=== PATIENT | male | born 1960 | race African-American/Black ===

== ENCOUNTER 2017-07-08 17:16 | Emergency (ER) | payer SELFPAY ==
[~2017-07-08] VITALS: Ht 175.3 cm; Wt 68.0 kg
[2017-07-08 17:17] VITALS: BP 167/96; PULSE 89; RESP 16; TEMP 98.7; O2SAT 98
[2017-07-08] MEDS ORDERED: AZIT500T2 PO (17:46)
[2017-07-08] MEDS ORDERED: MOME17I EACH NARE (17:46)
--- NOTE | 2017-07-08 17:47 | PD ---
HPI Chief Complaint: Cold / Flu Symptoms Time Seen by Provider: 17:31 Travel History International Travel<30 days: No Contact w/Intl Traveler<30days: No Traveled to known affect area: No History of Present Illness HPI 57-year-old male presents to the emergency Department with complaint of cough, nasal congestion, sore throat 9 days. Report subjective fever. Denies abdominal pain, vomiting. Denies chest pain, shortness breath, wheezing. Denies ear pain. Has been taking TheraFlu and DayQuil/NyQuil for symptom management. No known sick contacts. Reports tobacco use. No known aggravating or relieving factors. Symptoms are mild in severity. No known allergies. No primary care provider. Denies significant past medical history. Has no medical complaints. No other modifying factors or associated signs and symptoms. PFSH Past Medical History Asthma: No Blood Disorders: No Heart Rhythm Problems: No Cancer: No Cardiovascular Problems: No High Cholesterol: No Chemotherapy: No Chest Pain: Yes Congestive Heart Failure: No COPD: No Diminished Hearing: No Endocrine: No Gout: Yes Genitourinary: No Hypertension: Yes Immune Disorder: No Musculoskeletal: No Neurologic: No Psychiatric: No Reproductive: No Respiratory: Yes (BRONCHITITS,previous pneumothorax) Immunizations Current: No Radiation Therapy: No Past Surgical History Abdominal Surgery: Yes (HERNIA REPAIR ) AICD: No Arteriovenous Shunt: No Cardiac Surgery: Yes Ear Surgery: No Endocrine Surgery: No Eye Surgery: No Genitourinary Surgery: No Insulin Pump: No Joint Replacement: No Oral Surgery: No Pacemaker: No Thoracic Surgery: Yes (2.5 MONTHS AGO, COLAPSED RIGHT LUNG) Other Surgery: Yes (CHEST TUBE 01/27/07 colapsed lung) Social History Alcohol Use: Yes Tobacco Use: Yes Substance Use: Yes (CRACK, CANNABIS ) Allergies-Medications (Allergen,Severity, Reaction): Coded Allergies: No Known Allergies (Verified Adverse Reaction, Unknown, 07/08/17) Reported Meds & Prescriptions Reported Meds & Active Scripts Active Nasonex Nasal [place] (Mometasone Furoate) 50 Mcg/Act Naspr 2 [place] EACH NARE DAILY PRN Azithromycin 500 Mg Tab 500 Mg PO DAILY Review of Systems Except as stated in HPI: all other systems reviewed are Neg Physical Exam Narrative GENERAL: Well-nourished, well-developed black male patient, in no acute distress ; afebrile, nontoxic-appearing SKIN: Warm and dry. No rash. HEAD: Atraumatic. Normocephalic. EYES: Pupils equal and round. No scleral icterus. No injection or drainage. ENT: Mucosa pink and moist. No erythema or exudates. No uvular edema. No uvular , palatal, or tonsillar deviation. Airway patent. EARS: Bilateral pinnae and external canals appear within normal limits. Bilateral tympanic membranes without erythema, dullness or perforation. NECK: Trachea midline. No lymphadenopathy. CARDIOVASCULAR: Regular rate and rhythm. No murmur appreciated. RESPIRATORY: No accessory muscle use. Clear to auscultation. Breath sounds equal bilaterally. No retractions or tachypnea. GASTROINTESTINAL: Abdomen soft, non-tender, nondistended. Hepatic and splenic margins not palpable. Bowel sounds are active 4 quadrants. MUSCULOSKELETAL: No obvious deformities. No clubbing. No cyanosis. No edema. NEUROLOGICAL: Awake and alert. Oriented 3. No obvious cranial nerve deficits. Motor grossly within normal limits. Normal speech. Moves all extremities. 5/5 strength to all extremities. PSYCHIATRIC: Appropriate mood and affect; insight and judgment normal. Data Data Last Documented VS Vital Signs Date Time Temp Pulse Resp B/P (MAP) Pulse Ox O2 Delivery O2 Flow Rate FiO2 07/08/17 17:17 98.7 89 16 167/96 (119) 98 Orders Orders Ed Discharge Order (07/08/17 17:47) [facility] Medical Decision Making Medical Screen Exam Complete: Yes Emergency Medical Condition: Yes Medical Record Reviewed: Yes Differential Diagnosis Upper respiratory infection, sinusitis, allergies Narrative Course 57-year-old male with cold symptoms 9 days. She is afebrile and nontoxic- appearing. Denies fever, vomiting. Physical exam is unremarkable. I will prescribe antibiotics secondary to length of illness. Azithromycin and Nasonex nasal spray prescribed for home. Instructed patient to follow up with primary care provider. Patient verbalizes understanding and agreement with treatment plan. Patient is medically cleared and stable for discharge. Discussed reasons to return to the emergency department. Patient agrees with treatment plan. The patients vital signs are stable and the patient is stable for outpatient follow-up and treatment. Patient discharged home, stable and in no acute distress. Diagnosis Primary Impression: Upper respiratory infection Qualified Codes: J06.9 - Acute upper respiratory infection, unspecified Referrals: [facility] Primary Care Physician Patient Instructions: General Instructions, Safe Use of Cough and Cold Medicines (ED), Upper Respiratory Infection (ED) Departure Forms: Tests/Procedures, Work Release Enter return to work date: Jul 10, 2017 Additional Instructions: Antibiotics as prescribed and complete full course Ibuprofen or Tylenol as instructed and as needed for fever/pain [id number] cough and cold medications as directed and as needed for symptom management Get plenty of sleep/rest Drink plenty of fluids to prevent dehydration; popsicles and Gatorade Use an air humidifier/turn off ceiling fans Follow-up with primary care provider Return immediately to the emergency department with worsening of symptoms Med/Other Pt SpecificInfo: Prescription(s) given Scripts Mometasone Nasal [place] (Nasonex Nasal [place]) 50 Mcg/Act Naspr 2 SPRAY EACH NARE DAILY Y for NASAL CONGESTION, #1 BOTTLE 0 Refills Prov: Ana Lilia Valentine 07/08/17 Azithromycin (Azithromycin) 500 Mg Tab 500 MG PO DAILY for Infection, #5 TAB 0 Refills Prov: Ana Lilia Valentine 07/08/17 Disposition: 01 DISCHARGE HOME Condition: Stable Ana Lilia Valentine Jul 08, 2017 17:47
== END 2017-07-08 18:31 | disposition home or self-care (01) ==
LOC: NEPD 17:16
DX: J06.9 Acute upper respiratory infection, unspecified (principal); M10.9 Gout, unspecified; I10 Essential (primary) hypertension; Z79.899 Other long term (current) drug therapy; Z72.0 Tobacco use
CPT/HCPCS: 99283

== ENCOUNTER 2018-04-13 11:28 | Inpatient (IN) ==
--- NOTE | 2018-04-13 12:16 | ED ---
HPI General Chief Complaint: Respiratory Symptoms Stated Complaint: respiratory Time Seen by Provider: 04/13/18 11:42 Source: patient Mode of arrival: ambulatory Limitations: no limitations History of Present Illness HPI Narrative: 58-year-old male notes 2-week history of cough, congestion and difficulty breathing. He states in 2006 he had to have oxygen when he had a collapsed lung but denies any recent use otherwise. He states he feels worse when he moves around. He states he tried to take [id number]-seriukc TheraFlu without relief. MD Complaint: Reports cough, rhinorrhea and nasal congestion Onset (ago): week(s) Duration: progressively worsening Relieving factors: nothing Exacerbating factors: other (Movement) Able to tolerate fluids by mouth: Yes Associated symptoms: Reports denies other symptoms Treatments prior to arrival: Reports "cold medicine" Related Data Home Medications Medication Instructions Recorded Confirmed No Known Home Medications 04/13/18 04/13/18 Allergies Allergy/AdvReac Type Severity Reaction Status Date / Time No Known Allergies Allergy Verified 04/13/18 11:39 Review of Systems ROS: all other systems reviewed are negative REPLACED BY [facility] Medical History Medical History Collapsed lung (Acute) Social History Social History Substance History: No History of Abuse Second Hand Smoke Exposure: Yes Smoking Status: Current some day smoker Tobacco Type: Cigarettes How Often Do You Have a Drink Containing Alcohol: Never Recent Travel in [facility] within the Last 8 Weeks: No Recent Out of Country Travel within the Last 8 Weeks: No Immunization History Tetanus Immunization: >5 Years Exam Narrative Exam Narrative: GENERAL: 58-year-old male in no apparent distress SKIN: Focused skin assessment warm/dry. HEAD: Atraumatic. Normocephalic. EYES: Pupils equal and round. No scleral icterus. No injection or drainage. ENT: No nasal bleeding or discharge. Mucous membranes pink and moist. NECK: Trachea midline. No JVD. CARDIOVASCULAR: Regular rate and rhythm. No murmur appreciated. RESPIRATORY: No accessory muscle use. Clear inspiration with decreased sounds bilaterally on expiration GASTROINTESTINAL: Abdomen soft, non-tender, nondistended. MUSCULOSKELETAL: No obvious deformities. No clubbing. No cyanosis. No edema. NEUROLOGICAL: Awake. Motor grossly within normal limits. Normal speech. Course Reevaluation(s) Reevaluation #1: X-ray shows possible pneumonia. Will check CTA given hypoxemia to rule out PE, patient agrees Reevaluation #2: Patient's oxygen has been weaned down to 2 L and he is feeling better after breathing treatments. Will admit for further care, given antibiotics. Patient agrees Consultations Consultation #1: dr morocho agrees to admit Initial Documented Vital Signs Temperature 99.6 F 04/13/18 11:33 Pulse Rate 102 H 04/13/18 11:33 Blood Pressure 141/82 H 04/13/18 11:33 Pulse Oximetry 84 L 04/13/18 11:33 Last Documented Vital Signs Temperature 98.9 F 04/13/18 16:00 Pulse Rate 89 04/13/18 16:00 Respiratory Rate 22 04/13/18 16:00 Blood Pressure 121/76 04/13/18 16:00 Pulse Oximetry 97 04/13/18 16:00 Medical Decision Making MDM Narrative Medical decision making narrative: Will check blood work, chest x-ray, EKG and dose with DuoNeb and reevaluate. Patient is requiring approximately 5 L of nasal cannula oxygen to maintain saturation and he will need to be admitted for further care after initial workup. If initial workup does not show reason for hypoxemia he may need a CT of the chest for possible PE Medical Screen Exam Complete: Yes Emergency Medical Condition: Yes Differential Diagnosis Differential Diagnosis: Pneumonia, pneumothorax, URI, anemia, renal failure Lab Data Lab results reviewed: Yes I reviewed the patient's lab results. Result diagrams: 04/13/18 11:45 04/13/18 12:41 Lab Results 04/13/18 04/13/18 04/13/18 Range/Units 11:45 11:45 11:45 WBC 7.9 (4.0-11.0) th/mm3 RBC 5.30 (4.50-5.90) mil/mm3 Hgb 12.3 L (13.0-17.0) gm/dL Hct 38.3 L (39.0-51.0) % MCV 72.3 L (80.0-100.0) fL MCH 23.3 L (27.0-34.0) pg MCHC 32.2 (32.0-36.0) % RDW 15.5 (11.6-17.2) % Plt Count 296 (150-450) th/mm3 MPV 8.5 (7.0-11.0) fL Neut % (Auto) 82.5 H (16.0-70.0) % Lymph % (Auto) 13.1 (9.0-44.0) % [place] % (Auto) 3.7 (0.0-8.0) % Eos % (Auto) 0.3 (0.0-4.0) % Baso % (Auto) 0.4 (0.0-2.0) % Neut # (Auto) 6.6 (1.8-7.7) th/mm3 Lymph # (Auto) 1.0 (1.0-4.8) th/mm3 [place] # (Auto) 0.3 (0.0-0.9) th/mm3 Eos # (Auto) 0.0 (0.0-0.4) th/mm3 Baso # (Auto) 0.0 (0.0-0.2) th/mm3 WBC Differential . Differential Comment Auto diff final PT 11.3 (9.8-11.6) sec INR 1.1 Ratio APTT 30.2 H (24.3-30.1) sec Sodium (136-145) meq/L Potassium (3.5-5.1) meq/L Chloride (98-107) meq/L Carbon Dioxide (21.0-32.0) meq/L Anion Gap (5-15) meq/L BUN (7-18) mg/dL Creatinine (0.60-1.30) mg/dL Estimated GFR (>89) mL/min Random Glucose (74-106) mg/dL Lactic Acid 1.2 (0.4-2.0) mmol/L Calcium (8.5-10.1) mg/dL Magnesium (1.5-2.5) mg/dL Total Bilirubin (0.2-1.0) mg/dL AST (15-37) U/L ALT (12-78) U/L Alkaline Phosphatase (45-117) U/L Total Creatine Kinase (39-308) U/L Troponin I (0.02-0.05) ng/mL B-Natriuretic Peptide (0-100) pg/mL Total Protein (6.4-8.2) g/dL Albumin (3.4-5.0) g/dL 04/13/18 04/13/18 Range/Units 11:45 12:41 WBC (4.0-11.0) th/mm3 RBC (4.50-5.90) mil/mm3 Hgb (13.0-17.0) gm/dL Hct (39.0-51.0) % MCV (80.0-100.0) fL MCH (27.0-34.0) pg MCHC (32.0-36.0) % RDW (11.6-17.2) % Plt Count (150-450) th/mm3 MPV (7.0-11.0) fL Neut % (Auto) (16.0-70.0) % Lymph % (Auto) (9.0-44.0) % [place] % (Auto) (0.0-8.0) % Eos % (Auto) (0.0-4.0) % Baso % (Auto) (0.0-2.0) % Neut # (Auto) (1.8-7.7) th/mm3 Lymph # (Auto) (1.0-4.8) th/mm3 [place] # (Auto) (0.0-0.9) th/mm3 Eos # (Auto) (0.0-0.4) th/mm3 Baso # (Auto) (0.0-0.2) th/mm3 WBC Differential Differential Comment PT (9.8-11.6) sec INR Ratio APTT (24.3-30.1) sec Sodium 132 L (136-145) meq/L Potassium 4.1 (3.5-5.1) meq/L Chloride 97 L (98-107) meq/L Carbon Dioxide 27.3 (21.0-32.0) meq/L Anion Gap 8 (5-15) meq/L BUN 13 (7-18) mg/dL Creatinine 1.06 (0.60-1.30) mg/dL Estimated GFR 87 L (>89) mL/min Random Glucose 104 (74-106) mg/dL Lactic Acid (0.4-2.0) mmol/L Calcium 8.0 L (8.5-10.1) mg/dL Magnesium 1.9 (1.5-2.5) mg/dL Total Bilirubin 0.4 (0.2-1.0) mg/dL AST 47 H (15-37) U/L ALT 11 L (12-78) U/L Alkaline Phosphatase 49 (45-117) U/L Total Creatine Kinase 70 (39-308) U/L Troponin I Less than 0.02 L (0.02-0.05) ng/mL B-Natriuretic Peptide 38 (0-100) pg/mL Total Protein 7.8 (6.4-8.2) g/dL Albumin 2.1 L (3.4-5.0) g/dL Imaging Data Attestation: I personally reviewed and interpreted this imaging study as follows : Radiologist's impression: Chest X-Ray 04/13/18 11:42 CONCLUSION: 1. Mild diffuse interstitial edema and patchy airspace disease in the left mid to lower lung zones. Differential considerations include pneumonia versus atypical pulmonary edema versus atypical pneumonia in the appropriate clinical setting. Chest CTA 04/13/18 14:02 CONCLUSION: 1. No CT evidence for pulmonary artery embolism. 2. Marked interval progression/development of interstitial lung disease combined with progressive paraseptal and centrilobular emphysema and bronchiectasis. Although nonspecific, differential considerations include significant interval occupational or inhalational exposure versus drug reaction. 3. Diffuse groundglass opacities in the lower lobes, left greater than right, with focal airspace consolidation in the left lower lobe may reflect more acute superimposed airspace disease. Discharge Plan Discharge Disposition Patient Disposition: 30 Still Patient Discharge Details Diagnosis: Pneumonia, Hypoxia Physicians Team ED Provider: Casi Cline Primary Care Provider: Primary Care Kanchan Bojorquez Attending Provider: Paris Morocho Status ED Status: Admitted Patient
[2018-04-13 12:22] LABS: Baso % (Auto) 0.4 % (0.0-2.0); Eos % (Auto) 0.3 % (0.0-4.0); Hematocrit 38.3 % (39.0-51.0); Hemoglobin 12.3 gm/dL (13.0-17.0); Lymph % (Auto) 13.1 % (9.0-44.0); Mean Corpuscular HGB Conc 32.2 % (32.0-36.0); Mean Corpuscular Hemoglobin 23.3 pg (27.0-34.0); Mean Corpuscular Volume 72.3 fL (80.0-100.0); Mean Platelet Volume 8.5 fL (7.0-11.0); Mono # (Auto) 0.3 th/mm3 (0.0-0.9); Mono % (Auto) 3.7 % (0.0-8.0); Neut # (Auto) 6.6 th/mm3 (1.8-7.7); Neut % (Auto) 82.5 % (16.0-70.0); Platelet Count 296 th/mm3 (150-450); Red Cell Distribution Width 15.5 % (11.6-17.2); White Blood Count 7.9 th/mm3 (4.0-11.0)
--- NOTE | 2018-04-13 12:24 | XR ---
EXAM DATE: 04/13/2018 11:42 AM EDT AGE/SEX: 58 years / Male INDICATIONS: Shortness of breath. CLINICAL DATA: This is the patient's initial encounter. Patient reports that signs and symptoms have been present for 1 day and indicates a pain score of 0/10. MEDICAL/SURGICAL HISTORY: None. None. [place] [facility] [place]. . Mild diffusely increased interstitial prominence with patchy airspace opacities in the left mid to lo wer lung zones. The cardiomediastinal contours are unremarkable. Osseous structures are intact. CONCLUSION: 1. Mild diffuse interstitial edema and patchy airspace disease in the left mid to lower lung zones. Differential considerations include pneumonia versus atypical pulmonary edema versus atypical pneumon ia in the appropriate clinical setting. Electronically signed by: Vic Woody MD 04/13/2018 12:23 PM EDT
[2018-04-13 12:30] LABS: Activated Partial Thrombo Time 30.2 sec (24.3-30.1); INR 1.1 Ratio; Prothrombin Time 11.3 sec (9.8-11.6)
[2018-04-13] MEDS ORDERED: Azithromycin Inj 500 MG in Sodium Chlor 0.9% Inj 250 ML IV.SIG STA (13:01)
[2018-04-13 13:53] LABS: Alanine Aminotransferase 11 U/L (12-78); Albumin 2.1 g/dL (3.4-5.0); Alkaline Phosphatase 49 U/L (45-117); Anion Gap 8 meq/L (5-15); Aspartate Aminotransferase 47 U/L (15-37); Blood Urea Nitrogen 13 mg/dL (7-18); Carbon Dioxide 27.3 meq/L (21.0-32.0); Chloride 97 meq/L (98-107); Glomerular Filtration Rate 87 mL/min (>89); Glucose,Random 104 mg/dL (74-106); Magnesium 1.9 mg/dL (1.5-2.5); Potassium 4.1 meq/L (3.5-5.1); Sodium 132 meq/L (136-145); Total Protein 7.8 g/dL (6.4-8.2)
[2018-04-13 13:56] LABS: Creatine Kinase 70 U/L (39-308)
[2018-04-13] MEDS ORDERED: MethylPREDNISolone Sod Succinate Inj 125 MG/2 ML Vial IV.PUSH ONE (15:29)
--- NOTE | 2018-04-13 16:51 | CT ---
EXAM DATE: 04/13/2018 2:11 PM EDT AGE/SEX: 58 years / Male INDICATIONS: Short of breath. CLINICAL DATA: This is the patient's initial encounter. Patient reports that signs and symptoms have been present for 1 day and indicates a pain score of 0/10. MEDICAL/SURGICAL HISTORY: . Collapsed lung. None. RADIATION DOSE: 6.83 CTDI (mGy) COMPARISON: [facility] – [place]ULMONARY [place]GIO[place], 02/23/2016. . TECHNIQUE: Volumetric scanning was performed using a multi-row detector CT scanner during bolus infu ashly of 65 ml Omnipaque 350 (iohexol) nonionic water-soluble contrast as a single exam dose. The edward a was post processed with a variety of visualization algorithms including full volume maximum intensi ty projection and sliding thin slab reformation. Using automated exposure control and adjustment of the mA and/or kV according to patient size, radiation dose was kept as low as reasonably achievable t o obtain optimal diagnostic quality images. DICOM format image data is available electronically for review and comparison. FINDINGS: Pulmonary Arteries: No filling defects are seen in the pulmonary arteries through the segmental vess els. The main pulmonary artery is normal in diameter. Lung: Severe diffuse interstitial thickening with relative subpleural sparing. Diffuse mild bronchie ctasis with biapical scarring and paraseptal emphysema. Previous examination demonstrated limited anika pical scarring, bronchiectasis and paraseptal emphysema. Moderate diffuse centrilobular emphysema. Di ffuse groundglass opacities in the lower lobes bilaterally, most prominently in the left lower lobe. There is also focal airspace consolidation in the left lower lobe. Pleura: No effusion, significant pleural thickening or pneumothorax. Mediastinum: Heart is unremarkable without pericardial effusion. Subcentimeter mediastinal nodes do not CT size criteria.. Osseous Structures: No abnormal focal lytic or blastic bony lesions. Other: Visulaized upper abdomen is unremarkable. CONCLUSION: 1. No CT evidence for pulmonary artery embolism. 2. Marked interval progression/development of interstitial lung disease combined with progressive pa raseptal and centrilobular emphysema and bronchiectasis. Although nonspecific, differential considera tions include significant interval occupational or inhalational exposure versus drug reaction. 3. Diffuse groundglass opacities in the lower lobes, left greater than right, with focal airspace co nsolidation in the left lower lobe may reflect more acute superimposed airspace disease. Electronically signed by: Vic Woody MD 04/13/2018 4:50 PM EDT
--- NOTE | 2018-04-13 17:59 | P.HPIM ---
History of Present Illness Primary Care Physician: No Primary Care Physician History of Present Illness: 58 year old male with history of spontaneous pneumothorax x2 and chronic tobacco abuse presenting with productive cough and shortness of breath x 2 weeks. Cough is productive of a clear mucous. He also complains of chest tightness, wheezing, and subjective fevers. He took OTC Theraflu with no relief. He reports improvement in his symptoms after nebulizers in the ED. He hasn't had a flu shot this season and he has never had a pneumonia vaccine. He endorses decreased appetite and unintentional weight loss. He thinks he may have lost close to 20 lb in about a month and a half. He states his normal weight is 155 lb. He checked his weight three days ago at [facility] and he was 131 lb. He denies night sweats, abdominal pain, melena, hematochezia, dysuria, rash , confusion, nausea, or vomiting. 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, negative stress test 2015, prior hospitalizations for PNA Surgical hx: hernia repair Family hx: both parents , mother had DM, father was murdered Social hx: lives with girlfriend, drinks about four beers daily, smokes 1/2PPD x 40 years, smokes crack cocaine - Diagnosis (1) Pneumonia (2) Hypoxia Inpatient Certification: I certify that the inpatient services were ordered in accordance with Medicare regulations governing the order. This includes certification that hospital inpatient services are reasonable and necessary and in the case of services not specified as inpatient-only under 42 CFR 419.22(n), that they are appropriately provided as inpatient services in accordance to with the 2-midnight benchmark under 43 CFR 412.3(e) Estimated Total Length of Stay (Days): 2 Plans for Post Hospital Care: Home Review of Systems All other systems reviewed negative except as stated in HPI PMFSH - History History Provided By: Patient - Medical History Medical History: Medical History (Last Updated 04/13/18 @ 18:23 by Paris Morocho MD) Spontaneous pneumothorax Tobacco abuse - Surgical History Surgical History: Surgical History (Last Updated 04/13/18 @ 18:22 by Paris Morocho MD) Hx of hernia repair - Family History Family History: Family History (Last Updated 04/13/18 @ 18:23 by Paris Morocho MD) Mother Diabetes - Social History I have reviewed the patient's Social History: Yes - Tobacco History Second Hand Smoke Exposure: Yes Tobacco Use In Past 30 Days: Yes Smoking Status: Current some day smoker Tobacco Type: Cigarettes - Alcohol History How Often Do You Have a Drink Containing Alcohol: Never - Substance Use History Substance History: No History of Abuse - Travel History Recent Travel in the [place] Within the Last 8 Weeks: No Recent Travel Out of the Country Within the Last 8 Weeks: No - Immunization History Tetanus Immunization: >5 Years Medications and Allergies Allergies Allergy/AdvReac Type Severity Reaction Status Date / Time No Known Allergies Allergy Verified 04/13/18 11:39 Home Medications Medication Instructions Recorded Confirmed Type No Known Home Medications 04/13/18 04/13/18 History Exam Vital signs: Vital Signs 04/13/18 11:33 04/13/18 11:39 04/13/18 11:45 Temperature 99.6 F Pulse Rate 102 H 93 H Respiratory Rate 29 H Blood Pressure 141/82 H 147/93 H Pulse Oximetry 84 L 97 95 04/13/18 12:03 04/13/18 13:36 04/13/18 14:00 Temperature Pulse Rate 92 H 85 85 Respiratory Rate 20 17 Blood Pressure 133/84 Pulse Oximetry 97 04/13/18 15:36 04/13/18 16:00 Temperature 98.9 F Pulse Rate 90 89 Respiratory Rate 22 22 Blood Pressure 121/76 Pulse Oximetry 97 Intake & Output 04/12/18 04/13/18 04/13/18 18:59 06:59 18:59 Intake Total 350 / 350 Balance 350 / 350 Weight 59.421 kg Intake: IV 350 / 350 Azithromycin Inj 500 MG In NS 250 / 250 Inj 250 ML @ 250 mls/hr IV.SIG STAT STA Rx#:[id number] Rocephin Inj 2,000 MG In NS Inj 100 / 100 100 ML @ 200 mls/hr IV.SIG STAT STA Rx#:[id number] Narrative: GENERAL: Thin male resting in bed in NAD. SKIN: Warm and dry. HEENT: AT/NC. PERRLA. No nasal drainage. Nasal cannula in place. MMM. Poor dentition. NECK: Supple no tender LAD or JVD. No palpable lymphadenopathy. HEART: RRR no m/r/g. LUNGS: No increased work of breathing. Left base with crackles otherwise clear and no wheezing. ABDOMEN: +BS, soft, NT, ND. EXTREMITIES: No LE edema. 2+ pedal pulses. NEURO: Awake and alert. Results - Labs CBC & Chem 7: 04/13/18 11:45 04/13/18 12:41 Labs: Short CBC 04/13/18 Range/Units 11:45 WBC 7.9 (4.0-11.0) th/mm3 Hgb 12.3 L (13.0-17.0) gm/dL Hct 38.3 L (39.0-51.0) % Plt Count 296 (150-450) th/mm3 BMP 04/13/18 12:41 Sodium 132 L Potassium 4.1 Chloride 97 L Carbon Dioxide 27.3 BUN 13 Creatinine 1.06 Calcium 8.0 L Cardiac Enzymes 04/13/18 Range/Units 12:41 Total Creatine Kinase 70 (39-308) U/L Troponin I Less than 0.02 L (0.02-0.05) ng/mL Liver Function 04/13/18 Range/Units 12:41 Total Bilirubin 0.4 (0.2-1.0) mg/dL AST 47 H (15-37) U/L ALT 11 L (12-78) U/L Alkaline Phosphatase 49 (45-117) U/L Albumin 2.1 L (3.4-5.0) g/dL - Imaging Impressions Chest X-Ray 04/13/18 11:42 CONCLUSION: 1. Mild diffuse interstitial edema and patchy airspace disease in the left mid to lower lung zones. Differential considerations include pneumonia versus atypical pulmonary edema versus atypical pneumonia in the appropriate clinical setting. Chest CTA 04/13/18 14:02 CONCLUSION: 1. No CT evidence for pulmonary artery embolism. 2. Marked interval progression/development of interstitial lung disease combined with progressive paraseptal and centrilobular emphysema and bronchiectasis. Although nonspecific, differential considerations include significant interval occupational or inhalational exposure versus drug reaction. 3. Diffuse groundglass opacities in the lower lobes, left greater than right, with focal airspace consolidation in the left lower lobe may reflect more acute superimposed airspace disease. Caprini VTE Risk Assessment Caprini VTE Risk Assessment: Moderate/High Risk (score >= 2) Caprini Risk Assessment Model: Point Value = 1 Point Value = 2 Point Value = 3 Point Value = 5 Age 41-60 Minor surgery BMI > 25 kg/m2 Swollen legs Varicose veins or History of unexplained or recurrent spontaneous Oral contraceptives or hormone replacement Sepsis (< 1 month) Serious lung disease, including pneumonia (< 1 month) Abnormal pulmonary function Acute myocardial infarction Congestive heart failure (< 1 month) History of inflammatory bowel disease Medical patient at bed rest Age 61-74 Arthroscopic surgery Major open surgery (> 45 min) Laparoscopic surgery (> 45 min) Malignancy Confined to bed (> 72 hours) Immobilizing plaster cast Central venous access Age >= 75 History of VTE Family history of VTE Factor V Leiden Prothrombin [id number] Lupus anticoagulant Anticardiolipin antibodies Elevated serum homocysteine Heparin-induced thrombocytopenia Other congenital or acquired thrombophilia Stroke (< 1 month) Elective arthroplasty Hip, pelvis, or leg fracture Acute spinal cord injury (< 1 month) Prophylaxis Regimen: Total Risk Factor Score Risk Level Prophylaxis Regimen 0-1 Low Early ambulation 2 Moderate Order ONE of the following: *Sequential Compression Device (SCD) *Heparin 5000 units SQ BID 3-4 Higher Order ONE of the following medications: *Heparin 5000 units SQ TID *Enoxaparin/Lovenox 40 mg SQ daily (WT < 150 kg, CrCl > 30 mL/min) *Enoxaparin/Lovenox 30 mg SQ daily (WT < 150 kg, CrCl > 10-29 mL/min) *Enoxaparin/Lovenox 30 mg SQ BID (WT < 150 kg, CrCl > 30 mL/min) AND/OR *Sequential Compression Device (SCD) 5 or more Highest Order ONE of the following medications: *Heparin 5000 units SQ TID (Preferred with Epidurals) *Enoxaparin/Lovenox 40 mg SQ daily (WT < 150 kg, CrCl > 30 mL/min) *Enoxaparin/Lovenox 30 mg SQ daily (WT < 150 kg, CrCl > 10-29 mL/min) *Enoxaparin/Lovenox 30 mg SQ BID (WT < 150 kg, CrCl > 30 mL/min) AND *Sequential Compression Device (SCD) Assessment and Plan - Assessment (1) Pneumonia Code(s): J18.9 - Pneumonia, unspecified organism Status: Acute (2) Hypoxia Code(s): R09.02 - Hypoxemia Status: Acute - Plan 58 year old male with history of spontaneous pneumothorax x2 and chronic tobacco abuse presenting with productive cough and shortness of breath x 2 weeks. CXR reveals patchy densities in left [id number] lung valera with associated crackles in that region. He will be admitted for pneumonia and hypoxia. 1. Pneumonia Saturating 84% on room air on arrival CXR showing patchy densities in the left middle and lower lung valera, personally reviewed by myself No leukocytosis but there is a prominence of neutrophils Lactic acid within normal limits CTA negative for PE but there is marketed interstitial lung disease with progressive emphysema bronchiectasis as well as diffuse groundglass opacities in the lower lobes with focal airspace consolidation left lower lobe consistent with PNA seen on CXR DuoNeb Q4 Albuterol nebulizer PRN Rocephin and azithromycin Supplemental O2 PRN Check sputum cultures, urine Legionella pneumococcal antigens, and influenza antigens 2. Anemia Hemoglobin 14 back in 2016 Patient denies any obvious bleeding or melena He does have an unintentional weight loss that he reports has been over the past month and a half CT chest negative for any signs of malignancy Will check a Hemoccult but he will at the very least need a colonoscopy as an outpatient. Has never had one and he is 58 3. Tobacco abuse Counseled on cessation Nicotine patch 4. Alcohol abuse Mildly elevated AST CIWA protocol 5. Cocaine abuse Counseled on cessation DVT prophylaxis: Lovenox Code Status: FULL Discussed Condition With: Patient (1) Pneumonia Qualifiers: Pneumonia type: due to unspecified organism Laterality: left Lung location: lower lobe of lung Qualified Code(s): J18.1 - Lobar pneumonia, unspecified organism
[2018-04-13] MEDS ORDERED: Acetaminophen 325 MG Tablet PO PRN (18:02)
[2018-04-13] MEDS ORDERED: Bisacodyl 10 MG Supp RECTAL PRN (18:02)
[2018-04-13] MEDS ORDERED: LORazepam 1 MG Tablet PO PRN (18:48)
[2018-04-13] MEDS ORDERED: Haloperidol Inj 5 MG/ML Ampul IV.PUSH PRN (18:48)
[2018-04-13] MEDS: guaiFENesin 600 MG ER Tablet PO SCH ×2 (19:39→21:49)
[2018-04-13] MEDS: Senna/Docusate Sodium 8.6/50 MG Tablet PO SCH ×2 (19:39→21:50)
[2018-04-13] MEDS: Enoxaparin Inj 40 MG/0.4 ML Syringe SQ SCH ×2 (19:39→21:49)
[2018-04-13] MEDS: MethylPREDNISolone Sod Succinate Inj 40 MG/ML Vial IV.PUSH SCH (23:19)
[2018-04-14] MEDS: MethylPREDNISolone Sod Succinate Inj 40 MG/ML Vial IV.PUSH SCH ×3 (05:05→16:40)
[2018-04-14 05:53] LABS: Baso % (Auto) 0.3 % (0.0-2.0); Hematocrit 36.1 % (39.0-51.0); Hemoglobin 11.5 gm/dL (13.0-17.0); Lymph # (Auto) 0.8 th/mm3 (1.0-4.8); Lymph % (Auto) 18.6 % (9.0-44.0); Mean Corpuscular HGB Conc 31.7 % (32.0-36.0); Mean Corpuscular Hemoglobin 23.3 pg (27.0-34.0); Mean Corpuscular Volume 73.5 fL (80.0-100.0); Mean Platelet Volume 8.6 fL (7.0-11.0); Mono # (Auto) 0.1 th/mm3 (0.0-0.9); Mono % (Auto) 1.6 % (0.0-8.0); Neut # (Auto) 3.4 th/mm3 (1.8-7.7); Neut % (Auto) 79.5 % (16.0-70.0); Platelet Count 275 th/mm3 (150-450); Red Blood Count 4.91 mil/mm3 (4.50-5.90); Red Cell Distribution Width 15.8 % (11.6-17.2); White Blood Count 4.2 th/mm3 (4.0-11.0)
[2018-04-14 06:16] LABS: Calcium 8.3 mg/dL (8.5-10.1); Potassium 4.4 meq/L (3.5-5.1)
[2018-04-14 08:36] VITALS: RESP 16
[2018-04-14] MEDS ORDERED: Azithromycin 250 MG Tablet PO SCH (09:00)
--- NOTE | 2018-04-14 09:42 | P.PN ---
Subjective Interval history: Follow-up for pneumonia. Patient is currently doing well. Denies any chest pain, shortness of breath, fever or chills. He admits to using crack cocaine but denies using any IV drugs. Physical Exam Vital signs: Vital Signs 04/13/18 11:33 04/13/18 11:39 04/13/18 11:45 Temperature 99.6 F Pulse Rate 102 H 93 H Respiratory Rate 29 H Blood Pressure 141/82 H 147/93 H Pulse Oximetry 84 L 97 95 04/13/18 12:03 04/13/18 13:36 04/13/18 14:00 Temperature Pulse Rate 92 H 85 85 Respiratory Rate 20 17 Blood Pressure 133/84 Pulse Oximetry 97 04/13/18 15:36 04/13/18 16:00 04/13/18 19:41 Temperature 98.9 F Pulse Rate 90 89 88 Respiratory Rate 22 22 16 Blood Pressure 121/76 Pulse Oximetry 97 96 04/13/18 20:00 04/13/18 23:56 04/14/18 00:00 Temperature 99.1 F 98.0 F Pulse Rate 90 76 87 Respiratory Rate 18 16 16 Blood Pressure 136/76 119/70 Pulse Oximetry 93 L 92 L 04/14/18 04:00 04/14/18 04:10 04/14/18 08:00 Temperature 97.5 F L 97.4 F L Pulse Rate 76 74 Respiratory Rate 18 16 Blood Pressure 184/88 H 123/79 118/75 Pulse Oximetry 92 L 93 L 04/14/18 08:53 Temperature Pulse Rate 74 Respiratory Rate 16 Blood Pressure Pulse Oximetry 93 L Intake & Output 04/13/18 04/14/18 04/14/18 18:59 06:59 18:59 Intake Total 350 / 350 620 / 620 Balance 350 / 350 620 / 620 Weight 59.421 kg 52.3 kg Intake: IV 350 / 350 Azithromycin Inj 500 MG In NS 250 / 250 Inj 250 ML @ 250 mls/hr IV.SIG STAT STA Rx#:[id number] Rocephin Inj 2,000 MG In NS Inj 100 / 100 100 ML @ 200 mls/hr IV.SIG STAT STA Rx#:[id number] Oral 620 / 620 Other: # Voids 4 Narrative: GENERAL: Alert, oriented x3, NAD. SKIN: Warm and dry. HEAD: Normocephalic. EYES: No scleral icterus. No injection or drainage. NECK: Supple, trachea midline. No JVD or lymphadenopathy. CARDIOVASCULAR: Regular rate and rhythm without murmurs, gallops, or rubs. RESPIRATORY: Breath sounds equal bilaterally. No accessory muscle use. GASTROINTESTINAL: Abdomen soft, non-tender, nondistended. MUSCULOSKELETAL: No cyanosis, or edema. BACK: Nontender without obvious deformity. No CVA tenderness. Results - Labs CBC & Chem 7: 04/14/18 04:07 04/14/18 04:07 Laboratory Results - last 24 hr 04/13/18 04/13/18 04/13/18 11:45 11:45 11:45 WBC 7.9 RBC 5.30 Hgb 12.3 L Hct 38.3 L MCV 72.3 L MCH 23.3 L MCHC 32.2 RDW 15.5 Plt Count 296 MPV 8.5 Neut % (Auto) 82.5 H Lymph % (Auto) 13.1 Hancock % (Auto) 3.7 Eos % (Auto) 0.3 Baso % (Auto) 0.4 Neut # (Auto) 6.6 Lymph # (Auto) 1.0 Hancock # (Auto) 0.3 Eos # (Auto) 0.0 Baso # (Auto) 0.0 WBC Differential . Differential Comment Auto diff final PT 11.3 INR 1.1 APTT 30.2 H Sodium Potassium Chloride Carbon Dioxide Anion Gap BUN Creatinine Estimated GFR Random Glucose Lactic Acid 1.2 Calcium Magnesium Total Bilirubin AST ALT Alkaline Phosphatase Total Creatine Kinase Troponin I B-Natriuretic Peptide Total Protein Albumin 04/13/18 04/13/18 04/14/18 11:45 12:41 04:07 WBC 4.2 RBC 4.91 Hgb 11.5 L Hct 36.1 L MCV 73.5 L MCH 23.3 L MCHC 31.7 L RDW 15.8 Plt Count 275 MPV 8.6 Neut % (Auto) 79.5 H Lymph % (Auto) 18.6 Hancock % (Auto) 1.6 Eos % (Auto) 0.0 Baso % (Auto) 0.3 Neut # (Auto) 3.4 Lymph # (Auto) 0.8 L Hancock # (Auto) 0.1 Eos # (Auto) 0.0 Baso # (Auto) 0.0 WBC Differential . Differential Comment Auto diff final PT INR APTT Sodium 132 L Potassium 4.1 Chloride 97 L Carbon Dioxide 27.3 Anion Gap 8 BUN 13 Creatinine 1.06 Estimated GFR 87 L Random Glucose 104 Lactic Acid Calcium 8.0 L Magnesium 1.9 Total Bilirubin 0.4 AST 47 H ALT 11 L Alkaline Phosphatase 49 Total Creatine Kinase 70 Troponin I Less than 0.02 L B-Natriuretic Peptide 38 Total Protein 7.8 Albumin 2.1 L 04/14/18 04:07 WBC RBC Hgb Hct MCV MCH MCHC RDW Plt Count MPV Neut % (Auto) Lymph % (Auto) Hancock % (Auto) Eos % (Auto) Baso % (Auto) Neut # (Auto) Lymph # (Auto) Hancock # (Auto) Eos # (Auto) Baso # (Auto) WBC Differential Differential Comment PT INR APTT Sodium 133 L Potassium 4.4 Chloride 97 L Carbon Dioxide 26.0 Anion Gap 10 BUN 15 Creatinine 1.09 Estimated GFR 85 L Random Glucose 227 H D Lactic Acid Calcium 8.3 L Magnesium Total Bilirubin AST ALT Alkaline Phosphatase Total Creatine Kinase Troponin I B-Natriuretic Peptide Total Protein Albumin Microbiology 04/14/18 05:23 Stool Stool Occult Blood (DANILO) - Final Hemoccult negative 04/13/18 18:46 Nasal Wash Influenza Types A,B Antigen - Final Negative for FLU A and B antigen Infection due to influenza A or B cannot be ruled out since the antigen present in the sample may be below the detection limit of the test. - Imaging Impressions Chest X-Ray 04/13/18 11:42 CONCLUSION: 1. Mild diffuse interstitial edema and patchy airspace disease in the left mid to lower lung zones. Differential considerations include pneumonia versus atypical pulmonary edema versus atypical pneumonia in the appropriate clinical setting. Chest CTA 04/13/18 14:02 CONCLUSION: 1. No CT evidence for pulmonary artery embolism. 2. Marked interval progression/development of interstitial lung disease combined with progressive paraseptal and centrilobular emphysema and bronchiectasis. Although nonspecific, differential considerations include significant interval occupational or inhalational exposure versus drug reaction. 3. Diffuse groundglass opacities in the lower lobes, left greater than right, with focal airspace consolidation in the left lower lobe may reflect more acute superimposed airspace disease. Assessment and Plan - Assessment (1) Pneumonia Code(s): J18.9 - Pneumonia, unspecified organism Status: Acute (2) Hypoxia Code(s): R09.02 - Hypoxemia Status: Acute - Plan Mr. Landry is a 58 year old male with history of spontaneous pneumothorax x2 and chronic tobacco abuse presenting with productive cough and shortness of breath x 2 weeks. CXR reveals patchy densities in left mid-to- lower lung valera with associated crackles in that region. He will be admitted for pneumonia and hypoxia. 1. Pneumonia Saturating 84% on room air on arrival. Currently 93% on 2L. Will try to wean off O2. CXR showing patchy densities in the left middle and lower lung valera CTA negative for PE but there is marketed interstitial lung disease with progressive emphysema bronchiectasis as well as diffuse groundglass opacities in the lower lobes with focal airspace consolidation left lower lobe consistent with PNA seen on CXR DuoNeb Q4 Rocephin and azithromycin. Will consider Levaquin upon discharge. Supplemental O2 PRN Check sputum cultures, urine Legionella pneumococcal antigens, and influenza antigens 2. Anemia Hemoglobin 14 back in 2016 Patient denies any obvious bleeding or melena He does have an unintentional weight loss that he reports has been over the past month and a half CT chest negative for any signs of malignancy Will check a Hemoccult but he will at the very least need a colonoscopy as an outpatient. Has never had one and he is 58. -Will refer patient to [facility] for primary care and possibly preventative procedure referral to GI. 3. Tobacco abuse Counseled on cessation Nicotine patch 4. Alcohol abuse Mildly elevated AST 47. CIWA protocol 5. Cocaine abuse Counseled on cessation DVT prophylaxis: Lovenox Discharge Plan: Possible discharge today or in the AM on 04/15/2018. (1) Pneumonia Qualifiers: Pneumonia type: due to unspecified organism Laterality: left Lung location: lower lobe of lung Qualified Code(s): J18.1 - Lobar pneumonia, unspecified organism
[2018-04-14] MEDS: guaiFENesin 600 MG ER Tablet PO SCH (10:10)
[2018-04-14] MEDS: Senna/Docusate Sodium 8.6/50 MG Tablet PO SCH (10:10)
[2018-04-14 12:38] VITALS: BP 124/75; PULSE 84; TEMP 97.9; O2SAT 99
--- NOTE | 2018-04-14 16:11 | ECG ---
Date Performed: 04/13/2018 Time Performed: 11:43:51 PTAGE: 58 years EKG: Sinus rhythm NORMAL ECG Since PREVIOUS TRACING , no significant change noted PREVIOUS TRACIN02/23/2016 18.54.00 DOCTOR: Jeff Escobar Interpretating Date/Time 04/14/2018 16:10:14
== END 2018-04-14 17:52 | disposition home or self-care (01) ==
LOC: NEPC 11:28 → NEDA 17:27 → N07 18:58
PROVIDERS: ADMIT Hospitalist; ATTEND Hospitalist

== ENCOUNTER 2018-04-18 08:26 | Inpatient (IN) ==
[2018-04-18 09:06] LABS: Baso % (Auto) 0.1 % (0.0-2.0); Hematocrit 39.4 % (39.0-51.0); Hemoglobin 12.8 gm/dL (13.0-17.0); Lymph # (Auto) 1.1 th/mm3 (1.0-4.8); Lymph % (Auto) 9.4 % (9.0-44.0); Mean Corpuscular HGB Conc 32.5 % (32.0-36.0); Mean Corpuscular Hemoglobin 23.2 pg (27.0-34.0); Mean Corpuscular Volume 71.3 fL (80.0-100.0); Mean Platelet Volume 7.7 fL (7.0-11.0); Mono # (Auto) 0.5 th/mm3 (0.0-0.9); Mono % (Auto) 4.5 % (0.0-8.0); Neut # (Auto) 9.6 th/mm3 (1.8-7.7); Platelet Count 331 th/mm3 (150-450); Red Blood Count 5.52 mil/mm3 (4.50-5.90); White Blood Count 11.2 th/mm3 (4.0-11.0)
[2018-04-18 09:27] LABS: Albumin 2.3 g/dL (3.4-5.0); Anion Gap 9 meq/L (5-15); Aspartate Aminotransferase 28 U/L (15-37); Blood Urea Nitrogen 16 mg/dL (7-18); Calcium 8.6 mg/dL (8.5-10.1); Carbon Dioxide 24.5 meq/L (21.0-32.0); Chloride 97 meq/L (98-107); Glomerular Filtration Rate 87 mL/min (>89); Glucose,Random 92 mg/dL (74-106); Sodium 130 meq/L (136-145)
[2018-04-18 09:31] LABS: Alanine Aminotransferase 18 U/L (12-78); Alkaline Phosphatase 50 U/L (45-117); Total Protein 8.3 g/dL (6.4-8.2)
--- NOTE | 2018-04-18 09:34 | ED ---
HPI General Chief complaint: Respiratory Symptoms Stated complaint: Chest Pain/SOB Complaint Time Seen by Provider: 04/18/18 08:43 History of Present Illness HPI narrative: This is a 58-year-old male recently released from this facility for hypoxic respiratory failure and pneumonia, has a history of cigarette smoking which is significant as well as crack cocaine smoking. Adamantly denies any IV drug abuse. Patient was admitted for a few day stay, was able to be titrated off of his oxygen and had 92% on room air on the patient accompanied by girlfriend and both of them agree that he was improving until earlier this morning when he became fairly short of breath. No fevers cough without sputum production, he also endorses a 20-25 pound weight loss over the past 30 days. He states is not been eating or drinking very much either and endorses a decreased appetite. Patient states his been tested for HIV and hepatitis in the past and has been negative. No history of tuberculosis exposure. Does endorse night sweats. On arrival the patient saturations are 86 %, duration is this morning, context as above, associated signs symptoms as above. Related Data Previous Rx's Medication Instructions Recorded levofloxacin [Levaquin] 750 mg PO DAILY #5 tab 04/14/18 prednisone 20 mg PO BID #10 tab 04/14/18 Allergies Allergy/AdvReac Type Severity Reaction Status Date / Time No Known Allergies Allergy Verified 04/18/18 08:47 Review of Systems ROS: all other systems reviewed are negative PMFSH Family History Family History Mother Diabetes Social History Social History Substance History: Active Abuse Second Hand Smoke Exposure: Yes Smoking Status: Current every day smoker Tobacco Type: Cigarettes How Often Do You Have a Drink Containing Alcohol: 4 or more times a week Recent Travel in [facility] within the Last 8 Weeks: No Recent Out of Country Travel within the Last 8 Weeks: No Immunization History Tetanus Immunization: >5 Years Exam Narrative Exam Narrative: GENERAL: Well-developed under nourished male, temporal wasting, tripod position with shortness of breath. SKIN: Focused skin assessment warm/dry. No rash no wound seen on his person. HEAD: Atraumatic. Normocephalic. EYES: Pupils equal and round. No scleral icterus. No injection or drainage. ENT: No nasal bleeding or discharge. Mucous membranes pink and moist. NECK: Trachea midline. No JVD. CARDIOVASCULAR: Tachycardic with regular rhythm, occasional PVCs.. No murmur appreciated. RESPIRATORY: Lungs actually clear, no wheezes rales or rhonchi, there is good air entry, the patient does have accessory muscle use intercostal retractions supraclavicular retractions. Tachypneic. GASTROINTESTINAL: Abdomen soft, non-tender, nondistended. Hepatic and splenic margins not palpable. MUSCULOSKELETAL: No obvious deformities. No clubbing. No cyanosis. No edema. NEUROLOGICAL: Awake and alert. No obvious cranial nerve deficits. Motor grossly within normal limits. Normal speech. PSYCHIATRIC: Appropriate mood and affect; insight and judgment normal. Course Initial Documented Vital Signs Temperature 99.3 F 04/18/18 08:35 Pulse Rate 105 H 04/18/18 08:35 Respiratory Rate 20 04/18/18 08:35 Blood Pressure 122/78 04/18/18 08:35 Pulse Oximetry 90 L 04/18/18 08:35 Last Documented Vital Signs Temperature 99.3 F 04/18/18 08:35 Pulse Rate 82 04/18/18 10:14 Respiratory Rate 25 H 04/18/18 10:14 Blood Pressure 134/90 04/18/18 10:14 Pulse Oximetry 98 04/18/18 10:59 Critical Care Time Critical Care Time: Yes Total Critical Care Time: 35 Attestation: Aggregate critical care time was 35 minutes. Time to perform other separately billable procedures was not included in the critical care time. My time did not include minutes spent treating any other patients simultaneously or on activities that did not directly contribute to the patient's treatment. The services I provided to this patient were to treat and/or prevent clinically significant deterioration that could result in: , disability, organ failure I provided critical care services requiring my management, as noted below: Chart data review, documentation time, medication orders and management, vital sign assessments/reviewing monitor data, ordering and reviewing lab tests, ordering and interpreting/reviewing x-rays and diagnostic studies, care of the patient and discussion of the patient with the admitting physicians. Medical Decision Making MDM Narrative Medical decision making narrative: Patient room to the emergency department, placed on nasal cannula oxygen and is saturating 95% on 3 L. His tachycardia is resolving with the oxygenation. This may just be a case of very bad and advancing pulmonary fibrosis, I think tuberculosis and HIV are also in the differential diagnosis. The patient was placed in isolation, I have ordered the appropriate testing, pro-calcitonin ordered as well. Review of his last records a CAT scan did show a generalized fibrotic pattern with some groundglass opacities as well. On his last admission influenza testing, strep pneumonia was negative, Legionella was negative. Blood cultures negative for 4 days. Patient will obviously require admission for continuing hypoxic respiratory failure. patient rapid HIV test went to [facility] blot. Patient was informed of preliminary findings in absence of family members/friends. The results of the test was also discussed with Dr. Cortez we discussed the possibility of adding Bactrim for possible PCP pneumonia. Medical Screen Exam Complete: Yes Emergency Medical Condition: Yes Lab Data Result diagrams: 04/18/18 08:55 04/18/18 08:55 Lab Results 04/18/18 04/18/18 04/18/18 Range/Units 08:55 08:55 08:55 WBC 11.2 H (4.0-11.0) th/mm3 RBC 5.52 (4.50-5.90) mil/mm3 Hgb 12.8 L (13.0-17.0) gm/dL Hct 39.4 (39.0-51.0) % MCV 71.3 L (80.0-100.0) fL MCH 23.2 L (27.0-34.0) pg MCHC 32.5 (32.0-36.0) % RDW 15.0 (11.6-17.2) % Plt Count 331 (150-450) th/mm3 MPV 7.7 (7.0-11.0) fL Neut % (Auto) 86.0 H (16.0-70.0) % Lymph % (Auto) 9.4 (9.0-44.0) % [place] % (Auto) 4.5 (0.0-8.0) % Eos % (Auto) 0.0 (0.0-4.0) % Baso % (Auto) 0.1 (0.0-2.0) % Neut # (Auto) 9.6 H (1.8-7.7) th/mm3 Lymph # (Auto) 1.1 (1.0-4.8) th/mm3 [place] # (Auto) 0.5 (0.0-0.9) th/mm3 Eos # (Auto) 0.0 (0.0-0.4) th/mm3 Baso # (Auto) 0.0 (0.0-0.2) th/mm3 WBC Differential . Differential Comment Auto diff final Sodium 130 L (136-145) meq/L Potassium 4.0 (3.5-5.1) meq/L Chloride 97 L (98-107) meq/L Carbon Dioxide 24.5 (21.0-32.0) meq/L Anion Gap 9 (5-15) meq/L BUN 16 (7-18) mg/dL Creatinine 1.06 (0.60-1.30) mg/dL Estimated GFR 87 L (>89) mL/min POC Glucose (68-110) mg/dl Random Glucose 92 (74-106) mg/dL Lactic Acid 1.3 (0.4-2.0) mmol/L Calcium 8.6 (8.5-10.1) mg/dL Total Bilirubin 0.6 (0.2-1.0) mg/dL AST 28 (15-37) U/L ALT 18 (12-78) U/L Alkaline Phosphatase 50 (45-117) U/L Total Protein 8.3 H (6.4-8.2) g/dL Albumin 2.3 L (3.4-5.0) g/dL Procalcitonin (0.00-0.08) ng/mL TSH (0.358-3.740) uIU/mL HIV 1&2 Ab/P24 Ag 4thGn (Nonreactive) 04/18/18 04/18/18 04/18/18 Range/Units 08:57 09:42 09:42 WBC (4.0-11.0) th/mm3 RBC (4.50-5.90) mil/mm3 Hgb (13.0-17.0) gm/dL Hct (39.0-51.0) % MCV (80.0-100.0) fL MCH (27.0-34.0) pg MCHC (32.0-36.0) % RDW (11.6-17.2) % Plt Count (150-450) th/mm3 MPV (7.0-11.0) fL Neut % (Auto) (16.0-70.0) % Lymph % (Auto) (9.0-44.0) % [place] % (Auto) (0.0-8.0) % Eos % (Auto) (0.0-4.0) % Baso % (Auto) (0.0-2.0) % Neut # (Auto) (1.8-7.7) th/mm3 Lymph # (Auto) (1.0-4.8) th/mm3 [place] # (Auto) (0.0-0.9) th/mm3 Eos # (Auto) (0.0-0.4) th/mm3 Baso # (Auto) (0.0-0.2) th/mm3 WBC Differential Differential Comment Sodium (136-145) meq/L Potassium (3.5-5.1) meq/L Chloride (98-107) meq/L Carbon Dioxide (21.0-32.0) meq/L Anion Gap (5-15) meq/L BUN (7-18) mg/dL Creatinine (0.60-1.30) mg/dL Estimated GFR (>89) mL/min POC Glucose 107 (68-110) mg/dl Random Glucose (74-106) mg/dL Lactic Acid (0.4-2.0) mmol/L Calcium (8.5-10.1) mg/dL Total Bilirubin (0.2-1.0) mg/dL AST (15-37) U/L ALT (12-78) U/L Alkaline Phosphatase (45-117) U/L Total Protein (6.4-8.2) g/dL Albumin (3.4-5.0) g/dL Procalcitonin (0.00-0.08) ng/mL TSH 1.190 (0.358-3.740) uIU/mL HIV 1&2 Ab/P24 Ag 4thGn Reflex H (Nonreactive) 04/18/18 Range/Units 09:42 WBC (4.0-11.0) th/mm3 RBC (4.50-5.90) mil/mm3 Hgb (13.0-17.0) gm/dL Hct (39.0-51.0) % MCV (80.0-100.0) fL MCH (27.0-34.0) pg MCHC (32.0-36.0) % RDW (11.6-17.2) % Plt Count (150-450) th/mm3 MPV (7.0-11.0) fL Neut % (Auto) (16.0-70.0) % Lymph % (Auto) (9.0-44.0) % [place] % (Auto) (0.0-8.0) % Eos % (Auto) (0.0-4.0) % Baso % (Auto) (0.0-2.0) % Neut # (Auto) (1.8-7.7) th/mm3 Lymph # (Auto) (1.0-4.8) th/mm3 [place] # (Auto) (0.0-0.9) th/mm3 Eos # (Auto) (0.0-0.4) th/mm3 Baso # (Auto) (0.0-0.2) th/mm3 WBC Differential Differential Comment Sodium (136-145) meq/L Potassium (3.5-5.1) meq/L Chloride (98-107) meq/L Carbon Dioxide (21.0-32.0) meq/L Anion Gap (5-15) meq/L BUN (7-18) mg/dL Creatinine (0.60-1.30) mg/dL Estimated GFR (>89) mL/min POC Glucose (68-110) mg/dl Random Glucose (74-106) mg/dL Lactic Acid (0.4-2.0) mmol/L Calcium (8.5-10.1) mg/dL Total Bilirubin (0.2-1.0) mg/dL AST (15-37) U/L ALT (12-78) U/L Alkaline Phosphatase (45-117) U/L Total Protein (6.4-8.2) g/dL Albumin (3.4-5.0) g/dL Procalcitonin 0.14 H (0.00-0.08) ng/mL TSH (0.358-3.740) uIU/mL HIV 1&2 Ab/P24 Ag 4thGn (Nonreactive) Imaging Data Radiologist's impression: Chest X-Ray 04/18/18 08:48 CONCLUSION: 1. Persistent diffuse interstitial prominence with improved patchy bilateral groundglass opacities. Although improved in comparison to most recent exam, overall abnormalities are new since more remote 2016 exam. Differential considerations again include interval drug reaction or inhalational exposure with improving superimposed airspace disease/infection. Discharge Plan Discharge Disposition Patient Disposition: 30 Still Patient Discharge Condition Condition: Fair Discharge Details Diagnosis: Acute respiratory failure with hypoxia, Pneumonia, Abnormal weight loss, Sepsis , Failure of outpatient treatment Physicians Team ED Provider: Fernando Pastrana Primary Care Provider: Primary Care Kanchan Bojorquez Attending Provider: Malik Cortez Discharge Interventions Interventions: ED Discharge Assessment Last Done: 04/18/18 13:42 Status ED Status: Left Department Discharge Information Discharge Date/Time: 04/18/18 13:42
[2018-04-18] MEDS ORDERED: Vancomycin Inj 1 GM/200 ML PIGGYBACK IV.SIG ONE (09:37)
[2018-04-18] MEDS ORDERED: Piperacil/Tazo 4.5 GM Premix 4.5 GM/100 ML BAG IV.SIG ONE (09:37)
--- NOTE | 2018-04-18 09:43 | XR ---
EXAM DATE: 04/18/2018 8:48 AM EDT AGE/SEX: 58 years / Male INDICATIONS: Fever. CLINICAL DATA: This is the patient's initial encounter. Patient reports that signs and symptoms have been present for 1 day and indicates a pain score of 0/10. MEDICAL/SURGICAL HISTORY: None. None. COMPARISON: [facility] [place]ST 1V SINGLE AP, 04/13/2018. . FINDINGS: Persistent diffuse interstitial prominence with improved diffuse patchy groundglass airspace opacitie s. Cardiomediastinal contours are within normal limits. Remainder of exam is unchanged. CONCLUSION: 1. Persistent diffuse interstitial prominence with improved patchy bilateral groundglass opacities. Although improved in comparison to most recent exam, overall abnormalities are new since more remote 2016 exam. Differential considerations again include interval drug reaction or inhalational exposure with improving superimposed airspace disease/infection. Electronically signed by: Vic Woody MD 04/18/2018 9:41 AM EDT
[2018-04-18] MEDS ORDERED: Vancomycin Inj 1,000 MG in Sodium Chlor 0.9% Inj 250 ML IV.SIG ONE (10:00)
[2018-04-18] MEDS ORDERED: Bisacodyl 10 MG Supp RECTAL PRN (10:13)
--- NOTE | 2018-04-18 14:42 | P.HP ---
History of Present Illness Service: Mr. Landry is a 58-year-old -[place] male with a history of substance abuse, tobacco abuse who presented to the emergency department due to dyspnea, chest pain associated with breathing. Patient denies any cough, fever, sputum production. He reports 20-25 pound weight loss over the last 1 month. Patient denies any radiation of his chest pain, no sweating or nausea vomiting. No abdominal pain. No changes in bowel or bladder habits. On arrival, his saturation was low documented saturation 90% on arrival. However with supplemental oxygen his saturation went up to 96-98%. 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, negative stress test 2016, prior hospitalizations for PNA Surgical hx: hernia repair Family hx: both parents , mother had DM, father was murdered Social hx: lives with girlfriend, drinks about four beers daily, smokes 1/2PPD x 40 years, smokes crack cocaine Primary Care Physician: No Primary Care Physician Review of Systems All other systems reviewed negative except as stated in HPI PMFSH - History History Provided By: Patient - Medical History Medical History: Medical History (Last Reviewed 04/18/18 @ 08:53 by Billie Rollins) Spontaneous pneumothorax Tobacco abuse - Surgical History Surgical History: Surgical History (Last Reviewed 04/18/18 @ 08:53 by Billie Rollins) Hx of hernia repair - Family History Family History: Family History (Last Updated 04/13/18 @ 18:23 by Paris Morocho MD) Mother Diabetes - Tobacco History Second Hand Smoke Exposure: Yes Tobacco Use In Past 30 Days: Yes (7 cigarettes a day) Smoking Status: Current every day smoker Tobacco Type: Cigarettes - Alcohol History How Often Do You Have a Drink Containing Alcohol: 4 or more times a week - Substance Use History Substance History: Active Abuse - Substance Use Type Crack/Cocaine Status: Active Route Used: Inhalation Frequency: half a gram, twice a week Reason for Use: Feels Good - Travel History Recent Travel in the [place] Within the Last 8 Weeks: No Recent Travel Out of the Country Within the Last 8 Weeks: No - Immunization History Tetanus Immunization: >5 Years Medications and Allergies Active Medications: Active Medications Al Hydroxide/Mg Hydroxide (Milk Of Magnesia Liq) 30 ml PO Q12H PRN PRN Reason: Mild Constipation Bisacodyl (Dulcolax Supp) 10 mg RECTAL DAILY PRN PRN Reason: SEVERE CONSITIPATION Lactulose (Lactulose Liq) 30 ml PO DAILY PRN PRN Reason: SEVERE CONSITIPATION Senna/Docusate Sodium (Dona-Colace) 1 tab PO BID STEVIE Sennosides (Senokot) 17.2 mg PO Q12H PRN PRN Reason: Moderate Constipation Allergies Allergy/AdvReac Type Severity Reaction Status Date / Time No Known Allergies Allergy Verified 04/18/18 08:47 Exam Vital signs: Vital Signs 04/18/18 08:35 04/18/18 08:48 04/18/18 10:14 Temperature 99.3 F Pulse Rate 105 H 87 82 Respiratory Rate 20 25 H Blood Pressure 122/78 134/90 Pulse Oximetry 90 L 96 96 04/18/18 10:59 Temperature Pulse Rate Respiratory Rate Blood Pressure Pulse Oximetry 98 Intake & Output 04/17/18 04/18/18 04/18/18 18:59 06:59 18:59 Intake Total 350 / 350 Balance 350 / 350 Weight 59.421 kg Intake: IV 350 / 350 Zosyn 4.5 GM Premix 4.5 gm In 100 / 100 100 ml @ 200 mls/hr IV.SIG ONCE ONE Rx#:[id number] Vancomycin Inj 1,000 MG In NS 250 / 250 Inj 250 ML @ 250 mls/hr IV.SIG ONCE ONE Rx#:[id number] Other: Weight On Admission 56.5 kg Narrative: GENERAL: Alert, NAD. Cachectic appearance. SKIN: No rashes, ecchymoses or lesions. Warm and dry. HEAD: Atraumatic. Normocephalic. No temporal or scalp tenderness. EYES: Pupils equal round and reactive. No injection or drainage. ENT: Nose without bleeding, purulent drainage or septal hematoma. Airway patent. NECK: Trachea midline. No lymphadenopathy. Supple, nontender, no meningeal signs. CARDIOVASCULAR: Regular rate and rhythm without murmurs, gallops, or rubs. No JVD. RESPIRATORY: Clear to auscultation. Breath sounds equal bilaterally. No wheezes , rales, or rhonchi. GASTROINTESTINAL: Abdomen soft, non-tender, nondistended. No guarding. MUSCULOSKELETAL: Extremities without clubbing, cyanosis, or edema. NEUROLOGICAL: Awake and alert. Cranial nerves II through XII intact. No focal neurological deficits. Normal speech. Results - Labs CBC & Chem 7: 04/18/18 08:55 04/18/18 08:55 Labs: Laboratory Results - last 24 hr 04/18/18 04/18/18 04/18/18 08:55 08:55 08:55 WBC 11.2 H RBC 5.52 Hgb 12.8 L Hct 39.4 MCV 71.3 L MCH 23.2 L MCHC 32.5 RDW 15.0 Plt Count 331 MPV 7.7 Neut % (Auto) 86.0 H Lymph % (Auto) 9.4 [place] % (Auto) 4.5 Eos % (Auto) 0.0 Baso % (Auto) 0.1 Neut # (Auto) 9.6 H Lymph # (Auto) 1.1 [place] # (Auto) 0.5 Eos # (Auto) 0.0 Baso # (Auto) 0.0 WBC Differential . Differential Comment Auto diff final Sodium 130 L Potassium 4.0 Chloride 97 L Carbon Dioxide 24.5 Anion Gap 9 BUN 16 Creatinine 1.06 Estimated GFR 87 L POC Glucose Random Glucose 92 Lactic Acid 1.3 Calcium 8.6 Total Bilirubin 0.6 AST 28 ALT 18 Alkaline Phosphatase 50 Total Protein 8.3 H Albumin 2.3 L Procalcitonin TSH HIV 1&2 Ab/P24 Ag 4thGn 04/18/18 04/18/18 04/18/18 08:57 09:42 09:42 WBC RBC Hgb Hct MCV MCH MCHC RDW Plt Count MPV Neut % (Auto) Lymph % (Auto) [place] % (Auto) Eos % (Auto) Baso % (Auto) Neut # (Auto) Lymph # (Auto) [place] # (Auto) Eos # (Auto) Baso # (Auto) WBC Differential Differential Comment Sodium Potassium Chloride Carbon Dioxide Anion Gap BUN Creatinine Estimated GFR POC Glucose 107 Random Glucose Lactic Acid Calcium Total Bilirubin AST ALT Alkaline Phosphatase Total Protein Albumin Procalcitonin TSH 1.190 HIV 1&2 Ab/P24 Ag 4thGn Reflex H 04/18/18 09:42 WBC RBC Hgb Hct MCV MCH MCHC RDW Plt Count MPV Neut % (Auto) Lymph % (Auto) [place] % (Auto) Eos % (Auto) Baso % (Auto) Neut # (Auto) Lymph # (Auto) [place] # (Auto) Eos # (Auto) Baso # (Auto) WBC Differential Differential Comment Sodium Potassium Chloride Carbon Dioxide Anion Gap BUN Creatinine Estimated GFR POC Glucose Random Glucose Lactic Acid Calcium Total Bilirubin AST ALT Alkaline Phosphatase Total Protein Albumin Procalcitonin 0.14 H TSH HIV 1&2 Ab/P24 Ag 4thGn - Imaging Impressions Chest X-Ray 04/18/18 08:48 CONCLUSION: 1. Persistent diffuse interstitial prominence with improved patchy bilateral groundglass opacities. Although improved in comparison to most recent exam, overall abnormalities are new since more remote 2016 exam. Differential considerations again include interval drug reaction or inhalational exposure with improving superimposed airspace disease/infection. Caprini VTE Risk Assessment Caprini VTE Risk Assessment: Moderate/High Risk (score >= 2) Caprini Risk Assessment Model: Point Value = 1 Point Value = 2 Point Value = 3 Point Value = 5 Age 41-60 Minor surgery BMI > 25 kg/m2 Swollen legs Varicose veins or History of unexplained or recurrent spontaneous Oral contraceptives or hormone replacement Sepsis (< 1 month) Serious lung disease, including pneumonia (< 1 month) Abnormal pulmonary function Acute myocardial infarction Congestive heart failure (< 1 month) History of inflammatory bowel disease Medical patient at bed rest Age 61-74 Arthroscopic surgery Major open surgery (> 45 min) Laparoscopic surgery (> 45 min) Malignancy Confined to bed (> 72 hours) Immobilizing plaster cast Central venous access Age >= 75 History of VTE Family history of VTE Factor V Leiden Prothrombin [id number] Lupus anticoagulant Anticardiolipin antibodies Elevated serum homocysteine Heparin-induced thrombocytopenia Other congenital or acquired thrombophilia Stroke (< 1 month) Elective arthroplasty Hip, pelvis, or leg fracture Acute spinal cord injury (< 1 month) Prophylaxis Regimen: Total Risk Factor Score Risk Level Prophylaxis Regimen 0-1 Low Early ambulation 2 Moderate Order ONE of the following: *Sequential Compression Device (SCD) *Heparin 5000 units SQ BID 3-4 Higher Order ONE of the following medications: *Heparin 5000 units SQ TID *Enoxaparin/Lovenox 40 mg SQ daily (WT < 150 kg, CrCl > 30 mL/min) *Enoxaparin/Lovenox 30 mg SQ daily (WT < 150 kg, CrCl > 10-29 mL/min) *Enoxaparin/Lovenox 30 mg SQ BID (WT < 150 kg, CrCl > 30 mL/min) AND/OR *Sequential Compression Device (SCD) 5 or more Highest Order ONE of the following medications: *Heparin 5000 units SQ TID (Preferred with Epidurals) *Enoxaparin/Lovenox 40 mg SQ daily (WT < 150 kg, CrCl > 30 mL/min) *Enoxaparin/Lovenox 30 mg SQ daily (WT < 150 kg, CrCl > 10-29 mL/min) *Enoxaparin/Lovenox 30 mg SQ BID (WT < 150 kg, CrCl > 30 mL/min) AND *Sequential Compression Device (SCD) Assessment and Plan - Plan Mr. Landry is a 58-year-old -[place] male with a history of substance abuse including alcohol and tobacco who presents to the emergency department due to hypoxia, pleuritic chest pain. Patient denies any cough, fever, chills. He also reports 20-25 pound weight loss over last 1 month. Possible PCP pneumonia Probable HIV -HIV 1 and 2 antibody/P24 4th generation is positive. Confirmation may be required. -Patient's weight loss and cachectic appearance are concerning for HIV -For now, will start empiric treatment with Bactrim DS 2 tablets 3 times a day. (15-20 mg/kg/day of TMP) -TB QuantiFERON gold tests are pending. -Continue supplemental oxygen to keep oxygen saturation above 90%. -Procalcitonin is slightly elevated to 0.14. WBC 11.2 Tobacco and Alcohol abuse Illicit drug abuse (Crack/Cocaine) -Patient counselled. Hyponatremia - Na 130. It is possible this is also related to HIV related SIADH. Full code. Lovenox.
--- NOTE | 2018-04-18 20:00 | ECG ---
Date Performed: 04/18/2018 Time Performed: 08:49:26 PTAGE: 58 years EKG: Sinus rhythm WITH OCCASIONAL SUPRAVENTRICULAR PREMATURE COMPLEXES BORDERLINE ECG PREVIOUS TRACING : 04/13/2018 11.43 DOCTOR: Juan Pablo Agudelo Interpretating Date/Time 04/18/2018 19:58:15
[2018-04-18] MEDS: Senna/Docusate Sodium 8.6/50 MG Tablet PO SCH (21:40)
[2018-04-18] MEDS: Enoxaparin Inj 40 MG/0.4 ML Syringe SQ SCH (21:40)
[2018-04-18] MEDS: Acetaminophen 325 MG Tablet PO PRN (22:37)
[2018-04-19] MEDS: Senna/Docusate Sodium 8.6/50 MG Tablet PO SCH ×2 (08:30→21:13)
[2018-04-19] MEDS: Acetaminophen 325 MG Tablet PO PRN ×3 (11:15→21:29)
[2018-04-19 17:21] LABS: HIV 1 Antibody Positive (Negative); HIV 2 Antibody Indeterminate (Negative)
--- NOTE | 2018-04-19 17:40 | P.PNIM ---
Subjective Interval history: Patient is laying down in bed. He appears weak. Today he is complaining of a cough, he does not have any other complaints. Physical Exam Vital signs: Vital Signs 04/18/18 20:00 04/19/18 00:00 04/19/18 03:25 Temperature 99.3 F 98.5 F Pulse Rate 85 82 78 Respiratory Rate 18 18 16 Blood Pressure 140/92 H 112/68 137/90 Pulse Oximetry 94 L 95 95 04/19/18 07:45 04/19/18 08:00 04/19/18 08:03 Temperature Pulse Rate 89 88 Respiratory Rate 16 16 22 Blood Pressure 118/79 Pulse Oximetry 98 98 04/19/18 12:00 04/19/18 12:59 04/19/18 16:00 Temperature 98.8 F 98.4 F Pulse Rate 84 82 80 Respiratory Rate 18 18 18 Blood Pressure 102/66 126/77 Pulse Oximetry 92 L 92 L Intake & Output 04/18/18 04/19/18 04/19/18 18:59 06:59 18:59 Intake Total 400 / 400 Balance 400 / 400 Weight 59.421 kg Intake: IV 350 / 350 Zosyn 4.5 GM Premix 4.5 gm In 100 / 100 100 ml @ 200 mls/hr IV.SIG ONCE ONE Rx#:[id number] Vancomycin Inj 1,000 MG In NS 250 / 250 Inj 250 ML @ 250 mls/hr IV.SIG ONCE ONE Rx#:[id number] Oral 50 / 50 Other: Weight On Admission 56.5 kg Narrative: General patient states that he feels weak. HEENT extraocular movements are intact, clear oropharyngeal mucosa, no JVD Cardiovascular S1-S2 audible, RRR, no murmurs rubs or gallops Respiratory coarseness bilaterally Abdomen soft, nontender, nondistended, normal bowel sounds Extremities no edema 2+ distal pulses in bilateral upper and lower extremities Neuro there are no neurological deficits. Results - Labs CBC & Chem 7: 04/18/18 08:55 04/18/18 08:55 Laboratory Results - last 24 hr 04/18/18 04/19/18 09:42 10:06 Lactate Dehydrogenase 386 H HIV-1 Antibody Positive HIV-2 Antibody Indeterminate HIV (1&2) Ag & Ab Refer Reactive Microbiology 04/18/18 08:50 Blood - Peripheral Aerobic Blood Culture - Preliminary No growth in 1 day 04/18/18 08:50 Blood - Peripheral Anaerobic Blood Culture - Preliminary No growth in 1 day 04/18/18 08:55 Blood - Peripheral Aerobic Blood Culture - Preliminary No growth in 1 day 04/18/18 08:55 Blood - Peripheral Anaerobic Blood Culture - Preliminary No growth in 1 day Assessment and Plan - Plan This patient is a 58-year-old -[place] Citizen male with a history of polysubstance abuse. Patient admits to using crack cocaine frequently and presented to our emergency department with complaints of dyspnea and chest pain. He complained of a mild cough however not having any fevers or any significant sputum production patient initially. He also reports a 25 pound weight loss over the past 1-2 months. In the emergency department he was found to be hypoxic and was then placed on supplemental oxygen. Chest x-ray showed bilateral interstitial infiltrates. 1. Acute hypoxic respiratory failure possibly secondary to PCP pneumonia 2. HIV positive screen 3. Polysubstance abuse Initially the patient was found to have a low oxygen saturation of around 90%. He was placed on supplemental oxygen. Chest imaging shows bilateral interstitial infiltrates Patient's HIV screen is positive and the chest imaging is concerning for PCP pneumonia. LDH is also elevated. An ABG was ordered today. Patient is currently on Bactrim. Infectious disease was consulted to evaluate the patient. I would appreciate their recommendations. Patient was counseled on his polysubstance abuse and he says he is seeking help. Sputum AFBs were also ordered. Sputum culture also ordered. Continue breathing treatments and supplemental oxygen. We will continue the current management and I will follow up with infectious disease recommendations. Heparin for DVT prophylaxis
[2018-04-19] MEDS ORDERED: Heparin - SQ 10,000 UNITS/ML Vial SQ SCH (21:00)
[2018-04-19] MEDS: Enoxaparin Inj 40 MG/0.4 ML Syringe SQ SCH (21:12)
[2018-04-20] MEDS: Acetaminophen 325 MG Tablet PO PRN ×3 (06:38→22:14)
[2018-04-20] MEDS: Senna/Docusate Sodium 8.6/50 MG Tablet PO SCH ×2 (11:21→22:15)
--- NOTE | 2018-04-20 13:00 | P.PNIM ---
Subjective Interval history: Patient says he feels okay on supplemental oxygen. He is laying down in bed watching football game. Physical Exam Vital signs: Vital Signs 04/19/18 12:59 04/19/18 16:00 04/19/18 19:37 Temperature 98.4 F Pulse Rate 82 80 78 Respiratory Rate 18 18 18 Blood Pressure 126/77 Pulse Oximetry 92 L 04/19/18 20:00 04/20/18 00:00 04/20/18 04:00 Temperature 98.8 F 98.4 F 98.5 F Pulse Rate 90 78 74 Respiratory Rate 20 20 20 Blood Pressure 154/90 H 131/81 132/80 Pulse Oximetry 95 95 97 04/20/18 08:30 04/20/18 12:37 Temperature Pulse Rate 81 79 Respiratory Rate 15 15 Blood Pressure Pulse Oximetry 95 Intake & Output 04/19/18 04/20/18 04/20/18 18:59 06:59 18:59 Other: Date of Last Bowel Movement 04/18/18 Narrative: General patient states that he feels anxious because he is curious about his diagnosis. HEENT extraocular movements are intact, clear oropharyngeal mucosa, no JVD Cardiovascular S1-S2 audible Respiratory coarseness bilaterally Abdomen soft, nontender, nondistended, normal bowel sounds Extremities no edema 2+ distal pulses in bilateral upper and lower extremities Neuro there are no neurological deficits. Results - Labs CBC & Chem 7: 04/18/18 08:55 04/18/18 08:55 Laboratory Results - last 24 hr 04/18/18 09:42 HIV-1 Antibody Positive HIV-2 Antibody Indeterminate HIV (1&2) Ag & Ab Refer Reactive Microbiology 04/18/18 08:50 Blood - Peripheral Aerobic Blood Culture - Preliminary No growth in 2 days 04/18/18 08:50 Blood - Peripheral Anaerobic Blood Culture - Preliminary No growth in 2 days 04/18/18 08:55 Blood - Peripheral Aerobic Blood Culture - Preliminary No growth in 2 days 04/18/18 08:55 Blood - Peripheral Anaerobic Blood Culture - Preliminary No growth in 2 days 04/19/18 17:48 Sputum - Expectorated Sputum Gram Stain - Final Assessment and Plan - Plan This patient is a 58-year-old -[place] male with a history of polysubstance abuse. Patient admits to using crack cocaine frequently and presented to our emergency department with complaints of dyspnea and chest pain. He complained of a mild cough however not having any fevers or any significant sputum production patient initially. He also reports a 25 pound weight loss over the past 1-2 months. In the emergency department he was found to be hypoxic and was then placed on supplemental oxygen. Chest x-ray showed bilateral interstitial infiltrates. 1. Acute hypoxic respiratory failure possibly secondary to PCP pneumonia 2. HIV positive screen 3. Polysubstance abuse Initially the patient was found to have a low oxygen saturation of around 90%. He was placed on supplemental oxygen. Currently he is on 3 L. Chest imaging shows bilateral interstitial infiltrates Labs show the patient is HIV positive. CD4 count pending LDH is also elevated. Infectious disease consulted. I will follow-up with the recommendations Patient is currently on Bactrim. Patient was counseled on his polysubstance abuse and he says he is seeking help. Sputum AFBs were also ordered. Sputum culture ordered and is pending Continue breathing treatments and supplemental oxygen. We will continue the current management and I will follow up with infectious disease recommendations. Lovenox for DVT prophylaxis
[2018-04-20 14:12] LABS: ABG Base Excess -0.7 mmol/L (-2-2); ABG PCO2 28 mmHg (38-42); ABG PO2 41 mmHg (61-120)
--- NOTE | 2018-04-20 15:36 | CT ---
EXAM DATE: 04/20/2018 3:03 PM EDT AGE/SEX: 58 years / Male INDICATIONS: Shortness of breath and chest pain. CLINICAL DATA: This is the patient's initial encounter. Patient reports that signs and symptoms have been present for 1 day and indicates a pain score of 5/10. MEDICAL/SURGICAL HISTORY: . respiratory failure . hernia repair RADIATION DOSE: 5.27 CTDI (mGy) COMPARISON: . TECHNIQUE: Multiple contiguous axial images were obtained through the chest without contrast. Image s were obtained in suspended respiration using multiple row detector helical technique. Using automa annamaria exposure control and adjustment of the mA and/or kV according to patient size, radiation dose was kept as low as reasonably achievable to obtain optimal diagnostic quality images. DICOM format imag e data is available electronically for review and comparison. FINDINGS: Lungs: The lungs are symmetrically aerated. Diffuse interstitial lung disease is again identified. S cattered emphysematous changes are also noted. There has been interval development of minimal nodular infiltrate within the right lower lobe posteriorly. Mediastinum: There has been interval development of a moderate-sized pericardial effusion. Coronary artery calcification are noted. Pleurae: No evidence of focal thickening or pleural effusion. Axillae: Unremarkable. Bony Structures: Unremarkable. Miscellaneous: The examination was extended to include the upper abdomen, and both adrenal glands ar e normal in size and configuration. CONCLUSION: 1. Interval development of moderate-sized pericardial effusion. 2. Persistent diffuse interstitial lung disease with scattered emphysematous changes. 3. Interval development of minimal nodular infiltrate within the right lower lobe posteriorly. 4. Coronary artery calcifications. Electronically signed by: Fernando Young MD 04/20/2018 3:35 PM EDT
--- NOTE | 2018-04-20 16:04 | P.CONID ---
History of Present Illness Service: Infectious disease Consult date: 04/20/18 Requesting Physician: Teagan Valdez Reason for Consult: Evaluate patient with HIV, possible PCP Primary Care Provider: No Primary Care Physician History of Present Illness: Patient seen and examined. Records reviewed. Patient is a 58-year-old male, presented to the hospital complaining of shortness of breath associated with some chest pain. Patient was recently hospitalized April 13 and at that time he presented with 2-week history of shortness of breath cough. His chest x-ray showed bilateral interstitial infiltrate and some patchy infiltrate on the left lung. He was afebrile at that time, and his white count was normal. Patient was treated as pneumonia, and he had improvement and he was discharged to complete a total of 7 days of antibiotic for pneumonia. He was given Levaquin. Patient came back this time complaining of shortness of breath again and this time he is also complaining of some chest discomfort when he breathes. He has some cough but not really able to bring up any phlegm. Has not had any fever. Patient also complaining of some difficulty swallowing and pain with swallowing. He has had some nausea but no magdaleno vomiting. He denies any urinary complaints. His chest x-ray this time has shown some improvement in the infiltrates on the left lung. HIV testing was done and HIV 1 came back positive. His LDH is elevated. His white count was a little bit up and it is 11,000. CT of the chest did not show any significant change compared to his prior CT but except for the presence of pericardial effusion. 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 He has had problem with spontaneous pneumothorax, and actually in 2011 he underwent VATS procedure with right upper lobe bullectomy, and partial pleurectomy. 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 Patient denies any sexual contact with known HIV patients. He denies any history of STD. He has never been in snf. He denies IV drug use but does smoke crack cocaine. Patient has been tested HIV negative back in 2006. He has no prior history of exposure to tuberculosis or having a diagnosis of tuberculosis. Patient also has had significant weight loss recently. Infectious disease consultation has been requested to evaluate the patient with no HIV positive disease and possible PCP. Past Medical History Copd with bullous emphysema Spontaneous PTX Past Surgical History Hernia repair VATS with RUL bullectomy, partial pleurectomy 2011 CT placement for PTX bronchoscopy Social History Long time smoke Drinks beer Smokes crack cocaine Denies IVDU never been incarcerated Multiple sexual partner No Hx exposure to HIV No Hx esporusre to PTB No STD Review of Systems Constitutional: Reports fatigue, Reports lack of energy, Reports weight loss, Denies chills, Denies fever(s), Denies headache(s), Denies night sweats Eyes: Denies discharge, Denies dry eyes Ears, Nose, Mouth, and Throat: Reports difficulty swallowing, Reports pain with swallowing, Denies ear pain, Denies nasal discharge, Denies sore throat Cardiovascular: Reports chest pain, Reports shortness of breath Respiratory: Reports chest congestion, Reports cough, Reports shortness of breath Gastrointestinal: Reports difficulty swallowing, Reports nausea, Reports pain with swallowing, Denies abdominal pain, Denies loose stools, Denies vomiting Genitourinary: Denies difficulty urinating, Denies painful urination Musculoskeletal: Denies joint pain, Denies joint swelling Skin/Breast: Denies rash, Denies wounds PMFSH - History History Provided By: Patient - Medical History Medical History: Medical History (Last Reviewed 04/18/18 @ 08:53 by Billie Rollins) Spontaneous pneumothorax Tobacco abuse - Surgical History Surgical History: Surgical History (Last Reviewed 04/18/18 @ 08:53 by Billie Rollins) Hx of hernia repair - Family History Family History: Family History (Last Updated 04/13/18 @ 18:23 by Paris Morocho MD) Mother Diabetes - Tobacco History Second Hand Smoke Exposure: Yes Tobacco Use In Past 30 Days: Yes (7 cigarettes a day) Smoking Status: Current every day smoker Tobacco Type: Cigarettes - Alcohol History How Often Do You Have a Drink Containing Alcohol: 4 or more times a week - Substance Use History Substance History: Active Abuse - Substance Use Type Crack/Cocaine Status: Active Route Used: Inhalation Frequency: half a gram, twice a week Reason for Use: Feels Good - Travel History Recent Travel in the [facility] Within the Last 8 Weeks: No Recent Travel Out of the Country Within the Last 8 Weeks: No - Immunization History Tetanus Immunization: >5 Years Medications and Allergies Active Medications: Active Medications Acetaminophen (Tylenol) 650 mg PO Q4H PRN PRN Reason: Headache, fever, pain 1-4 Last Admin: 04/20/18 11:21 Dose: 650 mg Al Hydroxide/Mg Hydroxide (Milk Of Magnesia Liq) 30 ml PO Q12H PRN PRN Reason: Mild Constipation Albuterol (Duoneb Neb (Prn)) 1 ampul NEB Q4HR NEB PRN PRN Reason: DYSPNEA Albuterol (Duoneb Neb (Estephania)) 1 ampul NEB Q6HR WHILE AWAKE NEB [facility] Last Admin: 04/20/18 12:36 Dose: 1 ampul Bisacodyl (Dulcolax Supp) 10 mg RECTAL DAILY PRN PRN Reason: SEVERE CONSITIPATION Enoxaparin Sodium (Lovenox Inj) 40 mg SQ Q24H [facility] Last Admin: 04/19/18 21:12 Dose: 40 mg Lactulose (Lactulose Liq) 30 ml PO DAILY PRN PRN Reason: SEVERE CONSITIPATION Methylprednisolone Sodium Succinate (Solumedrol Inj) 30 mg IV.PUSH Q12HR [facility] Nystatin (Mycostatin) 500,000 unit PO Q8HR [facility] Last Admin: 04/20/18 14:28 Dose: 500,000 unit Ondansetron HCl (Zofran Inj) 4 mg IV.PUSH Q6H PRN PRN Reason: NAUSEA OR VOMITING Senna/Docusate Sodium (Dona-Colace) 1 tab PO BID [facility] Last Admin: 04/20/18 11:21 Dose: 1 tab Sennosides (Senokot) 17.2 mg PO Q12H PRN PRN Reason: Moderate Constipation Trimethoprim/Sulfamethoxazole (Bactrim Ds) 2 tab PO Q8HR [facility] Last Admin: 04/20/18 14:29 Dose: 2 tab Allergies Allergy/AdvReac Type Severity Reaction Status Date / Time No Known Allergies Allergy Verified 04/18/18 08:47 Exam Vital signs: Vital Signs 04/19/18 16:00 04/19/18 19:37 04/19/18 20:00 Temperature 98.4 F 98.8 F Pulse Rate 80 78 90 Respiratory Rate 18 18 20 Blood Pressure 126/77 154/90 H Pulse Oximetry 92 L 95 04/20/18 00:00 04/20/18 04:00 04/20/18 08:30 Temperature 98.4 F 98.5 F Pulse Rate 78 74 81 Respiratory Rate 20 20 15 Blood Pressure 131/81 132/80 Pulse Oximetry 95 97 95 04/20/18 12:37 Temperature Pulse Rate 79 Respiratory Rate 15 Blood Pressure Pulse Oximetry Intake & Output 04/19/18 04/20/18 04/20/18 18:59 06:59 18:59 Other: Date of Last Bowel Movement 04/18/18 Narrative: Physical Examination GENERAL: Patient is a thin, well-developed male, awake and alert, not in respiratory distress. SKIN: Cool and dry. No generalized rash, no ecchymoses and no evidence of embolic lesions. HEAD: Atraumatic. Normocephalic. No temporal wasting, or tenderness. EYES: [place] conjunctiva. No petechia or hemorrhage. Pupils equal, round and reactive to light. Extraocular movements full and intact. No scleral icterus. No injection or drainage. EARS, NOSE AND THROAT: Nose without bleeding or purulent nasal discharge. No sinus tenderness. Mucous membranes moist. Has oral thrush - white coating on tongue and in his buccal mucosa. NECK: Trachea midline. Supple and not tender, no meningeal signs CARDIOVASCULAR: Regular rate and rhythm. No murmurs, rubs or gallops heard RESPIRATORY: Breath sounds equal bilaterally. Has scattered rales ABDOMEN: Soft, flat, non-tender, nondistended. Bowel sounds present and normoactive. No guarding. No rebound. No organomegaly. EXTREMITIES: No clubbing, cyanosis, or edema.No joint effusion, has good ROM. No calf tenderness. Well perfused and warm. NEUROLOGICAL: Awake and alert. Cranial nerves grossly intact. Motor grossly within normal limits. PSYCHIATRIC: Normal affect, calm and cooperative. LINE: No evidence of infection Results - Labs CBC & Chem 7: 04/22/18 06:45 04/22/18 12:27 Labs: Laboratory Results - last 24 hr 04/18/18 04/20/18 09:42 13:50 Puncture Site Left radial Patient Temperature 98.6 O2 Saturation 74 L* ABG pH 7.51 H* ABG pCO2 28 L ABG pO2 41 L* ABG HCO3 22 ABG O2 Content 11.9 L ABG Base Excess -0.7 ABG Methemoglobin 0.7 Juwan Test Y Hemoglobin 11.4 L Carboxyhemoglobin 1.3 O2 Delivery Device Ra Critical Value Yes HIV-1 Antibody Positive HIV-2 Antibody Indeterminate HIV (1&2) Ag & Ab Refer Reactive - Imaging Impressions Chest CT 04/20/18 00:00 CONCLUSION: 1. Interval development of moderate-sized pericardial effusion. 2. Persistent diffuse interstitial lung disease with scattered emphysematous changes. 3. Interval development of minimal nodular infiltrate within the right lower lobe posteriorly. 4. Coronary artery calcifications. Chest X-Ray 04/18/18 08:48 CONCLUSION: 1. Persistent diffuse interstitial prominence with improved patchy bilateral groundglass opacities. Although improved in comparison to most recent exam, overall abnormalities are new since more remote 2016 exam. Differential considerations again include interval drug reaction or inhalational exposure with improving superimposed airspace disease/infection. Assessment and Plan - Plan Impression SOB, cough, has bilateral interstitial infiltrates, new HIV, suspicious for PCP Has known bullous emphysema, with a lot of blebs in upper lobes Weight loss Odynophagia, ?che esophagitis, has bad oral thrush Recommendation Agree with Bactrim and Steroids Check CD4 counts Oral Diflucan Add zithromax Check atypical serologies Follow C/S May need GI evaluation of his odynophagia Monitor progress I will determine course of Rx once work-up is completed I will follow along with you Thank you for this consultation
[2018-04-20] MEDS: Azithromycin 250 MG Tablet PO SCH (17:52)
[2018-04-20] MEDS: MethylPREDNISolone Sod Succinate Inj 40 MG/ML Vial IV.PUSH SCH ×2 (17:55→22:11)
[2018-04-20] MEDS: Enoxaparin Inj 40 MG/0.4 ML Syringe SQ SCH (22:11)
[2018-04-21] MEDS: MethylPREDNISolone Sod Succinate Inj 40 MG/ML Vial IV.PUSH SCH ×2 (09:28→21:44)
[2018-04-21] MEDS: Senna/Docusate Sodium 8.6/50 MG Tablet PO SCH ×2 (09:29→21:40)
[2018-04-21] MEDS: Azithromycin 250 MG Tablet PO SCH (09:31)
--- NOTE | 2018-04-21 14:31 | P.PNIM ---
Subjective Interval history: Patient says he feels somewhat better than he did yesterday. He still has an occasional cough. He is currently in his room with his girlfriend at bedside. Physical Exam Vital signs: Vital Signs 04/20/18 19:42 04/20/18 20:00 04/21/18 07:54 Temperature 99.5 F Pulse Rate 72 114 H 75 Respiratory Rate 16 20 18 Blood Pressure 141/82 H Pulse Oximetry 99 90 L 93 L 04/21/18 08:05 Temperature 97.7 F Pulse Rate Respiratory Rate 20 Blood Pressure 137/81 Pulse Oximetry Intake & Output 04/20/18 04/21/18 04/21/18 18:59 06:59 18:59 Other: Date of Last Bowel Movement 04/18/18 Narrative: General patient states that he feels anxious because he is curious about his diagnosis. HEENT extraocular movements are intact, clear oropharyngeal mucosa, no JVD Cardiovascular S1-S2 audible Respiratory coarseness bilaterally Abdomen soft, nontender, nondistended, normal bowel sounds Extremities no edema 2+ distal pulses in bilateral upper and lower extremities Neuro there are no neurological deficits. Results - Labs CBC & Chem 7: 04/18/18 08:55 04/18/18 08:55 Microbiology 04/18/18 08:50 Blood - Peripheral Aerobic Blood Culture - Preliminary No growth in 3 days 04/18/18 08:50 Blood - Peripheral Anaerobic Blood Culture - Preliminary No growth in 3 days 04/18/18 08:55 Blood - Peripheral Aerobic Blood Culture - Preliminary No growth in 3 days 04/18/18 08:55 Blood - Peripheral Anaerobic Blood Culture - Preliminary No growth in 3 days 04/19/18 17:48 Sputum - Expectorated Sputum Gram Stain - Final 04/19/18 17:48 Sputum - Expectorated Sputum Sputum Culture - Preliminary - Imaging Impressions Chest CT 04/20/18 00:00 CONCLUSION: 1. Interval development of moderate-sized pericardial effusion. 2. Persistent diffuse interstitial lung disease with scattered emphysematous changes. 3. Interval development of minimal nodular infiltrate within the right lower lobe posteriorly. 4. Coronary artery calcifications. Assessment and Plan - Plan This patient is a 58-year-old -[place] male with a history of polysubstance abuse. Patient admits to using crack cocaine frequently and presented to our emergency department with complaints of dyspnea and chest pain. He complained of a mild cough however not having any fevers or any significant sputum production patient initially. He also reports a 25 pound weight loss over the past 1-2 months. In the emergency department he was found to be hypoxic and was then placed on supplemental oxygen. Chest x-ray showed bilateral interstitial infiltrates. 1. Acute hypoxic respiratory failure possibly secondary to PCP pneumonia 2. HIV positive 3. Pericardial effusion Patient is currently on supplemental oxygen at [address] shows development of moderate sized pericardial effusion. A 2D echocardiogram was ordered to evaluate this pericardial effusion. Patient is tachycardic with the heart rate currently in the low 100s and stable blood pressure. CT chest also showed persistent diffuse interstitial lung disease with emphysematous changes, as well as a right lower lobe infiltrate. Labs show the patient is HIV positive. CD4 count pending LDH is also elevated. Infectious disease following and started the patient on antibiotics for atypical coverage. Continue Bactrim and steroids for presumptive PCP. 4. Oral thrush Patient started on Diflucan. Painful swallowing has improved somewhat however still present. All cultures will be followed up. Continue breathing treatments and supplemental oxygen. We will continue the current management and I will follow up with infectious disease recommendations. 4. Polysubstance abuse Patient was counseled on his polysubstance abuse and he says he is seeking help. Lovenox for DVT prophylaxis
[2018-04-21 15:52] LABS: Hematocrit 37.7 % (39.0-51.0); Hemoglobin 12.4 gm/dL (13.0-17.0); Mean Corpuscular HGB Conc 32.9 % (32.0-36.0); Mean Corpuscular Hemoglobin 23.4 pg (27.0-34.0); Mean Corpuscular Volume 71.1 fL (80.0-100.0); Mean Platelet Volume 7.8 fL (7.0-11.0); Platelet Count 409 th/mm3 (150-450); Red Cell Distribution Width 15.3 % (11.6-17.2); White Blood Count 8.3 th/mm3 (4.0-11.0)
[2018-04-21 16:03] LABS: Anion Gap 11 meq/L (5-15); Blood Urea Nitrogen 19 mg/dL (7-18); Calcium 9.1 mg/dL (8.5-10.1); Carbon Dioxide 22.2 meq/L (21.0-32.0); Chloride 99 meq/L (98-107); Glomerular Filtration Rate Greater Than 89 mL/min (>89); Glucose,Random 111 mg/dL (74-106); Magnesium 2.4 mg/dL (1.5-2.5); Potassium 4.2 meq/L (3.5-5.1); Sodium 132 meq/L (136-145)
[2018-04-21 16:26] LABS: Acanthocytes Occ; Lymphocytes 1 % (9-44); Monocytes 1 % (0-8); Platelet Morphology Normal (Normal); Target Cells 1+; Toxic Granulation 1+
[2018-04-21 16:28] LABS: Spherocytes Occ
--- NOTE | 2018-04-21 21:24 | ECHRPT ---
Indication: EFFUSION CONCLUSIONS The left ventricular systolic function is normal with an estimated ejection fraction in the range of 60-65%. Normal left ventricular size. Wall thickness is normal. No regional wall motion abnormalities are present. There is mild to moderate tricuspid valve regurgitation. The estimated pulmonary arterial pressure is 34 mmHg. There is a small pericardial effusion present. The pericardial effusion is primarily located anteriorly. No hemodynamically significant echocardiographic features were observed (no pre-tamponade physiology). BP: / HR: Rhythm: Sinus MEASUREMENTS (Male / Female) Normal Values Technical Quality:Good 2D ECHO LV Diastolic Diameter PLAX 4.1 cm 4.2 - 5.9 / 3.9 - 5.3 cm LV Systolic Diameter PLAX 2.9 cm IVS Diastolic Thickness 1.0 cm 0.6 - 1.0 / 0.6 - 0.9 cm LVPW Diastolic Thickness 1.0 cm 0.6 - 1.0 / 0.6 - 0.9 cm LV Relative Wall Thickness 0.5 LVOT Diameter 1.8 cm LA Systolic Diameter LX 1.9 cm 3.0 - 4.0 / 2.7 - 3.8 cm LV Ejection Fraction MOD 4C 61.4 % LV Ejection Fraction 4C AL 62.4 % M-MODE Aortic Root Diameter MM 1.9 cm AV Cusp Separation MM 2.0 cm DOPPLER AV Peak Velocity 141.0 cm/s AV Peak Gradient 8.0 mmHg LVOT Peak Velocity 85.4 cm/s LVOT Peak Gradient 2.9 mmHg AV Area Cont Eq pk 1.5 cm MV Area PHT 5.9 cm Mitral E Point Velocity 65.2 cm/s Mitral A Point Velocity 80.0 cm/s Mitral E to A Ratio 0.8 LV E' Lateral Velocity 9.9 cm/s Mitral E to LV E' Lateral Ratio 6.6 LV E' Septal Velocity 15.5 cm/s Mitral E to LV E' Septal Ratio 4.2 TR Peak Velocity 243.0 cm/s TR Peak Gradient 23.6 mmHg Right Atrial Pressure 10.0 mmHg Pulmonary Artery Systolic Pressu 33.6 mmHg Right Ventricular Systolic Press 33.6 mmHg PV Peak Velocity 77.4 cm/s PV Peak Gradient 2.4 mmHg FINDINGS LEFT VENTRICLE The left ventricular systolic function is normal with an estimated ejection fraction in the range of 60-65%. Normal left ventricular size. Wall thickness is normal. No regional wall motion abnormalities are present. RIGHT VENTRICLE Normal right ventricular size and systolic function. LEFT ATRIUM The left atrial size is normal. RIGHT ATRIUM The right atrial size is normal. ATRIAL SEPTUM Normal atrial septal thickness without atrial level shunting by limited color doppler interrogation. AORTA The aortic root and proximal ascending aorta are normal in size on limited imaging. MITRAL VALVE Structurally normal mitral valve. No mitral valve stenosis or regurgitation. AORTIC VALVE Trileaflet aortic valve. No aortic valve stenosis or regurgitation. TRICUSPID VALVE Structurally normal tricuspid valve. There is mild to moderate tricuspid valve regurgitation. The estimated pulmonary arterial pressure is 33.6 mmHg. PULMONARY VALVE No pulmonary valve regurgitation or stenosis. VESSELS The inferior vena cava is normal in size. PERICARDIUM There is a small pericardial effusion present. The pericardial effusion is primarily located anteriorly. No hemodynamically significant echocardiographic features were observed (no pre-tamponade physiology). Davina Britt MD, FACC (Electronically Signed) Final Date:21 April 2018 21:23
[2018-04-21] MEDS: Acetaminophen 325 MG Tablet PO PRN (21:41)
[2018-04-21] MEDS: Enoxaparin Inj 40 MG/0.4 ML Syringe SQ SCH (21:44)
[2018-04-22] MEDS: Acetaminophen 325 MG Tablet PO PRN (05:39)
[2018-04-22 08:03] LABS: Hematocrit 37.2 % (39.0-51.0); Hemoglobin 12.3 gm/dL (13.0-17.0); Mean Corpuscular HGB Conc 33.1 % (32.0-36.0); Mean Corpuscular Hemoglobin 23.3 pg (27.0-34.0); Mean Corpuscular Volume 70.4 fL (80.0-100.0); Platelet Count 391 th/mm3 (150-450); Red Blood Count 5.28 mil/mm3 (4.50-5.90); Red Cell Distribution Width 15.1 % (11.6-17.2); White Blood Count 8.1 th/mm3 (4.0-11.0)
[2018-04-22 08:23] LABS: Calcium 9.3 mg/dL (8.5-10.1); Carbon Dioxide 22.9 meq/L (21.0-32.0); Magnesium 2.4 mg/dL (1.5-2.5); Potassium 5.3 meq/L (3.5-5.1)
[2018-04-22] MEDS: MethylPREDNISolone Sod Succinate Inj 40 MG/ML Vial IV.PUSH SCH ×2 (09:25→20:32)
[2018-04-22] MEDS: Senna/Docusate Sodium 8.6/50 MG Tablet PO SCH ×2 (09:25→20:33)
[2018-04-22] MEDS: Azithromycin 250 MG Tablet PO SCH (09:26)
[2018-04-22 09:42] LABS: Lymphocytes 2 % (9-44); Monocytes 3 % (0-8); Platelet Estimate Normal (Normal); Platelet Morphology Normal (Normal)
[2018-04-22 09:44] LABS: Acanthocytes Occ; Ovalocytes 1+; Spherocytes Occ; Target Cells 1+
--- NOTE | 2018-04-22 11:19 | P.PNIM ---
Subjective Interval history: Patient complains of painful swallowing. He is able to tolerate his diet and is requesting Ensure with his meals. Physical Exam Vital signs: Vital Signs 04/21/18 12:00 04/21/18 14:29 04/21/18 16:00 Temperature 97 F L 97.9 F Pulse Rate 73 77 94 H Respiratory Rate 18 20 Blood Pressure 135/82 154/89 H Pulse Oximetry 91 L 04/21/18 20:00 04/21/18 20:13 04/22/18 00:00 Temperature 98.1 F 97.9 F Pulse Rate 84 94 H 75 Respiratory Rate 17 20 19 Blood Pressure 148/84 H 126/79 Pulse Oximetry 93 L 95 99 04/22/18 04:00 04/22/18 08:00 04/22/18 08:05 Temperature 97.9 F 97.6 F Pulse Rate 73 81 69 Respiratory Rate 17 18 16 Blood Pressure 148/84 H 144/88 H Pulse Oximetry 95 96 99 Intake & Output 04/21/18 04/22/18 04/22/18 18:59 06:59 18:59 Other: Date of Last Bowel Movement 04/18/18 Narrative: General patient states that he feels anxious because he is curious about his diagnosis, complains of painful swallowing. HEENT extraocular movements are intact, clear oropharyngeal mucosa, no JVD, oral thrush Cardiovascular S1-S2 audible Respiratory coarseness bilaterally Abdomen soft, nontender, nondistended, normal bowel sounds Extremities no edema 2+ distal pulses in bilateral upper and lower extremities Neuro there are no neurological deficits. Results - Labs CBC & Chem 7: 04/22/18 06:45 04/22/18 06:45 Laboratory Results - last 24 hr 04/21/18 04/21/18 04/22/18 15:22 15:22 06:45 WBC 8.3 8.1 RBC 5.30 5.28 Hgb 12.4 L 12.3 L Hct 37.7 L 37.2 L MCV 71.1 L 70.4 L MCH 23.4 L 23.3 L MCHC 32.9 33.1 RDW 15.3 15.1 Plt Count 409 391 MPV 7.8 8.0 Prelim Diff (Auto) Manual diff required Manual diff required WBC Differential Manual diff final Manual diff final Seg Neuts % (Manual) 98 H 95 H Lymphocytes % (Manual) 1 L 2 L Monocytes % (Manual) 1 3 Abs Neuts (Manual) 8.1 H 7.7 Differential Comment . . Toxic Granulation 1+ H Platelet Estimate High H Normal Platelet Morphology Normal Normal Spherocytes Occ H Occ H Target Cells 1+ H 1+ H Ovalocytes 1+ H Acanthocytes (Spur) Occ H Occ H Sodium 132 L Potassium 4.2 Chloride 99 Carbon Dioxide 22.2 Anion Gap 11 BUN 19 H Creatinine 0.96 Estimated GFR Greater than 89 Random Glucose 111 H Calcium 9.1 Magnesium 2.4 04/22/18 06:45 WBC RBC Hgb Hct MCV MCH MCHC RDW Plt Count MPV Prelim Diff (Auto) WBC Differential Seg Neuts % (Manual) Lymphocytes % (Manual) Monocytes % (Manual) Abs Neuts (Manual) Differential Comment Toxic Granulation Platelet Estimate Platelet Morphology Spherocytes Target Cells Ovalocytes Acanthocytes (Spur) Sodium 132 L Potassium 5.3 H D Chloride 99 Carbon Dioxide 22.9 Anion Gap 10 BUN 26 H Creatinine 1.15 Estimated GFR 79 L Random Glucose 92 Calcium 9.3 Magnesium 2.4 Microbiology 04/18/18 08:50 Blood - Peripheral Aerobic Blood Culture - Preliminary No growth in 4 days 04/18/18 08:50 Blood - Peripheral Anaerobic Blood Culture - Preliminary No growth in 4 days 04/18/18 08:55 Blood - Peripheral Aerobic Blood Culture - Preliminary No growth in 4 days 04/18/18 08:55 Blood - Peripheral Anaerobic Blood Culture - Preliminary No growth in 4 days 04/19/18 17:48 Sputum - Expectorated Sputum Gram Stain - Final 04/19/18 17:48 Sputum - Expectorated Sputum Sputum Culture - Final Heavy growth normal respiratory asa Assessment and Plan - Plan This patient is a 58-year-old -Stateless male with a history of polysubstance abuse. Patient admits to using crack cocaine frequently and presented to our emergency department with complaints of dyspnea and chest pain. He complained of a mild cough however not having any fevers or any significant sputum production patient initially. He also reports a 25 pound weight loss over the past 1-2 months. In the emergency department he was found to be hypoxic and was then placed on supplemental oxygen. Chest x-ray showed bilateral interstitial infiltrates. 1. Acute hypoxic respiratory failure possibly secondary to PCP pneumonia concern for TB 2. HIV positive 3. Pericardial effusion Patient is currently on supplemental oxygen at [address] shows development of moderate sized pericardial effusion. A 2D echocardiogram was done yesterday which showed a small pericardial effusion with no signs of tamponade. Patient is tachycardic with the heart rate currently in the low 100s and stable blood pressure. CT chest also showed persistent diffuse interstitial lung disease with emphysematous changes, as well as a right lower lobe infiltrate. Labs show the patient is HIV positive. CD4 count is still pending LDH is also elevated. Continue antibiotics with atypical coverage. Continue Bactrim and steroids for presumptive PCP. Patient is in TB isolation, cultures pending. 4. Oral thrush Patient is currently on Diflucan. Painful swallowing has improved somewhat however still present. 4. Polysubstance abuse Patient was counseled on his polysubstance abuse and he says he is seeking help. Lovenox for DVT prophylaxis
--- NOTE | 2018-04-22 12:29 | P.PNID ---
Subjective Remarks: Patient is a 58-year-old male, presented to the hospital complaining of shortness of breath associated with some chest pain. Patient was recently hospitalized April 13 and at that time he presented with 2-week history of shortness of breath cough. His chest x-ray showed bilateral interstitial infiltrate and some patchy infiltrate on the left lung. He was afebrile at that time, and his white count was normal. Patient was treated as pneumonia, and he had improvement and he was discharged to complete a total of 7 days of antibiotic for pneumonia. He was given Levaquin. Patient came back this time complaining of shortness of breath again and this time he is also complaining of some chest discomfort when he breathes. He has some cough but not really able to bring up any phlegm. Has not had any fever. Patient also complaining of some difficulty swallowing and pain with swallowing. He has had some nausea but no magdaleno vomiting. He denies any urinary complaints. His chest x-ray this time has shown some improvement in the infiltrates on the left lung. HIV testing was done and HIV 1 came back positive. His LDH is elevated. His white count was a little bit up and it is 11,000. CT of the chest did not show any significant change compared to his prior CT but except for the presence of pericardial effusion. 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 He has had problem with spontaneous pneumothorax, and actually in 2011 he underwent VATS procedure with right upper lobe bullectomy, and partial pleurectomy. He has not really followed up with any marketing strategist. Patient denies any sexual contact with known HIV patients. He denies any history of STD. He has never been in care home. He denies IV drug use but does smoke crack cocaine. Patient has been tested HIV negative back in 2006. He has no prior history of exposure to tuberculosis or having a diagnosis of tuberculosis. Patient also has had significant weight loss recently. Infectious disease consultation has been requested to evaluate the patient with no HIV positive disease and possible PCP. Notes reviewed Temps ok Breathing is better Sats better Still with odynophagia CD4 pending TB quantiferon pending Atypical serologies pending Antibiotics: Bactrim Diflucan 400 Lines: PIV Past Medical History: Bullous emphysema with blebs Hx VATS procedure with RUL bullectomy and partial pleurectomy Spontaneous pneumothorax Tobacco abuse Hx of hernia repair Allergies/Adverse Reactions: Allergies No Known Allergies Allergy (Verified 04/18/18 08:47) Objective Vital Signs 04/21/18 14:29 04/21/18 16:00 04/21/18 20:00 Temperature 97.9 F 98.1 F Pulse Rate 77 94 H 84 Respiratory Rate 18 20 17 Blood Pressure 154/89 H 148/84 H Pulse Oximetry 93 L 04/21/18 20:13 04/22/18 00:00 04/22/18 04:00 Temperature 97.9 F 97.9 F Pulse Rate 94 H 75 73 Respiratory Rate 20 19 17 Blood Pressure 126/79 148/84 H Pulse Oximetry 95 99 95 04/22/18 08:00 04/22/18 08:05 Temperature 97.6 F Pulse Rate 87 69 Respiratory Rate 18 16 Blood Pressure 144/88 H Pulse Oximetry 96 99 Intake & Output 04/21/18 04/22/18 04/22/18 18:59 06:59 18:59 Other: Date of Last Bowel Movement 04/18/18 04/18/18 08:50 Blood - Peripheral Aerobic Blood Culture - Preliminary No growth in 4 days 04/18/18 08:50 Blood - Peripheral Anaerobic Blood Culture - Preliminary No growth in 4 days 04/18/18 08:55 Blood - Peripheral Aerobic Blood Culture - Preliminary No growth in 4 days 04/18/18 08:55 Blood - Peripheral Anaerobic Blood Culture - Preliminary No growth in 4 days 04/19/18 17:48 Sputum - Expectorated Sputum Gram Stain - Final 04/19/18 17:48 Sputum - Expectorated Sputum Sputum Culture - Final Heavy growth normal respiratory asa 04/19/18 17:48 Sputum - Expectorated Sputum Acid Fast Bacilli Smear - Pending 04/19/18 17:48 Sputum - Expectorated Sputum Mycobacterial Culture - Pending Lab - Hematology Results 04/21/18 04/22/18 15:22 06:45 WBC 8.3 8.1 RBC 5.30 5.28 Hgb 12.4 L 12.3 L Hct 37.7 L 37.2 L MCV 71.1 L 70.4 L MCH 23.4 L 23.3 L MCHC 32.9 33.1 RDW 15.3 15.1 Plt Count 409 391 MPV 7.8 8.0 Prelim Diff (Auto) Manual diff required Manual diff required WBC Differential Manual diff final Manual diff final Seg Neuts % (Manual) 98 H 95 H Lymphocytes % (Manual) 1 L 2 L Monocytes % (Manual) 1 3 Abs Neuts (Manual) 8.1 H 7.7 Differential Comment . . Toxic Granulation 1+ H Platelet Estimate High H Normal Platelet Morphology Normal Normal Spherocytes Occ H Occ H Target Cells 1+ H 1+ H Ovalocytes 1+ H Acanthocytes (Spur) Occ H Occ H Lab - Chemistry Results 04/21/18 04/22/18 15:22 06:45 Sodium 132 L 132 L Potassium 4.2 5.3 H D Chloride 99 99 Carbon Dioxide 22.2 22.9 Anion Gap 11 10 BUN 19 H 26 H Creatinine 0.96 1.15 Estimated GFR Greater than 89 79 L Random Glucose 111 H 92 Calcium 9.1 9.3 Magnesium 2.4 2.4 Imaging: ITS Impressions Chest X-Ray 04/18/18 08:48 CONCLUSION: 1. Persistent diffuse interstitial prominence with improved patchy bilateral groundglass opacities. Although improved in comparison to most recent exam, overall abnormalities are new since more remote 2016 exam. Differential considerations again include interval drug reaction or inhalational exposure with improving superimposed airspace disease/infection. Chest CT 04/20/18 00:00 CONCLUSION: 1. Interval development of moderate-sized pericardial effusion. 2. Persistent diffuse interstitial lung disease with scattered emphysematous changes. 3. Interval development of minimal nodular infiltrate within the right lower lobe posteriorly. 4. Coronary artery calcifications. Physical Exam: GENERAL: Patient is a thin, well-developed male, awake and alert, not in respiratory distress. SKIN: Cool and dry. No generalized rash, no ecchymoses and no evidence of embolic lesions. HEAD: Atraumatic. Normocephalic. No temporal wasting, or tenderness. EYES: [place] conjunctiva. No petechia or hemorrhage. Pupils equal, round and reactive to light. Extraocular movements full and intact. No scleral icterus. No injection or drainage. EARS, NOSE AND THROAT: Nose without bleeding or purulent nasal discharge. No sinus tenderness. Mucous membranes moist. Oral thrush in buccal mucosa resolved, still with some white coating on tongue. NECK: Trachea midline. Supple and not tender, no meningeal signs CARDIOVASCULAR: Regular rate and rhythm. No murmurs, rubs or gallops heard RESPIRATORY: poor air movement ABDOMEN: Soft, flat, non-tender, nondistended. Bowel sounds present and normoactive. No guarding. No rebound. No organomegaly. EXTREMITIES: No clubbing, cyanosis, or edema.No joint effusion, has good ROM. No calf tenderness. NEUROLOGICAL: Awake and alert. Cranial nerves grossly intact. Motor grossly within normal limits. PSYCHIATRIC: Normal affect, calm and cooperative. LINE: No evidence of infection Assessment and Plan - Plan Impression SOB, cough, has bilateral interstitial infiltrates, new HIV, suspicious for PCP Has known bullous emphysema, with a lot of blebs in upper lobes Weight loss Odynophagia, ?che esophagitis, oral thrush better - ?other etiologies Recommendation Continue Bactrim and Steroids Check CD4 counts Continue Oral Diflucan Continue zithromax Follow C/S May need GI evaluation of his odynophagia if not better with high dose Diflucan Monitor progress Explained plan to the patient
[2018-04-22 14:42] LABS: TB1 Ag minus Nil Result -0.01 IU/mL
[2018-04-22] MEDS: Nystatin/Diphenhydramine/Lidocaine Mouthwash (Adult) 120 ML Botttle SWISH-SWAL SCH ×3 (15:30→20:55)
[2018-04-22] MEDS ORDERED: Nystatin/Diphenhydramine/Lidocaine Mouthwash (Adult) 120 ML Botttle SWISH-SWAL SCH (18:00)
[2018-04-22] MEDS: Enoxaparin Inj 40 MG/0.4 ML Syringe SQ SCH (20:32)
[2018-04-23] MEDS: Azithromycin 250 MG Tablet PO SCH (08:55)
[2018-04-23] MEDS: Acetaminophen 325 MG Tablet PO PRN (08:55)
[2018-04-23] MEDS: MethylPREDNISolone Sod Succinate Inj 40 MG/ML Vial IV.PUSH SCH ×2 (08:56→20:21)
[2018-04-23] MEDS: Senna/Docusate Sodium 8.6/50 MG Tablet PO SCH ×2 (08:56→20:21)
[2018-04-23] MEDS: Nystatin/Diphenhydramine/Lidocaine Mouthwash (Adult) 120 ML Botttle SWISH-SWAL SCH ×4 (09:00→20:21)
--- NOTE | 2018-04-23 10:22 | P.PNID ---
Subjective Remarks: Patient is a 58-year-old male, presented to the hospital complaining of shortness of breath associated with some chest pain. Patient was recently hospitalized April 13 and at that time he presented with 2-week history of shortness of breath cough. His chest x-ray showed bilateral interstitial infiltrate and some patchy infiltrate on the left lung. He was afebrile at that time, and his white count was normal. Patient was treated as pneumonia, and he had improvement and he was discharged to complete a total of 7 days of antibiotic for pneumonia. He was given Levaquin. Patient came back this time complaining of shortness of breath again and this time he is also complaining of some chest discomfort when he breathes. He has some cough but not really able to bring up any phlegm. Has not had any fever. Patient also complaining of some difficulty swallowing and pain with swallowing. He has had some nausea but no magdaleno vomiting. He denies any urinary complaints. His chest x-ray this time has shown some improvement in the infiltrates on the left lung. HIV testing was done and HIV 1 came back positive. His LDH is elevated. His white count was a little bit up and it is 11,000. CT of the chest did not show any significant change compared to his prior CT but except for the presence of pericardial effusion. 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 He has had problem with spontaneous pneumothorax, and actually in 2011 he underwent VATS procedure with right upper lobe bullectomy, and partial pleurectomy. He has not really followed up with any bottle packing machine cleaner. Patient denies any sexual contact with known HIV patients. He denies any history of STD. He has never been in residential. He denies IV drug use but does smoke crack cocaine. Patient has been tested HIV negative back in 2006. He has no prior history of exposure to tuberculosis or having a diagnosis of tuberculosis. Patient also has had significant weight loss recently. Infectious disease consultation has been requested to evaluate the patient with no HIV positive disease and possible PCP. Notes reviewed Temps ok Breathing is better Coughing up a lot of phlegm Sats better Still with odynophagia - but improving CD4 pending TB quantiferon negative MTB PCR negative Atypical serologies pending Antibiotics: Bactrim Diflucan 400 Lines: PIV Past Medical History: Bullous emphysema with blebs Hx VATS procedure with RUL bullectomy and partial pleurectomy Spontaneous pneumothorax Tobacco abuse Hx of hernia repair Allergies/Adverse Reactions: Allergies No Known Allergies Allergy (Verified 04/18/18 08:47) Objective Vital Signs 04/22/18 13:37 04/22/18 16:00 04/22/18 19:00 Temperature 98.3 F Pulse Rate 73 84 Respiratory Rate 18 18 Blood Pressure 148/94 H Pulse Oximetry 93 L 94 L 04/22/18 19:30 04/22/18 20:00 04/22/18 22:52 Temperature 97.6 F Pulse Rate 80 89 Respiratory Rate 18 16 Blood Pressure 163/95 H Pulse Oximetry 93 L 94 L 04/22/18 23:38 04/23/18 04:00 04/23/18 08:00 Temperature 98.0 F 97.9 F 97.9 F Pulse Rate 82 78 75 Respiratory Rate 18 18 16 Blood Pressure 154/82 H 151/91 H 132/85 Pulse Oximetry 95 96 96 Intake & Output 04/22/18 04/23/18 04/23/18 18:59 06:59 18:59 Intake Total 441 / 441 Balance 441 / 441 Weight 45.6 kg Intake: Oral 441 / 441 Other: # Voids 4 Date of Last Bowel Movement 04/20/18 04/22/18 04/22/18 04/19/18 17:48 Sputum - Expectorated Sputum Acid Fast Bacilli Smear - Final No acid fast bacilli seen 04/19/18 17:48 Sputum - Expectorated Sputum Mycobacterial Culture - Pending 04/18/18 08:50 Blood - Peripheral Aerobic Blood Culture - Preliminary No growth in 4 days 04/18/18 08:50 Blood - Peripheral Anaerobic Blood Culture - Preliminary No growth in 4 days 04/18/18 08:55 Blood - Peripheral Aerobic Blood Culture - Preliminary No growth in 4 days 04/18/18 08:55 Blood - Peripheral Anaerobic Blood Culture - Preliminary No growth in 4 days 04/19/18 17:48 Sputum - Expectorated Sputum Gram Stain - Final 04/19/18 17:48 Sputum - Expectorated Sputum Sputum Culture - Final Heavy growth normal respiratory asa Lab - Hematology Results 04/21/18 04/22/18 15:22 06:45 WBC 8.3 8.1 RBC 5.30 5.28 Hgb 12.4 L 12.3 L Hct 37.7 L 37.2 L MCV 71.1 L 70.4 L MCH 23.4 L 23.3 L MCHC 32.9 33.1 RDW 15.3 15.1 Plt Count 409 391 MPV 7.8 8.0 Prelim Diff (Auto) Manual diff required Manual diff required WBC Differential Manual diff final Manual diff final Seg Neuts % (Manual) 98 H 95 H Lymphocytes % (Manual) 1 L 2 L Monocytes % (Manual) 1 3 Abs Neuts (Manual) 8.1 H 7.7 Differential Comment . . Toxic Granulation 1+ H Platelet Estimate High H Normal Platelet Morphology Normal Normal Spherocytes Occ H Occ H Target Cells 1+ H 1+ H Ovalocytes 1+ H Acanthocytes (Spur) Occ H Occ H Lab - Chemistry Results 04/21/18 04/22/18 04/22/18 15:22 06:45 12:27 Sodium 132 L 132 L Potassium 4.2 5.3 H D 5.0 Chloride 99 99 Carbon Dioxide 22.2 22.9 Anion Gap 11 10 BUN 19 H 26 H Creatinine 0.96 1.15 Estimated GFR Greater than 89 79 L Random Glucose 111 H 92 Calcium 9.1 9.3 Magnesium 2.4 2.4 Imaging: ITS Impressions Chest X-Ray 04/18/18 08:48 CONCLUSION: 1. Persistent diffuse interstitial prominence with improved patchy bilateral groundglass opacities. Although improved in comparison to most recent exam, overall abnormalities are new since more remote 2016 exam. Differential considerations again include interval drug reaction or inhalational exposure with improving superimposed airspace disease/infection. Chest CT 04/20/18 00:00 CONCLUSION: 1. Interval development of moderate-sized pericardial effusion. 2. Persistent diffuse interstitial lung disease with scattered emphysematous changes. 3. Interval development of minimal nodular infiltrate within the right lower lobe posteriorly. 4. Coronary artery calcifications. Physical Exam: GENERAL: awake and alert, not in respiratory distress. SKIN: Cool and dry. No generalized rash, no ecchymoses and no evidence of embolic lesions. HEAD: Atraumatic. Normocephalic. No temporal wasting, or tenderness. EYES: [place] conjunctiva. No petechia or hemorrhage. Pupils equal, round and reactive to light. Extraocular movements full and intact. No scleral icterus. No injection or drainage. EARS, NOSE AND THROAT: Nose without bleeding or purulent nasal discharge. No sinus tenderness. Mucous membranes moist. Oral thrush in buccal mucosa resolved, still with some white coating on tongue, better. NECK: Trachea midline. Supple and not tender, no meningeal signs CARDIOVASCULAR: Regular rate and rhythm. No murmurs, rubs or gallops heard RESPIRATORY: poor air movement ABDOMEN: Soft, flat, non-tender, nondistended. Bowel sounds present and normoactive. No guarding. No rebound. No organomegaly. EXTREMITIES: No clubbing, cyanosis, or edema.No joint effusion, has good ROM. No calf tenderness. NEUROLOGICAL: Awake and alert. Cranial nerves grossly intact. Motor grossly within normal limits. PSYCHIATRIC: Normal affect, calm and cooperative. LINE: No evidence of infection Assessment and Plan - Plan Impression SOB, cough, has bilateral interstitial infiltrates, new HIV, suspicious for PCP Has known bullous emphysema, with a lot of blebs in upper lobes Weight loss Odynophagia, ?che esophagitis, has bad oral thrush Recommendation Continue Bactrim and Steroids Await CD4 counts Continue high dose Diflucan Continue zithromax Await atypical serologies Follow C/S Monitor progress D/C TB isolation D/W RN
--- NOTE | 2018-04-23 10:24 | P.PN ---
Subjective Interval history: Follow-up for respiratory failure, PCP pneumonia, HIV, pericardial effusion, thrush. The patient's TB PCR was resulted negative, isolation discontinued. The patient reports mild improvement today. He still complains of some shortness of breath and generalized weakness. He reports a continued cough, productive of white sputum. Denies fevers or chills overnight. He states his swallowing has improved, still with some mild odynophagia, denies dysphagia. He states he eats slowly due to the pain. Denies any abdominal pain, nausea/ vomiting, or diarrhea. Denies any chest pain. He has no other medical complaints at this time. Physical Exam Vital signs: Vital Signs 04/22/18 13:37 04/22/18 16:00 04/22/18 19:00 Temperature 98.3 F Pulse Rate 73 84 Respiratory Rate 18 18 Blood Pressure 148/94 H Pulse Oximetry 93 L 94 L 04/22/18 19:30 04/22/18 20:00 04/22/18 22:52 Temperature 97.6 F Pulse Rate 80 89 Respiratory Rate 18 16 Blood Pressure 163/95 H Pulse Oximetry 93 L 94 L 04/22/18 23:38 04/23/18 04:00 04/23/18 08:00 Temperature 98.0 F 97.9 F 97.9 F Pulse Rate 82 78 75 Respiratory Rate 18 18 16 Blood Pressure 154/82 H 151/91 H 132/85 Pulse Oximetry 95 96 96 Intake & Output 04/22/18 04/23/18 04/23/18 18:59 06:59 18:59 Intake Total 441 / 441 Balance 441 / 441 Weight 45.6 kg Intake: Oral 441 / 441 Other: # Voids 4 Date of Last Bowel Movement 04/20/18 04/22/18 04/22/18 Narrative: GENERAL: Thin cachectic appearing AA male patient in NAD. SKIN: Warm and dry. No rash. HEENT: Normocephalic. Atraumatic. Pupils equal and round. Mucous membranes pink and moist. Tongue and buccal mucosa with mild white plaques, minimal erythema, improving. CARDIOVASCULAR: Regular rate and rhythm. No murmur appreciated. RESPIRATORY: No accessory muscle use. Some faint coarse breath sounds, otherwise clear to auscultation. Breath sounds equal bilaterally. GASTROINTESTINAL: Abdomen soft, non-tender, nondistended. Normoactive bowel sounds x4. MUSCULOSKELETAL: No obvious deformities. Extremities without clubbing, cyanosis , or edema. NEUROLOGICAL: Awake and alert. No obvious cranial nerve deficits. Motor grossly within normal limits. Moving all extremities spontaneously. Normal speech. PSYCHIATRIC: Appropriate mood and affect; insight and judgment normal. Results - Labs CBC & Chem 7: 04/22/18 06:45 04/22/18 12:27 Laboratory Results - last 24 hr 04/18/18 04/22/18 04/22/18 09:42 12:27 13:35 Potassium 5.0 M.tuberculosis DNA (PCR) Not detected TB (QFT) Gold In Tube Negative TB Test (QFT) Nil 0.06 TB Test Mitogen - Nil 2.91 TB Test Antigen - Nil -0.01 Microbiology 04/19/18 17:48 Sputum - Expectorated Sputum Acid Fast Bacilli Smear - Final No acid fast bacilli seen 04/18/18 08:50 Blood - Peripheral Aerobic Blood Culture - Preliminary No growth in 4 days 04/18/18 08:50 Blood - Peripheral Anaerobic Blood Culture - Preliminary No growth in 4 days 04/18/18 08:55 Blood - Peripheral Aerobic Blood Culture - Preliminary No growth in 4 days 04/18/18 08:55 Blood - Peripheral Anaerobic Blood Culture - Preliminary No growth in 4 days 04/19/18 17:48 Sputum - Expectorated Sputum Gram Stain - Final 04/19/18 17:48 Sputum - Expectorated Sputum Sputum Culture - Final Heavy growth normal respiratory asa - Imaging Chest X-Ray 04/18/18 08:48 CONCLUSION: 1. Persistent diffuse interstitial prominence with improved patchy bilateral groundglass opacities. Although improved in comparison to most recent exam, overall abnormalities are new since more remote 2016 exam. Differential considerations again include interval drug reaction or inhalational exposure with improving superimposed airspace disease/infection. Chest CT 04/20/18 00:00 CONCLUSION: 1. Interval development of moderate-sized pericardial effusion. 2. Persistent diffuse interstitial lung disease with scattered emphysematous changes. 3. Interval development of minimal nodular infiltrate within the right lower lobe posteriorly. 4. Coronary artery calcifications. Assessment and Plan - Plan 58-year-old -[place] male with a history of polysubstance abuse, with frequent crack cocaine use, presented to the ED with complaints of dyspnea, cough, and chest pain. He also reports a 25 pound weight loss over the past 1- 2 months. In the ED he was found to be hypoxic. Chest x-ray showed bilateral interstitial infiltrates. Acute hypoxic respiratory failure possibly secondary to PCP pneumonia HIV positive Pericardial effusion -CXR 04/18 reviewed, shows persistent diffuse interstitial prominence with improved patchy bilateral groundglass opacities. -Chest CT 04/20 reviewed, shows interval development of moderate-sized pericardial effusion; Persistent diffuse interstitial lung disease with scattered emphysematous changes; Interval development of minimal nodular infiltrate within the right lower lobe posteriorly. -Echocardiogram 04/21 showed EF 60-65%, small pericardial effusion, no pre- tamponade findings -HIV positive diagnosed on this admission, lymphocyte profile pending -Blood cultures with NGTD -Sputum culture with heavy growth normal respiratory asa -Continue on oxygen as needed, on 3L NC -Continue antibiotics with bactrim and azithro; coverage for PCP/atypical PNA -TB PCR negative, isolation discontinued -Infectious disease consulted and following, appreciate assistance Oral Candidiasis -Continue on Diflucan. -Added Magic Mouthwash -improving, tolerating oral intake Polysubstance abuse -Patient was counseled on his polysubstance abuse and he says he is seeking help. Lovenox for DVT prophylaxis Discharge Planning: Discharge pending further clinical improvement, cultures, and clearance from ID. Will also need to wean off oxygen prior to discharge. Patient does not have insurance and arranging oxygen at home would be near impossible. Consider walk test prior to discharge.
[2018-04-23] MEDS: Enoxaparin Inj 40 MG/0.4 ML Syringe SQ SCH (20:21)
[2018-04-24] MEDS: Acetaminophen 325 MG Tablet PO PRN (07:59)
[2018-04-24] MEDS: MethylPREDNISolone Sod Succinate Inj 40 MG/ML Vial IV.PUSH SCH ×2 (08:01→22:12)
[2018-04-24] MEDS: Azithromycin 250 MG Tablet PO SCH ×2 (08:08→18:16)
[2018-04-24] MEDS: Nystatin/Diphenhydramine/Lidocaine Mouthwash (Adult) 120 ML Botttle SWISH-SWAL SCH ×4 (08:08→22:11)
[2018-04-24] MEDS: Senna/Docusate Sodium 8.6/50 MG Tablet PO SCH ×2 (08:08→22:12)
--- NOTE | 2018-04-24 12:16 | P.PN ---
Subjective Interval history: Follow-up for respiratory failure, PCP pneumonia, HIV, pericardial effusion, thrush, dysphagia. Patient reports continued odynophagia and dysphagia. He states he had a lot of difficulty eating last night. He denies any fevers or chills overnight. Reports continued shortness of breath with cough productive of white sputum. Denies hemoptysis. Denies any chest pain. Denies any other medical complaints at this time. Physical Exam Vital signs: Vital Signs 04/23/18 16:00 04/23/18 20:00 04/24/18 00:00 Temperature 97.9 F 97.7 F 97.4 F L Pulse Rate 79 82 72 Respiratory Rate 18 18 18 Blood Pressure 150/98 H 147/94 H 149/94 H Pulse Oximetry 97 97 98 04/24/18 02:30 04/24/18 04:00 04/24/18 05:15 Temperature 97.9 F Pulse Rate 73 Respiratory Rate 18 18 17 Blood Pressure 153/95 H Pulse Oximetry 100 04/24/18 08:00 04/24/18 09:00 Temperature 97.6 F Pulse Rate 70 84 Respiratory Rate 16 Blood Pressure 152/94 H Pulse Oximetry 99 Intake & Output 04/23/18 04/24/18 04/24/18 18:59 06:59 18:59 Output Total 700 / 700 Balance -700 / -700 Weight 45.6 kg Output: Urine 700 / 700 Other: # Voids 1 Date of Last Bowel Movement 04/21/18 04/20/18 04/22/18 Narrative: GENERAL: Thin cachectic appearing AA male patient in [facility]. SKIN: Warm and dry. No rash. HEENT: Normocephalic. Atraumatic. Bitemporal wasting. Pupils equal and round. Mucous membranes pink and moist. Tongue and buccal mucosa with mild white plaques, minimal erythema, improving. CARDIOVASCULAR: Regular rate and rhythm. No murmur appreciated. RESPIRATORY: No accessory muscle use. Some faint coarse breath sounds, otherwise clear to auscultation. Breath sounds equal bilaterally. GASTROINTESTINAL: Scaphoid abdomen, soft, non-tender, nondistended. Normoactive bowel sounds x4. MUSCULOSKELETAL: No obvious deformities. Extremities without clubbing, cyanosis , or edema. NEUROLOGICAL: Awake and alert. No obvious cranial nerve deficits. Motor grossly within normal limits. Moving all extremities spontaneously. Normal speech. PSYCHIATRIC: Appropriate mood and affect; insight and judgment normal. Results - Labs CBC & Chem 7: 04/22/18 06:45 04/22/18 12:27 Laboratory Results - last 24 hr 04/21/18 04/21/18 15:22 15:22 Absolute Lymphocytes 599 L % CD3 Cells 62 Absolute CD3 Count 373 L % CD3-/CD16+/CD56+ 30 H Abs CD3-/CD16+/CD56+ 179 % CD4 Cells 5 L Absolute CD4 Count 30 L T-Help/Suppress Ratio 0.10 L % CD8 Cells 58 H Absolute CD8 Count 345 % CD19 Cells 8 Absolute CD19 Count 47 L M. pneumoniae Interp . Mycoplasma pneumon IgG Positive Mycoplasma pneumon IgM Negative Microbiology 04/18/18 08:50 Blood - Peripheral Aerobic Blood Culture - Final No growth in 5 days 04/18/18 08:50 Blood - Peripheral Anaerobic Blood Culture - Final No growth in 5 days 04/18/18 08:55 Blood - Peripheral Aerobic Blood Culture - Final No growth in 5 days 04/18/18 08:55 Blood - Peripheral Anaerobic Blood Culture - Final No growth in 5 days - Imaging Chest X-Ray 04/18/18 08:48 CONCLUSION: 1. Persistent diffuse interstitial prominence with improved patchy bilateral groundglass opacities. Although improved in comparison to most recent exam, overall abnormalities are new since more remote 2016 exam. Differential considerations again include interval drug reaction or inhalational exposure with improving superimposed airspace disease/infection. Chest CT 04/20/18 00:00 CONCLUSION: 1. Interval development of moderate-sized pericardial effusion. 2. Persistent diffuse interstitial lung disease with scattered emphysematous changes. 3. Interval development of minimal nodular infiltrate within the right lower lobe posteriorly. 4. Coronary artery calcifications. Assessment and Plan - Plan 58-year-old -[place] male with a history of polysubstance abuse, with frequent crack cocaine use, presented to the ED with complaints of dyspnea, cough, and chest pain. He also reports a 25 pound weight loss over the past 1- 2 months. In the ED he was found to be hypoxic. Chest x-ray showed bilateral interstitial infiltrates. Acute hypoxic respiratory failure possibly secondary to PCP pneumonia HIV positive Pericardial effusion -CXR 04/18 reviewed, shows persistent diffuse interstitial prominence with improved patchy bilateral groundglass opacities. -Chest CT 04/20 reviewed, shows interval development of moderate-sized pericardial effusion; Persistent diffuse interstitial lung disease with scattered emphysematous changes; Interval development of minimal nodular infiltrate within the right lower lobe posteriorly. -Echocardiogram 04/21 showed EF 60-65%, small pericardial effusion, no pre- tamponade findings -HIV positive diagnosed on this admission, lymphocyte profile with CD4 count 30 -Blood cultures with NGTD -Sputum culture with heavy growth normal respiratory asa, AFB negative -Continue on oxygen as needed, on 3L [place] -Continue antibiotics with bactrim and azithro; coverage for PCP/atypical PNA -TB PCR negative, isolation discontinued -Infectious disease consulted and following, appreciate assistance Oral Candidiasis -Continue on Diflucan and Magic Mouthwash -still with odynophagia/dysphagia, consult GI for EGD Polysubstance abuse -Patient was counseled on his polysubstance abuse and he says he is seeking help. Severe protein calorie malnutrition: acute -BMI 14. -Patient very cachectic on exam with bitemporal wasting. -Give Ensure shakes with meals Lovenox for DVT prophylaxis Discharge Planning: Discharge pending further clinical improvement, cultures, GI eval, and clearance from ID. Will also need to wean off oxygen prior to discharge. Patient does not have insurance and arranging oxygen at home would be near impossible. Consider walk test prior to discharge.
--- NOTE | 2018-04-24 13:09 | P.CONGI ---
History of Present Illness Consult date: 04/24/18 Consult reason: Odynophagia, dysphagia with thrush, HIV positive Chief complaint: Hypoxic Respiratory Failure History of Present Illness: Mr. Landry is a 58-year-old male patient with a history of substance abuse, tobacco abuse. Surgical history includes hernia repair. Patient states he has been recently treated for pneumonia and relates recently diagnosed with HIV and thrush. States soreness in mouth with pain and difficulty swallowing onset 2 weeks ago. Patient states 2 weeks ago he began noticing pain and soreness on the roof of his mouth with difficulty swallowing, coughing, choking and spitting up saliva with meals. Patient states he felt as though food was "stuck" in chest region and epigastrium. Patient endorses increased incidences of heartburn for which he bought [id number] meds at the [facility] which were ineffective in controlling symptoms. Patient denies ever having had EGD or colonoscopy in the past. He denies any known family history of gastrointestinal diseases/ disorders. Patient presently wearing 3 L nasal cannula and does endorse shortness of breath on exertion. Patient denies any noted bleeding in stools and states that he has soft brown stools 1-2 times daily. At this time patient is being treated with nystatin, and Magic mouthwash along with Diflucan and reports symptoms seem to be improving slowly. <Tiny Elizalde - Last Filed: 04/24/18 12:50> Review of Systems All other systems reviewed negative except as stated in HPI <Tiny Elizalde - Last Filed: 04/24/18 12:50> PMFSH - History History Provided By: Patient - Medical History Medical History: Medical History (Last Reviewed 04/18/18 @ 08:53 by Billie Rollins) Spontaneous pneumothorax Tobacco abuse - Surgical History Surgical History: Surgical History (Last Reviewed 04/18/18 @ 08:53 by Billie Rollins) Hx of hernia repair - Family History Family History: Family History (Last Updated 04/13/18 @ 18:23 by Paris Morocho MD) Mother Diabetes - Tobacco History Second Hand Smoke Exposure: Yes Tobacco Use In Past 30 Days: Yes (7 cigarettes a day) Smoking Status: Current every day smoker Tobacco Type: Cigarettes - Alcohol History How Often Do You Have a Drink Containing Alcohol: 4 or more times a week - Substance Use History Substance History: Active Abuse - Substance Use Type Crack/Cocaine Type: cocaine/crack Status: Active Route Used: Inhalation Frequency: half a gram, twice a week Reason for Use: Feels Good - Travel History Recent Travel in the [place] Within the Last 8 Weeks: No Recent Travel Out of the Country Within the Last 8 Weeks: No - Immunization History Tetanus Immunization: >5 Years <Tiny Elizalde - Last Filed: 04/24/18 12:50> - Medical History Medical History: Medical History (Last Reviewed 04/18/18 @ 08:53 by Billie Rollins) Spontaneous pneumothorax Tobacco abuse - Surgical History Surgical History: Surgical History (Last Reviewed 04/18/18 @ 08:53 by Billie Rollins) Hx of hernia repair - Family History Family History: Family History (Last Updated 04/13/18 @ 18:23 by Paris Morocho MD) Mother Diabetes <Gerhard De La Rosa - Last Filed: 04/24/18 16:44> Medications and Allergies Active Medications: Active Medications Acetaminophen (Tylenol) 650 mg PO Q4H PRN PRN Reason: Headache, fever, pain 1-4 Last Admin: 04/24/18 07:59 Dose: 650 mg Al Hydroxide/Mg Hydroxide (Milk Of Magnesia Liq) 30 ml PO Q12H PRN PRN Reason: Mild Constipation Albuterol (Duoneb Neb (Prn)) 1 ampul NEB Q4HR NEB PRN PRN Reason: DYSPNEA Azithromycin (Zithromax) 500 mg PO DAILY [facility] Last Admin: 04/24/18 08:08 Dose: Not Given Bisacodyl (Dulcolax Supp) 10 mg RECTAL DAILY PRN PRN Reason: SEVERE CONSITIPATION Enoxaparin Sodium (Lovenox Inj) 40 mg SQ Q24H [facility] Last Admin: 04/23/18 20:21 Dose: 40 mg Fluconazole (Diflucan) 400 mg PO DAILY [facility] Last Admin: 04/24/18 08:08 Dose: Not Given Lactulose (Lactulose Liq) 30 ml PO DAILY PRN PRN Reason: SEVERE CONSITIPATION Methylprednisolone Sodium Succinate (Solumedrol Inj) 30 mg IV.PUSH Q12HR [facility] Last Admin: 04/24/18 08:01 Dose: 30 mg Multi-Ingredient Mouthwash/Gargle (Magic Mouthwash Adult Liq) 5 ml SWISH-SWAL QID [facility] Last Admin: 04/24/18 12:09 Dose: Not Given Nystatin (Mycostatin) 500,000 unit PO Q8HR [facility] Last Admin: 04/24/18 06:05 Dose: 500,000 unit Ondansetron HCl (Zofran Inj) 4 mg IV.PUSH Q6H PRN PRN Reason: NAUSEA OR VOMITING Senna/Docusate Sodium (Dona-Colace) 1 tab PO BID [facility] Last Admin: 04/24/18 08:08 Dose: Not Given Sennosides (Senokot) 17.2 mg PO Q12H PRN PRN Reason: Moderate Constipation Trimethoprim/Sulfamethoxazole (Bactrim Ds) 2 tab PO Q8HR [facility] Last Admin: 04/24/18 06:07 Dose: 2 tab <ElizaldeSarahy - Last Filed: 04/24/18 12:50> Active Medications: Active Medications Acetaminophen (Tylenol) 650 mg PO Q4H PRN PRN Reason: Headache, fever, pain 1-4 Last Admin: 04/24/18 07:59 Dose: 650 mg Al Hydroxide/Mg Hydroxide (Milk Of Magnesia Liq) 30 ml PO Q12H PRN PRN Reason: Mild Constipation Albuterol (Duoneb Neb (Prn)) 1 ampul NEB Q4HR NEB PRN PRN Reason: DYSPNEA Azithromycin (Zithromax) 500 mg PO DAILY [facility] Last Admin: 04/24/18 08:08 Dose: Not Given Bisacodyl (Dulcolax Supp) 10 mg RECTAL DAILY PRN PRN Reason: SEVERE CONSITIPATION Enoxaparin Sodium (Lovenox Inj) 40 mg SQ Q24H [facility] Last Admin: 04/23/18 20:21 Dose: 40 mg Fluconazole (Diflucan) 400 mg PO DAILY [facility] Last Admin: 04/24/18 08:08 Dose: Not Given Lactulose (Lactulose Liq) 30 ml PO DAILY PRN PRN Reason: SEVERE CONSITIPATION Methylprednisolone Sodium Succinate (Solumedrol Inj) 30 mg IV.PUSH Q12HR [facility] Last Admin: 04/24/18 08:01 Dose: 30 mg Multi-Ingredient Mouthwash/Gargle (Magic Mouthwash Adult Liq) 5 ml SWISH-SWAL QID [facility] Last Admin: 04/24/18 12:09 Dose: Not Given Nystatin (Mycostatin) 500,000 unit PO Q8HR [facility] Last Admin: 04/24/18 13:32 Dose: Not Given Ondansetron HCl (Zofran Inj) 4 mg IV.PUSH Q6H PRN PRN Reason: NAUSEA OR VOMITING Senna/Docusate Sodium (Dona-Colace) 1 tab PO BID [facility] Last Admin: 04/24/18 08:08 Dose: Not Given Sennosides (Senokot) 17.2 mg PO Q12H PRN PRN Reason: Moderate Constipation Trimethoprim/Sulfamethoxazole (Bactrim Ds) 2 tab PO Q8HR [facility] Last Admin: 04/24/18 13:27 Dose: Not Given <Gerhard De La Rosa E - Last Filed: 04/24/18 16:44> Allergies Allergy/AdvReac Type Severity Reaction Status Date / Time No Known Allergies Allergy Verified 04/18/18 08:47 Exam Vital signs: Vital Signs 04/23/18 16:00 04/23/18 20:00 04/24/18 00:00 Temperature 97.9 F 97.7 F 97.4 F L Pulse Rate 79 82 72 Respiratory Rate 18 18 18 Blood Pressure 150/98 H 147/94 H 149/94 H Pulse Oximetry 97 97 98 04/24/18 02:30 04/24/18 04:00 04/24/18 05:15 Temperature 97.9 F Pulse Rate 73 Respiratory Rate 18 18 17 Blood Pressure 153/95 H Pulse Oximetry 100 04/24/18 08:00 04/24/18 09:00 Temperature 97.6 F Pulse Rate 70 84 Respiratory Rate 16 Blood Pressure 152/94 H Pulse Oximetry 99 Intake & Output 04/23/18 04/24/18 04/24/18 18:59 06:59 18:59 Output Total 700 / 700 Balance -700 / -700 Weight 45.6 kg Output: Urine 700 / 700 Other: # Voids 1 Date of Last Bowel Movement 04/21/18 04/20/18 04/22/18 - Constitutional no acute distress, thin, cachectic, chronically ill appearing, cooperative - Routine HEENT Exam Head: Present: normocephalic ENT: Present: mucous membranes moist Comments: Thrush - Routine Neck Exam Present: supple - Routine Respiratory Exam Present: decreased breath sounds, CTA bilaterally. Absent: accessory muscle use Comments: O2 3 L nasal cannula - Routine Cardiovascular Exam Present: RRR - Routine Abdominal Exam Present: soft, normoactive bowel sounds. Absent: tenderness, distended, guarding, firm - Routine Extremities Exam Present: full ROM, pulses intact. Absent: edema - Routine Skin Exam Present: dry, warm - Routine Neurological Exam Present: alert, oriented X3 <Elizalde,Tiny - Last Filed: 04/24/18 12:50> Vital signs: Vital Signs 04/23/18 20:00 04/24/18 00:00 04/24/18 02:30 Temperature 97.7 F 97.4 F L Pulse Rate 82 72 Respiratory Rate 18 18 18 Blood Pressure 147/94 H 149/94 H Pulse Oximetry 97 98 04/24/18 04:00 04/24/18 05:15 04/24/18 08:00 Temperature 97.9 F 97.6 F Pulse Rate 73 70 Respiratory Rate 18 17 16 Blood Pressure 153/95 H 152/94 H Pulse Oximetry 100 99 04/24/18 09:00 04/24/18 12:00 Temperature 97.6 F Pulse Rate 84 77 Respiratory Rate 18 Blood Pressure 136/89 Pulse Oximetry 99 Intake & Output 04/23/18 04/24/18 04/24/18 18:59 06:59 18:59 Output Total 700 / 700 Balance -700 / -700 Weight 45.6 kg Output: Urine 700 / 700 Other: # Voids 1 Date of Last Bowel Movement 04/21/18 04/20/18 04/22/18 <Gerhard De La Rosa E - Last Filed: 04/24/18 16:44> Results - Labs CBC & Chem 7: 04/22/18 06:45 04/22/18 12:27 Labs: Laboratory Results - last 24 hr 04/21/18 04/21/18 15:22 15:22 Absolute Lymphocytes 599 L % CD3 Cells 62 Absolute CD3 Count 373 L % CD3-/CD16+/CD56+ 30 H Abs CD3-/CD16+/CD56+ 179 % CD4 Cells 5 L Absolute CD4 Count 30 L T-Help/Suppress Ratio 0.10 L % CD8 Cells 58 H Absolute CD8 Count 345 % CD19 Cells 8 Absolute CD19 Count 47 L M. pneumoniae Interp . Mycoplasma pneumon IgG Positive Mycoplasma pneumon IgM Negative <Tiny Elizalde - Last Filed: 04/24/18 12:50> - Labs CBC & Chem 7: 04/22/18 06:45 04/22/18 12:27 Labs: Laboratory Results - last 24 hr 04/21/18 15:22 Absolute Lymphocytes 599 L % CD3 Cells 62 Absolute CD3 Count 373 L % CD3-/CD16+/CD56+ 30 H Abs CD3-/CD16+/CD56+ 179 % CD4 Cells 5 L Absolute CD4 Count 30 L T-Help/Suppress Ratio 0.10 L % CD8 Cells 58 H Absolute CD8 Count 345 % CD19 Cells 8 Absolute CD19 Count 47 L <Gerhard De La Rosa - Last Filed: 04/24/18 16:44> Assessment and Plan (1) Dysphagia Status: Acute Code(s): R13.10 - Dysphagia, unspecified (2) Odynophagia Status: Acute Code(s): R13.10 - Dysphagia, unspecified - Plan Mr. Landry is a 58-year-old male patient with a history of substance abuse, tobacco abuse. Surgical history includes hernia repair. Patient states he has been recently treated for pneumonia and relates recently diagnosed with HIV and thrush. States soreness in mouth with pain and difficulty swallowing onset 2 weeks ago. Patient states 2 weeks ago he began noticing pain and soreness on the roof of his mouth with difficulty swallowing, coughing, choking and spitting up saliva with meals. Patient states he felt as though food was "stuck" in chest region and epigastrium. Patient endorses increased incidences of heartburn for which he bought [id number] meds at the [facility] which were ineffective in controlling symptoms. Patient denies ever having had EGD or colonoscopy in the past. He denies any known family history of gastrointestinal diseases/ disorders. Patient presently wearing 3 L nasal cannula and does endorse shortness of breath on exertion. Patient denies any noted bleeding in stools and states that he has soft brown stools 1-2 times daily. At this time patient is being treated with nystatin, and Magic mouthwash along with Diflucan and reports symptoms seem to be improving slowly. Dysphagia/odynophagia Patient reports 2-week history of difficulty swallowing and painful swallowing. Recent diagnosis of HIV with thrush. States feels as though food moves slowly. Will need EGD for further evaluation. Plan -Patient will require EGD for further evaluation -Continue Diflucan and Magic mouthwash -Supportive care -Further recommendations to follow based on patient status and findings This patient has been seen by myself and Dr. De La Rosa and this note is written on his behalf - Attending Attestation Dr. De La Rosa <Tiny Elizalde - Last Filed: 04/24/18 12:50> (1) Dysphagia Status: Acute Code(s): R13.10 - Dysphagia, unspecified (2) Odynophagia Status: Acute Code(s): R13.10 - Dysphagia, unspecified - Plan Patient seen and examined Agree with above Continue with current supportive care Monitor labs We will proceed with an upper endoscopy next <Gerhard De La Rosa - Last Filed: 04/24/18 16:44>
--- NOTE | 2018-04-24 14:39 | P.PNID ---
Subjective Remarks: Patient is a 58-year-old male, presented to the hospital complaining of shortness of breath associated with some chest pain. Patient was recently hospitalized April 13 and at that time he presented with 2-week history of shortness of breath cough. His chest x-ray showed bilateral interstitial infiltrate and some patchy infiltrate on the left lung. He was afebrile at that time, and his white count was normal. Patient was treated as pneumonia, and he had improvement and he was discharged to complete a total of 7 days of antibiotic for pneumonia. He was given Levaquin. Patient came back this time complaining of shortness of breath again and this time he is also complaining of some chest discomfort when he breathes. He has some cough but not really able to bring up any phlegm. Has not had any fever. Patient also complaining of some difficulty swallowing and pain with swallowing. He has had some nausea but no magdaleno vomiting. He denies any urinary complaints. His chest x-ray this time has shown some improvement in the infiltrates on the left lung. HIV testing was done and HIV 1 came back positive. His LDH is elevated. His white count was a little bit up and it is 11,000. CT of the chest did not show any significant change compared to his prior CT but except for the presence of pericardial effusion. 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 He has had problem with spontaneous pneumothorax, and actually in 2011 he underwent VATS procedure with right upper lobe bullectomy, and partial pleurectomy. He has not really followed up with any cook dinner. Patient denies any sexual contact with known HIV patients. He denies any history of STD. He has never been in [facility]. He denies IV drug use but does smoke crack cocaine. Patient has been tested HIV negative back in 2006. He has no prior history of exposure to tuberculosis or having a diagnosis of tuberculosis. Patient also has had significant weight loss recently. Infectious disease consultation has been requested to evaluate the patient with no HIV positive disease and possible PCP. Notes reviewed Temps ok For EGD today Still with odynophagia, got worse last night CD4 30 Mycoplasma - old infection TB quantiferon negative MTB PCR negative Antibiotics: Bactrim Diflucan 400 Lines: PIV Past Medical History: Bullous emphysema with blebs Hx VATS procedure with RUL bullectomy and partial pleurectomy Spontaneous pneumothorax Tobacco abuse Hx of hernia repair Allergies/Adverse Reactions: Allergies No Known Allergies Allergy (Verified 04/18/18 08:47) Objective Vital Signs 04/23/18 16:00 04/23/18 20:00 04/24/18 00:00 Temperature 97.9 F 97.7 F 97.4 F L Pulse Rate 79 82 72 Respiratory Rate 18 18 18 Blood Pressure 150/98 H 147/94 H 149/94 H Pulse Oximetry 97 97 98 04/24/18 02:30 04/24/18 04:00 04/24/18 05:15 Temperature 97.9 F Pulse Rate 73 Respiratory Rate 18 18 17 Blood Pressure 153/95 H Pulse Oximetry 100 04/24/18 08:00 04/24/18 09:00 04/24/18 12:00 Temperature 97.6 F 97.6 F Pulse Rate 70 84 77 Respiratory Rate 16 18 Blood Pressure 152/94 H 136/89 Pulse Oximetry 99 99 Intake & Output 04/23/18 04/24/18 04/24/18 18:59 06:59 18:59 Output Total 700 / 700 Balance -700 / -700 Weight 45.6 kg Output: Urine 700 / 700 Other: # Voids 1 Date of Last Bowel Movement 04/21/18 04/20/18 04/22/18 04/18/18 08:50 Blood - Peripheral Aerobic Blood Culture - Final No growth in 5 days 04/18/18 08:50 Blood - Peripheral Anaerobic Blood Culture - Final No growth in 5 days 04/18/18 08:55 Blood - Peripheral Aerobic Blood Culture - Final No growth in 5 days 04/18/18 08:55 Blood - Peripheral Anaerobic Blood Culture - Final No growth in 5 days 04/19/18 17:48 Sputum - Expectorated Sputum Acid Fast Bacilli Smear - Final No acid fast bacilli seen 04/19/18 17:48 Sputum - Expectorated Sputum Mycobacterial Culture - Pending 04/19/18 17:48 Sputum - Expectorated Sputum Gram Stain - Final 04/19/18 17:48 Sputum - Expectorated Sputum Sputum Culture - Final Heavy growth normal respiratory asa Imaging: ITS Impressions Chest X-Ray 04/18/18 08:48 CONCLUSION: 1. Persistent diffuse interstitial prominence with improved patchy bilateral groundglass opacities. Although improved in comparison to most recent exam, overall abnormalities are new since more remote 2016 exam. Differential considerations again include interval drug reaction or inhalational exposure with improving superimposed airspace disease/infection. Chest CT 04/20/18 00:00 CONCLUSION: 1. Interval development of moderate-sized pericardial effusion. 2. Persistent diffuse interstitial lung disease with scattered emphysematous changes. 3. Interval development of minimal nodular infiltrate within the right lower lobe posteriorly. 4. Coronary artery calcifications. Physical Exam: GENERAL: awake and alert, not in respiratory distress. SKIN: Cool and dry. No generalized rash, no ecchymoses and no evidence of embolic lesions. HEAD: Atraumatic. Normocephalic. No temporal wasting, or tenderness. EYES: [place] conjunctiva. No petechia or hemorrhage. Pupils equal, round and reactive to light. Extraocular movements full and intact. No scleral icterus. No injection or drainage. EARS, NOSE AND THROAT: Nose without bleeding or purulent nasal discharge. No sinus tenderness. Mucous membranes moist. Oral thrush in buccal mucosa resolved, still with some white coating on tongue, better. NECK: Trachea midline. Supple and not tender, no meningeal signs CARDIOVASCULAR: Regular rate and rhythm. No murmurs, rubs or gallops heard RESPIRATORY: poor air movement ABDOMEN: Soft, flat, non-tender, nondistended. Bowel sounds present and normoactive. No guarding. No rebound. No organomegaly. EXTREMITIES: No clubbing, cyanosis, or edema.No joint effusion, has good ROM. No calf tenderness. NEUROLOGICAL: Awake and alert. Cranial nerves grossly intact. Motor grossly within normal limits. PSYCHIATRIC: Normal affect, calm and cooperative. LINE: No evidence of infection Assessment and Plan - Plan Impression SOB, cough, has bilateral interstitial infiltrates, new HIV, suspicious for PCP Has known bullous emphysema, with a lot of blebs in upper lobes Weight loss Odynophagia, ?che esophagitis, has bad oral thrush - ?other etiology Recommendation Continue Bactrim and Steroids Continue high dose Diflucan Continue zithromax Await atypical serologies Follow C/S Monitor progress For EGD D/W RN
[2018-04-24] MEDS ORDERED: Lidocaine PF 1% Inj 5 ML Syringe OTHER ONE (15:15)
--- NOTE | 2018-04-24 16:50 | P.PCN ---
Date of procedure: 04/24/18 Pre-op diagnosis: Dysphagia, odynophagia Procedure: PROCEDURE PERFORMED EGD with biopsies PROCEDURE: The procedure, risks and benefits were discussed with Patient/POA and informed consent was obtained. Anesthesia sedated Patient with Diprivan. Patient was placed in the left lateral decubitus position. EGD: The Pentax videoscope was introduced through the oropharynx and advanced to the second portion of the duodenum under direct visualization. Retroflexion was performed in the stomach. FINDINGS: The esophagus there was friable erythemic mucosa from top to bottom of unclear significance biopsies were taken for further evaluation The stomach the gastric mucosa appeared to be somewhat edematous and erythemic with 2 ulcerations one near the cardia small superficial no visible vessel the other in the pyloric channel deeper clean base no visible vessel both were biopsied otherwise unremarkable The duodenum this was normal ESTIMATED BLOOD LOSS: None SPECIMENS REMOVED: Gastric and esophageal biopsies COMPLICATIONS: None IMPRESSION: Esophagitis Gastric ulcers and gastritis PLAN: Await biopsies Recommend Protonix 40 mg twice daily EGD in 2 months Avoid NSAIDs and aspirin Okay to advance diet at this point Anesthesia: MAC Surgeon: Gerhard De La Rosa Condition: stable Disposition: floor
[2018-04-25] MEDS: Acetaminophen 325 MG Tablet PO PRN (08:36)
[2018-04-25] MEDS: Azithromycin 250 MG Tablet PO SCH (08:36)
[2018-04-25] MEDS: predniSONE 20 MG Tablet PO SCH ×2 (08:37→21:11)
[2018-04-25] MEDS: Nystatin/Diphenhydramine/Lidocaine Mouthwash (Adult) 120 ML Botttle SWISH-SWAL SCH ×4 (08:37→21:12)
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
[2018-04-25 08:45] LABS: Baso % (Auto) 0.3 % (0.0-2.0); Hemoglobin 12.6 gm/dL (13.0-17.0); Lymph # (Auto) 0.3 th/mm3 (1.0-4.8); Lymph % (Auto) 4.3 % (9.0-44.0); Mean Corpuscular HGB Conc 31.5 % (32.0-36.0); Mean Corpuscular Hemoglobin 22.7 pg (27.0-34.0); Mean Corpuscular Volume 72.2 fL (80.0-100.0); Mean Platelet Volume 7.8 fL (7.0-11.0); Mono # (Auto) 0.2 th/mm3 (0.0-0.9); Mono % (Auto) 3.8 % (0.0-8.0); Neut # (Auto) 5.3 th/mm3 (1.8-7.7); Neut % (Auto) 91.6 % (16.0-70.0); Platelet Count 381 th/mm3 (150-450); Red Blood Count 5.53 mil/mm3 (4.50-5.90); Red Cell Distribution Width 15.3 % (11.6-17.2); White Blood Count 5.8 th/mm3 (4.0-11.0)
[2018-04-25 09:12] LABS: Calcium 9.5 mg/dL (8.5-10.1); Potassium 5.9 meq/L (3.5-5.1)
--- NOTE | 2018-04-25 12:17 | P.PNGI ---
Subjective Interval history: Pt is resting in bed. States still having difficulty swallowing food and pain with swallowing. discussed EGD findings, advised pt to take small bites, chew completely and drink a lot of liquid in between bites. Advised to stick with soft foods and advance as tolerated. denies nausea, vomiting, abdominal pain. <Lynne Britton - Last Filed: 04/25/18 12:05> Physical Exam Vital signs: Vital Signs 04/24/18 16:46 04/24/18 17:00 04/24/18 17:15 Temperature 96.8 F L Pulse Rate 80 80 83 Respiratory Rate 20 20 18 Blood Pressure 116/82 139/91 H 147/93 H Pulse Oximetry 95 95 95 04/24/18 17:30 04/24/18 20:00 04/25/18 00:00 Temperature 97.4 F L 97.8 F 97.5 F L Pulse Rate 84 84 75 Respiratory Rate 22 20 20 Blood Pressure 144/94 H 134/97 H 152/99 H Pulse Oximetry 95 99 04/25/18 03:55 04/25/18 04:00 04/25/18 04:18 Temperature 97.8 F Pulse Rate 66 68 Respiratory Rate 18 18 Blood Pressure 118/70 Pulse Oximetry 100 04/25/18 08:00 Temperature 97.4 F L Pulse Rate 77 Respiratory Rate 18 Blood Pressure 138/90 Pulse Oximetry 100 Intake & Output 04/24/18 04/25/18 04/25/18 18:59 06:59 18:59 Intake Total 50 / 50 Output Total 0 / 0 400 / 400 Balance 50 / 50 -400 / -400 Intake: Oral 0 / 0 Anesthesia Amount 50 / 50 Output: Urine 0 / 0 400 / 400 Other: # Voids 1 Date of Last Bowel Movement 04/22/18 04/22/18 - Constitutional no acute distress, thin - Routine HEENT Exam Head: Present: normocephalic, atraumatic - Routine Respiratory Exam Absent: accessory muscle use - Routine Abdominal Exam Present: soft, normoactive bowel sounds. Absent: tenderness, distended - Routine Skin Exam Present: dry, warm - Routine Neurological Exam Present: alert, oriented X3 <Lynne Britton - Last Filed: 04/25/18 12:05> Vital signs: Vital Signs 04/25/18 00:00 04/25/18 03:55 04/25/18 04:00 Temperature 97.5 F L 97.8 F Pulse Rate 75 66 68 Respiratory Rate 20 18 Blood Pressure 152/99 H 118/70 Pulse Oximetry 100 04/25/18 04:18 04/25/18 08:00 04/25/18 12:00 Temperature 97.4 F L 97.6 F Pulse Rate 77 80 Respiratory Rate 18 18 20 Blood Pressure 138/90 134/92 H Pulse Oximetry 100 99 04/25/18 16:00 Temperature 97.3 F L Pulse Rate 78 Respiratory Rate 16 Blood Pressure 151/90 H Pulse Oximetry 100 Intake & Output 04/25/18 04/25/18 04/26/18 06:59 18:59 06:59 Output Total 400 / 400 Balance -400 / -400 Output: Urine 400 / 400 Other: # Voids 1 Date of Last Bowel Movement 04/22/18 <Gerhard De La Rosa E - Last Filed: 04/25/18 21:28> Results - Labs CBC & Chem 7: 04/25/18 06:06 04/25/18 06:06 Laboratory Results - last 24 hr 04/21/18 04/25/18 04/25/18 15:22 06:06 06:06 WBC 5.8 RBC 5.53 Hgb 12.6 L Hct 40.0 MCV 72.2 L MCH 22.7 L MCHC 31.5 L RDW 15.3 Plt Count 381 MPV 7.8 Neut % (Auto) 91.6 H Lymph % (Auto) 4.3 L [place] % (Auto) 3.8 Eos % (Auto) 0.0 Baso % (Auto) 0.3 Neut # (Auto) 5.3 Lymph # (Auto) 0.3 L [place] # (Auto) 0.2 Eos # (Auto) 0.0 Baso # (Auto) 0.0 WBC Differential . Differential Comment Auto diff final Sodium 129 L Potassium 5.9 H Chloride 95 L Carbon Dioxide 23.0 Anion Gap 11 BUN 64 H Creatinine 2.04 H Estimated GFR 41 L Random Glucose 103 Calcium 9.5 C. pneumoniae IgG Titer <1:64 C. pneumoniae IgA Titer <1:16 C. pneumoniae IgM Titer <1:10 C. pneumoniae Ab Interp - Procedures 04/24/18 - EGD by Dr. De La Rosa showed friable esophagitis, gastric ulcers, gastritis. <Lynne Britton - Last Filed: 04/25/18 12:05> - Labs CBC & Chem 7: 04/25/18 06:06 04/25/18 16:50 Laboratory Results - last 24 hr 04/21/18 04/25/18 04/25/18 15:22 06:06 06:06 WBC 5.8 RBC 5.53 Hgb 12.6 L Hct 40.0 MCV 72.2 L MCH 22.7 L MCHC 31.5 L RDW 15.3 Plt Count 381 MPV 7.8 Neut % (Auto) 91.6 H Lymph % (Auto) 4.3 L [place] % (Auto) 3.8 Eos % (Auto) 0.0 Baso % (Auto) 0.3 Neut # (Auto) 5.3 Lymph # (Auto) 0.3 L [place] # (Auto) 0.2 Eos # (Auto) 0.0 Baso # (Auto) 0.0 WBC Differential . Differential Comment Auto diff final Sodium 129 L Potassium 5.9 H Chloride 95 L Carbon Dioxide 23.0 Anion Gap 11 BUN 64 H Creatinine 2.04 H Estimated GFR 41 L Random Glucose 103 Calcium 9.5 C. pneumoniae IgG Titer <1:64 C. pneumoniae IgA Titer <1:16 C. pneumoniae IgM Titer <1:10 C. pneumoniae Ab Interp 04/25/18 16:50 WBC RBC Hgb Hct MCV MCH MCHC RDW Plt Count MPV Neut % (Auto) Lymph % (Auto) [place] % (Auto) Eos % (Auto) Baso % (Auto) Neut # (Auto) Lymph # (Auto) [place] # (Auto) Eos # (Auto) Baso # (Auto) WBC Differential Differential Comment Sodium 130 L Potassium 5.9 H Chloride 96 L Carbon Dioxide 21.8 Anion Gap 12 BUN 68 H Creatinine 2.42 H Estimated GFR 34 L Random Glucose 104 Calcium 9.6 C. pneumoniae IgG Titer C. pneumoniae IgA Titer C. pneumoniae IgM Titer C. pneumoniae Ab Interp - Imaging Impressions Abdomen/Bladder Ultrasound 04/25/18 00:00 CONCLUSION: 1. Kidneys are echogenic which can be seen with medical renal disease. 2. Minimally complex right renal cyst. Chest X-Ray 04/25/18 00:00 CONCLUSION: Hyperinflation with no acute cardiopulmonary process. <Gerhard De La Rosa - Last Filed: 04/25/18 21:28> Assessment and Plan (1) Dysphagia Status: Acute Code(s): R13.10 - Dysphagia, unspecified (2) Odynophagia Status: Acute Code(s): R13.10 - Dysphagia, unspecified - Plan Assessment: - Dysphagia/odynophagia S/P EGD --> Esophagitis, gastric ulcer and gastritis. Biopsy pending. - Recent diagnosis of HIV, currently with thrush Plan: EGD biopsy pending Protonix BID Soft food, advance as tolerated Small bites, chew completely Advised on water between bites Magic mouthwash/Nystatin for thrush Our service will sign off, please reconsult as needed Have pt follow up with GI after DC Pt has been seen and examined by myself and Dr. De La Rosa and this note is written on his behalf <Lynne Britton - Last Filed: 04/25/18 12:05> (1) Dysphagia Status: Acute Code(s): R13.10 - Dysphagia, unspecified (2) Odynophagia Status: Acute Code(s): R13.10 - Dysphagia, unspecified - Plan Patient seen and examined Agree with above Continue with current supportive care Monitor labs <Gerhard De La Rosa - Last Filed: 04/25/18 21:28>
--- NOTE | 2018-04-25 13:12 | P.PNID ---
Subjective Remarks: Patient is a 58-year-old male, presented to the hospital complaining of shortness of breath associated with some chest pain. Patient was recently hospitalized April 13 and at that time he presented with 2-week history of shortness of breath cough. His chest x-ray showed bilateral interstitial infiltrate and some patchy infiltrate on the left lung. He was afebrile at that time, and his white count was normal. Patient was treated as pneumonia, and he had improvement and he was discharged to complete a total of 7 days of antibiotic for pneumonia. He was given Levaquin. Patient came back this time complaining of shortness of breath again and this time he is also complaining of some chest discomfort when he breathes. He has some cough but not really able to bring up any phlegm. Has not had any fever. Patient also complaining of some difficulty swallowing and pain with swallowing. He has had some nausea but no magdaleno vomiting. He denies any urinary complaints. His chest x-ray this time has shown some improvement in the infiltrates on the left lung. HIV testing was done and HIV 1 came back positive. His LDH is elevated. His white count was a little bit up and it is 11,000. CT of the chest did not show any significant change compared to his prior CT but except for the presence of pericardial effusion. 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 He has had problem with spontaneous pneumothorax, and actually in 2011 he underwent VATS procedure with right upper lobe bullectomy, and partial pleurectomy. He has not really followed up with any escrow clerk. Patient denies any sexual contact with known HIV patients. He denies any history of STD. He has never been in intermediate. He denies IV drug use but does smoke crack cocaine. Patient has been tested HIV negative back in 2006. He has no prior history of exposure to tuberculosis or having a diagnosis of tuberculosis. Patient also has had significant weight loss recently. Infectious disease consultation has been requested to evaluate the patient with no HIV positive disease and possible PCP. Notes reviewed Temps ok EGD showed esophagitis, gastritis and gastric ulcers PCP stain negative Creatinine jumped to 2.04 this morning Still with odynophagia CD4 30 Mycoplasma - old infection Chlamydia negative TB quantiferon negative MTB PCR negative Antibiotics: Bactrim Diflucan 400 Zithromax Lines: PIV Past Medical History: Bullous emphysema with blebs Hx VATS procedure with RUL bullectomy and partial pleurectomy Spontaneous pneumothorax Tobacco abuse Hx of hernia repair Allergies/Adverse Reactions: Allergies No Known Allergies Allergy (Verified 04/18/18 08:47) Objective Vital Signs 04/24/18 16:46 04/24/18 17:00 04/24/18 17:15 Temperature 96.8 F L Pulse Rate 80 80 83 Respiratory Rate 20 20 18 Blood Pressure 116/82 139/91 H 147/93 H Pulse Oximetry 95 95 95 04/24/18 17:30 04/24/18 20:00 04/25/18 00:00 Temperature 97.4 F L 97.8 F 97.5 F L Pulse Rate 84 84 75 Respiratory Rate 22 20 20 Blood Pressure 144/94 H 134/97 H 152/99 H Pulse Oximetry 95 99 04/25/18 03:55 04/25/18 04:00 04/25/18 04:18 Temperature 97.8 F Pulse Rate 66 68 Respiratory Rate 18 18 Blood Pressure 118/70 Pulse Oximetry 100 04/25/18 08:00 04/25/18 12:00 Temperature 97.4 F L 97.6 F Pulse Rate 77 80 Respiratory Rate 18 20 Blood Pressure 138/90 134/92 H Pulse Oximetry 100 99 Intake & Output 04/24/18 04/25/18 04/25/18 18:59 06:59 18:59 Intake Total 50 / 50 Output Total 0 / 0 400 / 400 Balance 50 / 50 -400 / -400 Intake: Oral 0 / 0 Anesthesia Amount 50 / 50 Output: Urine 0 / 0 400 / 400 Other: # Voids 1 Date of Last Bowel Movement 04/22/18 04/22/18 04/18/18 08:50 Blood - Peripheral Aerobic Blood Culture - Final No growth in 5 days 04/18/18 08:50 Blood - Peripheral Anaerobic Blood Culture - Final No growth in 5 days 04/18/18 08:55 Blood - Peripheral Aerobic Blood Culture - Final No growth in 5 days 04/18/18 08:55 Blood - Peripheral Anaerobic Blood Culture - Final No growth in 5 days 04/19/18 17:48 Sputum - Expectorated Sputum Acid Fast Bacilli Smear - Final No acid fast bacilli seen 04/19/18 17:48 Sputum - Expectorated Sputum Mycobacterial Culture - Pending 04/19/18 17:48 Sputum - Expectorated Sputum Gram Stain - Final 04/19/18 17:48 Sputum - Expectorated Sputum Sputum Culture - Final Heavy growth normal respiratory asa Lab - Hematology Results 04/25/18 06:06 WBC 5.8 RBC 5.53 Hgb 12.6 L Hct 40.0 MCV 72.2 L MCH 22.7 L MCHC 31.5 L RDW 15.3 Plt Count 381 MPV 7.8 Neut % (Auto) 91.6 H Lymph % (Auto) 4.3 L [place] % (Auto) 3.8 Eos % (Auto) 0.0 Baso % (Auto) 0.3 Neut # (Auto) 5.3 Lymph # (Auto) 0.3 L [place] # (Auto) 0.2 Eos # (Auto) 0.0 Baso # (Auto) 0.0 WBC Differential . Differential Comment Auto diff final Lab - Chemistry Results 04/25/18 06:06 Sodium 129 L Potassium 5.9 H Chloride 95 L Carbon Dioxide 23.0 Anion Gap 11 BUN 64 H Creatinine 2.04 H Estimated GFR 41 L Random Glucose 103 Calcium 9.5 Imaging: ITS Impressions Chest X-Ray 04/18/18 08:48 CONCLUSION: 1. Persistent diffuse interstitial prominence with improved patchy bilateral groundglass opacities. Although improved in comparison to most recent exam, overall abnormalities are new since more remote 2016 exam. Differential considerations again include interval drug reaction or inhalational exposure with improving superimposed airspace disease/infection. Chest CT 04/20/18 00:00 CONCLUSION: 1. Interval development of moderate-sized pericardial effusion. 2. Persistent diffuse interstitial lung disease with scattered emphysematous changes. 3. Interval development of minimal nodular infiltrate within the right lower lobe posteriorly. 4. Coronary artery calcifications. Physical Exam: GENERAL: awake and alert, not in respiratory distress. SKIN: Cool and dry. No generalized rash, no ecchymoses and no evidence of embolic lesions. HEAD: Atraumatic. Normocephalic. No temporal wasting, or tenderness. EYES: [place] conjunctiva. No petechia or hemorrhage. Pupils equal, round and reactive to light. Extraocular movements full and intact. No scleral icterus. No injection or drainage. EARS, NOSE AND THROAT: Nose without bleeding or purulent nasal discharge. No sinus tenderness. Mucous membranes moist. Oral thrush in buccal mucosa resolved, still with some white coating on tongue, better. NECK: Trachea midline. Supple and not tender, no meningeal signs CARDIOVASCULAR: Regular rate and rhythm. No murmurs, rubs or gallops heard RESPIRATORY: poor air movement ABDOMEN: Soft, flat, non-tender, nondistended. Bowel sounds present and normoactive. No guarding. No rebound. No organomegaly. EXTREMITIES: No clubbing, cyanosis, or edema.No joint effusion, has good ROM. No calf tenderness. NEUROLOGICAL: Awake and alert. Cranial nerves grossly intact. Motor grossly within normal limits. PSYCHIATRIC: Normal affect, calm and cooperative. LINE: No evidence of infection Assessment and Plan - Plan Impression SOB, cough, has bilateral interstitial infiltrates, new HIV, suspicious for PCP Has known bullous emphysema, with a lot of blebs in upper lobes Weight loss Odynophagia, ?che esophagitis, has bad oral thrush - ?other etiology Acute rise in creatinine, etiology? - concern with bactrim Recommendation Continue Steroids Hold Bactrim Check UA and urine eos Continue high dose Diflucan Continue zithromax Repeat BMP Repeat CXR Follow C/S Monitor progress Renal US to eval obstruction
--- NOTE | 2018-04-25 13:23 | P.DIET ---
Nutritional Evaluation Type of nutrition evaluation: initial Nutrition screening: [facility] [place] [facility] (Malnutrition) Subjective Subjective Comments: Per Drs note: The patient is s/p EGD yesterday 04/24 which showed friable esophagitis, gastric ulcers, and gastritis. He reports continued odynophagia and dysphagia today. He reports minimal oral intake and lack of appetite, although looking forward to trying his eggs and pancake this morning. No bowel movement since Sunday, 4 days ago. Objective - Diagnosis Hypoxic Respiratory Failure - Objective % IBW: 63 (IBW = 160#) Body Weight Used for Calculations: Actual (45.6 kg) Energy Needs - Lower Range (kCal/kg): 35 Energy Needs - Upper Range (kCal/kg): 40 Lower Limit kCal/kg (kCals): 1,596 Upper Limit kCal/kg (kCals): 1,824 Lower Limit Protein Factor (Grams per Kg): 1.5 Upper Limit Protein Factor (Grams per Kg): 2.0 Lower Protein Needs (Protein): 68 Upper Protein Needs (Protein): 91 Dietitian Reviewed in Medical Record: Current diet, Curent medications, Intake & Output, Labs, Medical history Diet Order: Cardiac, Soft Objective Comments: Hx includes positive HIV and thrush Assessment Assessment: Pt is at high nutrition risk 2' to dx, poor po intake, poor appetite and low wt for ht with a BMI of 14.8. Will change Ensure to Ensure Enlive for added nutrition: each 8 oz serving provides 350 kcals and 20 gms protein. Will also send Ensure pudding at lunch and dinner. Pt may also benefit from an appetite stimulant like marinol and a daily MVI/min. RD following. Recommendations: 1. Diet as ordered 2. Ensure Enlive tid and Ensure Pudding bid 3. Please order MVI/min 4. Consider Marinol Dietitian to Monitor: Lab values, Supplement acceptance, Intake & Output, Diet tolerance, Weight change, PO Intake, Swallow recommendations, Medical course
[2018-04-25] MEDS: Senna/Docusate Sodium 8.6/50 MG Tablet PO SCH ×2 (13:54→21:11)
[2018-04-25] MEDS ORDERED: Sodium Polystyrene Sulfonate/Sorbitol Liq 15 GM/60 ML UDC PO ONE (14:57)
--- NOTE | 2018-04-25 15:08 | XR ---
EXAM DATE: 04/25/2018 3:02 PM EDT AGE/SEX: 58 years / Male INDICATIONS: . Short of breath CLINICAL DATA: This is the patient's subsequent encounter. Patient reports that signs and symptoms h ave been present for 2 weeks and indicates a pain score of 0/10. MEDICAL/SURGICAL HISTORY: . Respiratory failure Inguinal hernia repair. COMPARISON: [facility] [place], CHEST 1V SINGLE AP, 04/18/2018. . FINDINGS: AP and lateral views of the chest demonstrate the lungs to be symmetrically hyper aerated without mini dence of mass, infiltrate or effusion. The cardiomediastinal contours are unremarkable. Osseous str uctures are intact. CONCLUSION: Hyperinflation with no acute cardiopulmonary process. Electronically signed by: Bhargav Zelaya MD 04/25/2018 3:06 PM EDT
[2018-04-25] MEDS: Sod Chloride 0.9% Inj 1,000 ML IV.CONT SCH (16:04)
--- NOTE | 2018-04-25 16:45 | US ---
EXAM DATE: 04/25/2018 4:41 PM EDT AGE/SEX: 58 years / Male INDICATIONS: Increased BUN. CLINICAL DATA: This is the patient's initial encounter. Patient reports that signs and symptoms have been present for 1 day and indicates a pain score of 0/10. MEDICAL/SURGICAL HISTORY: . Spontaneous pneumothorax. Tobacco abuse. . Hernia repair. COMPARISON: No prior exams available for comparison. MEASUREMENTS: Right Kidney:__9.6 x 4.8 x 4.2 cm Left Kidney:__10.7 x 3.6 x 5.8 cm FINDINGS: Right Kidney: Increased echotexture. No mass or hydronephrosis. Minimally complex cyst in the mid kid dale measures 17 x 18 x 15 mm. Left Kidney: Increased echotexture. No mass or hydronephrosis. Bladder: Within normal limits given the degree of distension. Other: None. CONCLUSION: 1. Kidneys are echogenic which can be seen with medical renal disease. 2. Minimally complex right renal cyst. Electronically signed by: Lai Clements MD 04/25/2018 4:44 PM EDT
[2018-04-25 17:36] LABS: Calcium 9.6 mg/dL (8.5-10.1); Carbon Dioxide 21.8 meq/L (21.0-32.0); Potassium 5.9 meq/L (3.5-5.1)
[2018-04-25] MEDS: Enoxaparin Inj 40 MG/0.4 ML Syringe SQ SCH (21:11)
[2018-04-25 21:58] LABS: Bilirubin,Urine Negative (Negative); Clarity,Urine Turbid (Clear); Color,Urine Yellow (Yellw/Straw); Glucose,Urine (UA) Negative (Negative); Hyaline Casts,Urine 4 /lpf (0-3); Leukocyte Esterase,Urine Negative (Negative); Nitrite,Urine Negative (Negative); Squamous Epithelial Cell,Urine 1 /hpf (0-5); Uric Acid Crystals,Urine Many /hpf
[2018-04-25 23:23] LABS: Calcium 9.2 mg/dL (8.5-10.1); Carbon Dioxide 23.7 meq/L (21.0-32.0); Potassium 5.3 meq/L (3.5-5.1)
[2018-04-26] MEDS: Sod Chloride 0.9% Inj 1,000 ML IV.CONT SCH ×3 (00:53→23:22)
[2018-04-26 07:28] LABS: Calcium 8.6 mg/dL (8.5-10.1); Carbon Dioxide 24.2 meq/L (21.0-32.0)
[2018-04-26] MEDS ORDERED: Influenza (Quadrivalent) Vaccine 0.5 ML Syringe IM ONE (09:00)
[2018-04-26] MEDS: Azithromycin 250 MG Tablet PO SCH (09:19)
[2018-04-26] MEDS: Senna/Docusate Sodium 8.6/50 MG Tablet PO SCH ×2 (09:19→22:54)
[2018-04-26] MEDS: predniSONE 20 MG Tablet PO SCH ×2 (09:19→22:53)
[2018-04-26] MEDS: Nystatin/Diphenhydramine/Lidocaine Mouthwash (Adult) 120 ML Botttle SWISH-SWAL SCH ×4 (09:19→22:53)
--- NOTE | 2018-04-26 09:19 | P.PN ---
Subjective Interval history: Follow-up acute hypoxic respiratory failure/newly diagnosed HIV April 26, 2018-patient seen and examined, still complains of shortness of breath and currently on 3 L nasal cannula. Also complains of heartburn. Afebrile. Physical Exam Vital signs: Vital Signs 04/25/18 12:00 04/25/18 16:00 04/25/18 20:00 Temperature 97.6 F 97.3 F L 97.6 F Pulse Rate 80 78 73 Respiratory Rate 20 16 18 Blood Pressure 134/92 H 151/90 H 129/85 Pulse Oximetry 99 100 98 04/25/18 20:54 04/26/18 00:00 04/26/18 03:00 Temperature 97.5 F L Pulse Rate 73 69 Respiratory Rate 18 Blood Pressure 140/87 Pulse Oximetry 94 L 98 04/26/18 05:39 04/26/18 07:35 Temperature 98.4 F 97.4 F L Pulse Rate 75 68 Respiratory Rate 18 18 Blood Pressure 126/88 129/78 Pulse Oximetry 99 100 Intake & Output 04/25/18 04/26/18 04/26/18 18:59 06:59 18:59 Intake Total 900 / 900 Output Total 950 / 950 Balance -50 / -50 Intake: IV 900 / 900 NS Inj 1,000 ML @ 100 mls/hr IV 900 / 900 .CONT .Q10H STEVIE Rx#:[id number] Output: Urine 950 / 950 Other: # Voids 4 Date of Last Bowel Movement 04/22/18 Narrative: GENERAL: Thin cachectic appearing AA male patient in [facility]. SKIN: Warm and dry. No rash. HEENT: Normocephalic. Atraumatic. Bitemporal wasting. Pupils equal and round. Mucous membranes pink and moist. Tongue and buccal mucosa with mild white plaques, minimal erythema, improving. CARDIOVASCULAR: Regular rate and rhythm. No murmur appreciated. RESPIRATORY: No accessory muscle use. Some faint coarse breath sounds, otherwise clear to auscultation. Breath sounds equal bilaterally. GASTROINTESTINAL: Scaphoid abdomen, soft, non-tender, nondistended. Normoactive bowel sounds x4. MUSCULOSKELETAL: No obvious deformities. Extremities without clubbing, cyanosis , or edema. NEUROLOGICAL: Awake and alert. No obvious cranial nerve deficits. Motor grossly within normal limits. Moving all extremities spontaneously. Normal speech. PSYCHIATRIC: Appropriate mood and affect; insight and judgment normal. Results - Labs CBC & Chem 7: 04/25/18 06:06 04/26/18 06:16 Laboratory Results - last 24 hr 04/25/18 04/25/18 04/25/18 16:50 20:45 20:45 Sodium 130 L Potassium 5.9 H Chloride 96 L Carbon Dioxide 21.8 Anion Gap 12 BUN 68 H Creatinine 2.42 H Estimated GFR 34 L Random Glucose 104 Calcium 9.6 Urine Color Yellow Urine Clarity Turbid H Urine pH 5.0 Ur Specific Scott 1.020 Urine Protein Negative Urine Glucose (UA) Negative Urine Ketones Negative Urine Occult Blood Negative Urine Nitrate Negative Urine Bilirubin Negative Urine Urobilinogen Less than 2 Ur Leukocyte Esterase Negative Urine WBC 3 Ur Squamous Epith Cells 1 Uric Acid Crystals Many H Hyaline Casts 4 Ur Microscopic Review Not Reportable Urine Eosinophils None seen 04/25/18 04/26/18 22:43 06:16 Sodium 133 L 132 L Potassium 5.3 H 5.0 Chloride 101 100 Carbon Dioxide 23.7 24.2 Anion Gap 8 8 BUN 64 H 51 H Creatinine 2.03 H 1.75 H Estimated GFR 41 L 49 L Random Glucose 115 H 98 Calcium 9.2 8.6 Urine Color Urine Clarity Urine pH Ur Specific Scott Urine Protein Urine Glucose (UA) Urine Ketones Urine Occult Blood Urine Nitrate Urine Bilirubin Urine Urobilinogen Ur Leukocyte Esterase Urine WBC Ur Squamous Epith Cells Uric Acid Crystals Hyaline Casts Ur Microscopic Review Urine Eosinophils - Imaging Impressions Abdomen/Bladder Ultrasound 04/25/18 00:00 CONCLUSION: 1. Kidneys are echogenic which can be seen with medical renal disease. 2. Minimally complex right renal cyst. Chest X-Ray 04/25/18 00:00 CONCLUSION: Hyperinflation with no acute cardiopulmonary process. - Procedures 04/24/18 - EGD by Dr. De La Rosa showed friable esophagitis, gastric ulcers, gastritis. Assessment and Plan - Plan 58-year-old man with Acute hypoxic respiratory failure possibly secondary to PCP pneumonia HIV positive Pericardial effusion -Chest CT 04/20 shows interval development of moderate-sized pericardial effusion; Persistent diffuse interstitial lung disease with scattered emphysematous changes; Interval development of minimal nodular infiltrate within the right lower lobe posteriorly. -Echocardiogram 04/21 showed EF 60-65%, small pericardial effusion, no pre- tamponade findings -HIV positive diagnosed on this admission, lymphocyte profile with CD4 count 30 -Blood cultures with NGTD -Sputum culture with heavy growth normal respiratory asa, AFB negative -Continue on oxygen as needed, currently on 3L [place] -Continue antibiotics with azithro; coverage for PCP/atypical PNA. Bactrim on hold per ID -TB PCR negative -Currently on prednisone 20mg bid 04/25 with goal to taper off in the next few days -Infectious disease following, appreciate assistance Oropharyngeal Candidiasis, Esophagitis, Gastric Ulcers, Gastritis -Continue on Diflucan and Magic Mouthwash -EGD 04/24 showed friable esophageal mucosa with esophagitis, 2 gastric ulcers, and gastritis -on Protonix 40mg bid -Avoid NSAIDs -Soft diet Polysubstance abuse -Patient was counseled on his polysubstance abuse and he says he is seeking help. Severe protein calorie malnutrition: acute -BMI 14. -Patient very cachectic on exam with bitemporal wasting. -Give Ensure shakes with meals -continue calorie count [place], Hyperkalemia, Hyponatremia: Cr increased to 2.04 with K 5.9, Na 129. Secondary to poor oral intake and dehydration. -Continue IVF hydration with NS at 100cc/hr Lovenox for DVT prophylaxis
--- NOTE | 2018-04-26 10:42 | P.PNID ---
Subjective Remarks: Patient is a 58-year-old male, presented to the hospital complaining of shortness of breath associated with some chest pain. Patient was recently hospitalized April 13 and at that time he presented with 2-week history of shortness of breath cough. His chest x-ray showed bilateral interstitial infiltrate and some patchy infiltrate on the left lung. He was afebrile at that time, and his white count was normal. Patient was treated as pneumonia, and he had improvement and he was discharged to complete a total of 7 days of antibiotic for pneumonia. He was given Levaquin. Patient came back this time complaining of shortness of breath again and this time he is also complaining of some chest discomfort when he breathes. He has some cough but not really able to bring up any phlegm. Has not had any fever. Patient also complaining of some difficulty swallowing and pain with swallowing. He has had some nausea but no magdaleno vomiting. He denies any urinary complaints. His chest x-ray this time has shown some improvement in the infiltrates on the left lung. HIV testing was done and HIV 1 came back positive. His LDH is elevated. His white count was a little bit up and it is 11,000. CT of the chest did not show any significant change compared to his prior CT but except for the presence of pericardial effusion. 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 He has had problem with spontaneous pneumothorax, and actually in 2011 he underwent VATS procedure with right upper lobe bullectomy, and partial pleurectomy. He has not really followed up with any shingle carrier. Patient denies any sexual contact with known HIV patients. He denies any history of STD. He has never been in usp. He denies IV drug use but does smoke crack cocaine. Patient has been tested HIV negative back in 2006. He has no prior history of exposure to tuberculosis or having a diagnosis of tuberculosis. Patient also has had significant weight loss recently. Infectious disease consultation has been requested to evaluate the patient with no HIV positive disease and possible PCP. Notes reviewed Temps ok Swallowing is better Minimal cough Not SOB Creatinine lower, still elevated CXR clear UA ok Urine eos negative renal US no obstruction EGD showed esophagitis, gastritis and gastric ulcers PCP stain negative CD4 30 Mycoplasma - old infection Chlamydia negative TB quantiferon negative MTB PCR negative Antibiotics: Bactrim Diflucan 400 Zithromax Lines: PIV Past Medical History: Bullous emphysema with blebs Hx VATS procedure with RUL bullectomy and partial pleurectomy Spontaneous pneumothorax Tobacco abuse Hx of hernia repair Allergies/Adverse Reactions: Allergies No Known Allergies Allergy (Verified 04/18/18 08:47) Objective Vital Signs 04/25/18 12:00 04/25/18 16:00 04/25/18 20:00 Temperature 97.6 F 97.3 F L 97.6 F Pulse Rate 80 78 73 Respiratory Rate 20 16 18 Blood Pressure 134/92 H 151/90 H 129/85 Pulse Oximetry 99 100 98 04/25/18 20:54 04/26/18 00:00 04/26/18 03:00 Temperature 97.5 F L Pulse Rate 73 69 Respiratory Rate 18 Blood Pressure 140/87 Pulse Oximetry 94 L 98 04/26/18 05:39 04/26/18 07:35 Temperature 98.4 F 97.4 F L Pulse Rate 75 68 Respiratory Rate 18 18 Blood Pressure 126/88 129/78 Pulse Oximetry 99 100 Intake & Output 04/25/18 04/26/18 04/26/18 18:59 06:59 18:59 Intake Total 900 / 900 Output Total 950 / 950 Balance -50 / -50 Intake: IV 900 / 900 NS Inj 1,000 ML @ 100 mls/hr IV 900 / 900 .CONT .Q10H STEVIE Rx#:[id number] Output: Urine 950 / 950 Other: # Voids 4 Date of Last Bowel Movement 04/22/18 04/18/18 08:50 Blood - Peripheral Aerobic Blood Culture - Final No growth in 5 days 04/18/18 08:50 Blood - Peripheral Anaerobic Blood Culture - Final No growth in 5 days 04/18/18 08:55 Blood - Peripheral Aerobic Blood Culture - Final No growth in 5 days 04/18/18 08:55 Blood - Peripheral Anaerobic Blood Culture - Final No growth in 5 days Lab - Hematology Results 04/25/18 06:06 WBC 5.8 RBC 5.53 Hgb 12.6 L Hct 40.0 MCV 72.2 L MCH 22.7 L MCHC 31.5 L RDW 15.3 Plt Count 381 MPV 7.8 Neut % (Auto) 91.6 H Lymph % (Auto) 4.3 L [place] % (Auto) 3.8 Eos % (Auto) 0.0 Baso % (Auto) 0.3 Neut # (Auto) 5.3 Lymph # (Auto) 0.3 L [place] # (Auto) 0.2 Eos # (Auto) 0.0 Baso # (Auto) 0.0 WBC Differential . Differential Comment Auto diff final Lab - Chemistry Results 04/25/18 04/25/18 04/25/18 06:06 16:50 22:43 Sodium 129 L 130 L 133 L Potassium 5.9 H 5.9 H 5.3 H Chloride 95 L 96 L 101 Carbon Dioxide 23.0 21.8 23.7 Anion Gap 11 12 8 BUN 64 H 68 H 64 H Creatinine 2.04 H 2.42 H 2.03 H Estimated GFR 41 L 34 L 41 L Random Glucose 103 104 115 H Calcium 9.5 9.6 9.2 04/26/18 06:16 Sodium 132 L Potassium 5.0 Chloride 100 Carbon Dioxide 24.2 Anion Gap 8 BUN 51 H Creatinine 1.75 H Estimated GFR 49 L Random Glucose 98 Calcium 8.6 Imaging: ITS Impressions Chest CT 04/20/18 00:00 CONCLUSION: 1. Interval development of moderate-sized pericardial effusion. 2. Persistent diffuse interstitial lung disease with scattered emphysematous changes. 3. Interval development of minimal nodular infiltrate within the right lower lobe posteriorly. 4. Coronary artery calcifications. Abdomen/Bladder Ultrasound 04/25/18 00:00 CONCLUSION: 1. Kidneys are echogenic which can be seen with medical renal disease. 2. Minimally complex right renal cyst. Chest X-Ray 04/25/18 00:00 CONCLUSION: Hyperinflation with no acute cardiopulmonary process. Physical Exam: GENERAL: awake and alert, not in respiratory distress. SKIN: Cool and dry. No generalized rash, no ecchymoses and no evidence of embolic lesions. HEAD: Atraumatic. Normocephalic. No temporal wasting, or tenderness. EYES: [place] conjunctiva. No petechia or hemorrhage. Pupils equal, round and reactive to light. Extraocular movements full and intact. No scleral icterus. No injection or drainage. EARS, NOSE AND THROAT: Nose without bleeding or purulent nasal discharge. No sinus tenderness. Mucous membranes moist. Oral thrush in buccal mucosa resolved, still with some white coating on tongue, better. NECK: Trachea midline. Supple and not tender, no meningeal signs CARDIOVASCULAR: Regular rate and rhythm. No murmurs, rubs or gallops heard RESPIRATORY: poor air movement ABDOMEN: Soft, flat, non-tender, nondistended. Bowel sounds present and normoactive. No guarding. No rebound. No organomegaly. EXTREMITIES: No clubbing, cyanosis, or edema.No joint effusion, has good ROM. No calf tenderness. NEUROLOGICAL: Awake and alert. Cranial nerves grossly intact. Motor grossly within normal limits. PSYCHIATRIC: Normal affect, calm and cooperative. LINE: No evidence of infection Assessment and Plan - Plan Impression SOB, cough, has bilateral interstitial infiltrates, new HIV, suspicious for PCP Has known bullous emphysema, with a lot of blebs in upper lobes Weight loss Odynophagia, ?che esophagitis, has bad oral thrush - ?other etiology Acute rise in creatinine, etiology? - concern with bactrim Recommendation Continue Steroids Restart Bactrim, decrease dose Follow BMP, if rises again, will need to switch to a different PCP meds ( Possibly Clinda/Primaquine) Continue high dose Diflucan - follow biopsy results Continue zithromax Repeat BMP Monitor progress
--- NOTE | 2018-04-26 12:26 | P.DIET ---
Nutritional Evaluation Type of nutrition evaluation: initial Nutrition screening: [facility] (Malnutrition) Screening comments: NEW [facility] (04/25); Calorie Counting- pt interested in PEG Subjective Subjective Comments: Nurse reports the pt was able to eat his oatmeal this am. From 04/25 note: Per Gill note: The patient is s/p EGD yesterday 04/24 which showed friable esophagitis, gastric ulcers, and gastritis. He reports continued odynophagia and dysphagia today. He reports minimal oral intake and lack of appetite, although looking forward to trying his eggs and pancake this morning. No bowel movement since Sunday, 4 days ago. Objective - Diagnosis Hypoxic Respiratory Failure - Objective % IBW: 63 (IBW = 160#) Body Weight Used for Calculations: Actual (45.6 kg) Energy Needs - Lower Range (kCal/kg): 35 Energy Needs - Upper Range (kCal/kg): 40 Lower Limit kCal/kg (kCals): 1,596 Upper Limit kCal/kg (kCals): 1,824 Lower Limit Protein Factor (Grams per Kg): 1.5 Upper Limit Protein Factor (Grams per Kg): 2.0 Lower Protein Needs (Protein): 68 Upper Protein Needs (Protein): 91 Dietitian Reviewed in Medical Record: Current diet, Curent medications, Intake & Output, Labs, Medical history Diet Order: Cardiac, Soft Objective Comments: Hx includes positive HIV and thrush Assessment Assessment: Pt is at high nutrition risk 2' to dx, poor po intake, poor appetite and low wt for ht with a BMI of 14.8. Will change Ensure to Ensure Enlive for added nutrition: each 8 oz serving provides 350 kcals and 20 gms protein. Will also send Ensure pudding at lunch and dinner. Pt may also benefit from an appetite stimulant like marinol and a daily MVI/min. Calorie counts initiated and will run from 04/26-04/29. RD following. Recommendations: 1. Diet as ordered 2. Ensure Enlive tid and Ensure Pudding bid 3. Please order MVI/min 4. Consider Marinol 5. Calorie counts 04/26-04/29 Dietitian to Monitor: Lab values, Supplement acceptance, Intake & Output, Diet tolerance, Weight change, PO Intake, Swallow recommendations, Medical course
--- NOTE | 2018-04-26 16:05 | P.PNGI ---
Subjective Interval history: Patient sitting up in bed eating lunch meal. Reports no difficulty eating soft foods like oatmeal at this time. <TonioTiny - Last Filed: 04/26/18 16:00> Physical Exam Vital signs: Vital Signs 04/25/18 20:00 04/25/18 20:54 04/26/18 00:00 Temperature 97.6 F 97.5 F L Pulse Rate 73 73 Respiratory Rate 18 18 Blood Pressure 129/85 140/87 Pulse Oximetry 98 94 L 98 04/26/18 03:00 04/26/18 05:39 04/26/18 07:35 Temperature 98.4 F 97.4 F L Pulse Rate 69 75 68 Respiratory Rate 18 18 Blood Pressure 126/88 129/78 Pulse Oximetry 99 100 04/26/18 11:54 04/26/18 15:37 Temperature 97.4 F L 97.9 F Pulse Rate 86 70 Respiratory Rate 18 18 Blood Pressure 131/81 121/77 Pulse Oximetry 100 100 Intake & Output 04/25/18 04/26/18 04/26/18 18:59 06:59 18:59 Intake Total 900 / 900 1000 / 1000 Output Total 950 / 950 300 / 300 Balance -50 / -50 700 / 700 Intake: IV 900 / 900 1000 / 1000 NS Inj 1,000 ML @ 100 mls/hr IV 900 / 900 1000 / 1000 .CONT .Q10H [facility] Rx#:[id number] Output: Urine 950 / 950 300 / 300 Other: # Voids 4 Date of Last Bowel Movement 04/22/18 04/22/18 - Constitutional no acute distress, chronically ill appearing - Routine HEENT Exam Head: Present: normocephalic ENT: Present: mucous membranes moist - Routine Respiratory Exam Present: CTA bilaterally. Absent: accessory muscle use - Routine Abdominal Exam Present: soft, normoactive bowel sounds. Absent: tenderness, distended, guarding, firm - Routine Extremities Exam Absent: edema - Routine Skin Exam Present: dry, warm - Routine Neurological Exam Present: alert, oriented X3 - Routine Psychiatric Exam Present: normal affect, cooperative <TonioTiny - Last Filed: 04/26/18 16:00> Vital signs: Vital Signs 04/25/18 20:00 04/25/18 20:54 04/26/18 00:00 Temperature 97.6 F 97.5 F L Pulse Rate 73 73 Respiratory Rate 18 18 Blood Pressure 129/85 140/87 Pulse Oximetry 98 94 L 98 04/26/18 03:00 04/26/18 05:39 04/26/18 07:35 Temperature 98.4 F 97.4 F L Pulse Rate 69 75 68 Respiratory Rate 18 18 Blood Pressure 126/88 129/78 Pulse Oximetry 99 100 04/26/18 11:54 04/26/18 15:37 04/26/18 17:36 Temperature 97.4 F L 97.9 F Pulse Rate 86 70 Respiratory Rate 18 18 Blood Pressure 131/81 121/77 Pulse Oximetry 100 100 99 Intake & Output 04/26/18 04/26/18 04/27/18 06:59 18:59 06:59 Intake Total 900 / 900 1600 / 1600 Output Total 950 / 950 300 / 300 Balance -50 / -50 1300 / 1300 Intake: IV 900 / 900 1000 / 1000 NS Inj 1,000 ML @ 100 mls/hr IV 900 / 900 1000 / 1000 .CONT .Q10H [facility] Rx#:[id number] Oral 600 / 600 Output: Urine 950 / 950 300 / 300 Other: # Voids 4 Date of Last Bowel Movement 04/22/18 04/22/18 <Gerhard De La Rosa E - Last Filed: 04/26/18 19:37> Results - Labs CBC & Chem 7: 04/25/18 06:06 04/26/18 06:16 Laboratory Results - last 24 hr 04/25/18 04/25/18 04/25/18 16:50 20:45 20:45 Sodium 130 L Potassium 5.9 H Chloride 96 L Carbon Dioxide 21.8 Anion Gap 12 BUN 68 H Creatinine 2.42 H Estimated GFR 34 L Random Glucose 104 Calcium 9.6 Urine Color Yellow Urine Clarity Turbid H Urine pH 5.0 Ur Specific [place] 1.020 Urine Protein Negative Urine Glucose (UA) Negative Urine Ketones Negative Urine Occult Blood Negative Urine Nitrate Negative Urine Bilirubin Negative Urine Urobilinogen Less than 2 Ur Leukocyte Esterase Negative Urine WBC 3 Ur Squamous Epith Cells 1 Uric Acid Crystals Many H Hyaline Casts 4 Ur Microscopic Review Not Reportable Urine Eosinophils None seen 04/25/18 04/26/18 22:43 06:16 Sodium 133 L 132 L Potassium 5.3 H 5.0 Chloride 101 100 Carbon Dioxide 23.7 24.2 Anion Gap 8 8 BUN 64 H 51 H Creatinine 2.03 H 1.75 H Estimated GFR 41 L 49 L Random Glucose 115 H 98 Calcium 9.2 8.6 Urine Color Urine Clarity Urine pH Ur Specific [place] Urine Protein Urine Glucose (UA) Urine Ketones Urine Occult Blood Urine Nitrate Urine Bilirubin Urine Urobilinogen Ur Leukocyte Esterase Urine WBC Ur Squamous Epith Cells Uric Acid Crystals Hyaline Casts Ur Microscopic Review Urine Eosinophils Microbiology 04/19/18 17:48 Sputum - Expectorated Sputum Acid Fast Bacilli Smear - Final No acid fast bacilli seen 04/19/18 17:48 Sputum - Expectorated Sputum Mycobacterial Culture - Preliminary No growth in 1 week - Imaging Impressions Abdomen/Bladder Ultrasound 04/25/18 00:00 CONCLUSION: 1. Kidneys are echogenic which can be seen with medical renal disease. 2. Minimally complex right renal cyst. - Procedures 04/24/18 - EGD by Dr. De La Rosa showed friable esophagitis, gastric ulcers, gastritis. <Tiny Elizalde - Last Filed: 04/26/18 16:00> - Labs CBC & Chem 7: 04/25/18 06:06 04/26/18 06:16 Laboratory Results - last 24 hr 04/25/18 04/25/18 04/25/18 20:45 20:45 22:43 Sodium 133 L Potassium 5.3 H Chloride 101 Carbon Dioxide 23.7 Anion Gap 8 BUN 64 H Creatinine 2.03 H Estimated GFR 41 L Random Glucose 115 H Calcium 9.2 Urine Color Yellow Urine Clarity Turbid H Urine pH 5.0 Ur Specific [place] 1.020 Urine Protein Negative Urine Glucose (UA) Negative Urine Ketones Negative Urine Occult Blood Negative Urine Nitrate Negative Urine Bilirubin Negative Urine Urobilinogen Less than 2 Ur Leukocyte Esterase Negative Urine WBC 3 Ur Squamous Epith Cells 1 Uric Acid Crystals Many H Hyaline Casts 4 Ur Microscopic Review Not Reportable Urine Eosinophils None seen 04/26/18 06:16 Sodium 132 L Potassium 5.0 Chloride 100 Carbon Dioxide 24.2 Anion Gap 8 BUN 51 H Creatinine 1.75 H Estimated GFR 49 L Random Glucose 98 Calcium 8.6 Urine Color Urine Clarity Urine pH Ur Specific [place] Urine Protein Urine Glucose (UA) Urine Ketones Urine Occult Blood Urine Nitrate Urine Bilirubin Urine Urobilinogen Ur Leukocyte Esterase Urine WBC Ur Squamous Epith Cells Uric Acid Crystals Hyaline Casts Ur Microscopic Review Urine Eosinophils Microbiology 04/19/18 17:48 Sputum - Expectorated Sputum Acid Fast Bacilli Smear - Final No acid fast bacilli seen 04/19/18 17:48 Sputum - Expectorated Sputum Mycobacterial Culture - Preliminary No growth in 1 week <Gerhard De La Rosa - Last Filed: 04/26/18 19:37> Assessment and Plan (1) Dysphagia Status: Acute Code(s): R13.10 - Dysphagia, unspecified (2) Odynophagia Status: Acute Code(s): R13.10 - Dysphagia, unspecified - Plan 04/26/2018 Dysphagia/odynophagia Post EGD--esophagitis, gastric ulcer and gastritis. Patient recently diagnosed with HIV and currently has thrush being treated with Magic mouthwash and nystatin Plan -Soft foods/low residue -Patient advised to chew food slowly -Continue Magic mouthwash and nystatin -Await biopsies from EGD -Continue PPI -Avoid NSAIDs and aspirin -Recommended repeat EGD in 2 months -Patient agrees to follow-up with GI post discharge This patient has been seen by myself and Dr. De La Rosa and this note is written on his behalf - Attending Attestation Dr. De La Rosa <Tiny Elizalde - Last Filed: 04/26/18 16:00> (1) Dysphagia Status: Acute Code(s): R13.10 - Dysphagia, unspecified (2) Odynophagia Status: Acute Code(s): R13.10 - Dysphagia, unspecified - Plan Patient seen and examined Agree with above H&P Monitor labs Continue with current supportive care Patient to follow-up with GI post discharge Not much to add at this point from a GI perspective we will sign off <Gerhard De La Rosa - Last Filed: 04/26/18 19:37>
[2018-04-26] MEDS: Enoxaparin Inj 40 MG/0.4 ML Syringe SQ SCH (22:52)
[2018-04-27 05:26] LABS: Calcium 8.6 mg/dL (8.5-10.1); Carbon Dioxide 26.8 meq/L (21.0-32.0)
[2018-04-27] MEDS: Sod Chloride 0.9% Inj 1,000 ML IV.CONT SCH ×3 (09:45→22:56)
[2018-04-27] MEDS: Senna/Docusate Sodium 8.6/50 MG Tablet PO SCH ×2 (09:46→22:55)
[2018-04-27] MEDS: Azithromycin 250 MG Tablet PO SCH (09:46)
[2018-04-27] MEDS: predniSONE 20 MG Tablet PO SCH (09:46)
[2018-04-27] MEDS: Nystatin/Diphenhydramine/Lidocaine Mouthwash (Adult) 120 ML Botttle SWISH-SWAL SCH ×4 (09:47→22:56)
--- NOTE | 2018-04-27 11:01 | P.PN ---
Subjective Interval history: Follow-up acute hypoxic respiratory failure/newly diagnosed HIV April 26, 2018-patient seen and examined, still complains of shortness of breath and currently on 3 L nasal cannula. Also complains of heartburn. Afebrile. April 27, 2018-patient seen and examined, denies any swallowing difficulty and patient able to eat 100% of his meal today. Currently on 1 L nasal cannula. Physical Exam Vital signs: Vital Signs 04/26/18 11:54 04/26/18 15:37 04/26/18 17:36 Temperature 97.4 F L 97.9 F Pulse Rate 86 70 Respiratory Rate 18 18 Blood Pressure 131/81 121/77 Pulse Oximetry 100 100 99 04/26/18 20:00 04/27/18 00:00 04/27/18 06:52 Temperature 97.2 F L 97.6 F Pulse Rate 64 67 Respiratory Rate 18 18 12 Blood Pressure 131/77 136/75 Pulse Oximetry 99 99 04/27/18 07:37 04/27/18 09:00 Temperature 97.5 F L Pulse Rate 69 65 Respiratory Rate 18 Blood Pressure 130/68 Pulse Oximetry 98 Intake & Output 04/26/18 04/27/18 04/27/18 18:59 06:59 18:59 Intake Total 1600 / 1600 1000 / 1000 1000 / 1000 Output Total 300 / 300 Balance 1300 / 1300 1000 / 1000 1000 / 1000 Intake: IV 1000 / 1000 1000 / 1000 1000 / 1000 NS Inj 1,000 ML @ 100 mls/hr IV 1000 / 1000 1000 / 1000 1000 / 1000 .CONT .Q10H [facility] Rx#:[id number] Oral 600 / 600 Output: Urine 300 / 300 Other: Date of Last Bowel Movement 04/22/18 04/22/18 Narrative: GENERAL: Thin cachectic appearing AA male patient in NAD. SKIN: Warm and dry. No rash. HEENT: Normocephalic. Atraumatic. Bitemporal wasting. Pupils equal and round. Mucous membranes pink and moist. Tongue and buccal mucosa with mild white plaques, minimal erythema, improving. CARDIOVASCULAR: Regular rate and rhythm. No murmur appreciated. RESPIRATORY: No accessory muscle use. Some faint coarse breath sounds, otherwise clear to auscultation. Breath sounds equal bilaterally. GASTROINTESTINAL: Scaphoid abdomen, soft, non-tender, nondistended. Normoactive bowel sounds x4. MUSCULOSKELETAL: No obvious deformities. Extremities without clubbing, cyanosis , or edema. NEUROLOGICAL: Awake and alert. No obvious cranial nerve deficits. Motor grossly within normal limits. Moving all extremities spontaneously. Normal speech. PSYCHIATRIC: Appropriate mood and affect; insight and judgment normal. Results - Labs CBC & Chem 7: 04/25/18 06:06 04/27/18 04:39 Laboratory Results - last 24 hr 04/27/18 04:39 Sodium 133 L Potassium 5.0 Chloride 101 Carbon Dioxide 26.8 Anion Gap 5 BUN 34 H Creatinine 1.14 Estimated GFR 80 L Random Glucose 99 Calcium 8.6 Microbiology 04/19/18 17:48 Sputum - Expectorated Sputum Acid Fast Bacilli Smear - Final No acid fast bacilli seen 04/19/18 17:48 Sputum - Expectorated Sputum Mycobacterial Culture - Preliminary No growth in 1 week - Procedures 04/24/18 - EGD by Dr. De La Rosa showed friable esophagitis, gastric ulcers, gastritis. Assessment and Plan - Plan 58-year-old man with Acute hypoxic respiratory failure possibly secondary to PCP pneumonia HIV positive Pericardial effusion -Chest CT 04/20 shows interval development of moderate-sized pericardial effusion; Persistent diffuse interstitial lung disease with scattered emphysematous changes; Interval development of minimal nodular infiltrate within the right lower lobe posteriorly. -Echocardiogram 04/21 showed EF 60-65%, small pericardial effusion, no pre- tamponade findings -HIV positive diagnosed on this admission, lymphocyte profile with CD4 count 30 -Blood cultures with NGTD -Sputum culture with heavy growth normal respiratory asa, AFB negative. Sputum biopsy negative for malignancy -Continue on oxygen as needed, currently on 1L [place] -Continue antibiotics with azithro and Bactrim; coverage for PCP/atypical PNA. Bactrim was restarted yesterday April 26, 2018 -TB PCR negative -Currently on prednisone 20mg bid and will switch to 20 mg daily April 28, 2018 -Infectious disease following, appreciate assistance Oropharyngeal Candidiasis, Esophagitis, Gastric Ulcers, Gastritis -Continue on Diflucan and Magic Mouthwash -EGD 04/24 showed friable esophageal mucosa with esophagitis, 2 gastric ulcers, and gastritis -on Protonix 40mg bid -Avoid NSAIDs Polysubstance abuse -Patient was counseled on his polysubstance abuse and he says he is seeking help. Severe protein calorie malnutrition: acute -BMI 14. -Give Ensure shakes with meals -Continue calorie count -Start Marinol HO[place], Hyperkalemia, Hyponatremia: -d/c IVF hydration Lovenox for DVT prophylaxis
[2018-04-27] MEDS: Enoxaparin Inj 40 MG/0.4 ML Syringe SQ SCH (22:54)
[2018-04-28] MEDS: Sod Chloride 0.9% Inj 1,000 ML IV.CONT SCH ×3 (05:28→23:56)
[2018-04-28 07:50] LABS: Anion Gap 4 meq/L (5-15); Blood Urea Nitrogen 22 mg/dL (7-18); Calcium 8.3 mg/dL (8.5-10.1); Carbon Dioxide 26.9 meq/L (21.0-32.0); Chloride 104 meq/L (98-107); Glomerular Filtration Rate Greater Than 89 mL/min (>89); Glucose,Random 86 mg/dL (74-106); Potassium 4.5 meq/L (3.5-5.1); Sodium 135 meq/L (136-145)
[2018-04-28] MEDS ORDERED: predniSONE 20 MG Tablet PO SCH (09:00)
--- NOTE | 2018-04-28 10:26 | P.PN ---
Subjective Interval history: Follow-up acute hypoxic respiratory failure/newly diagnosed HIV April 26, 2018-patient seen and examined, still complains of shortness of breath and currently on 3 L nasal cannula. Also complains of heartburn. Afebrile. April 27, 2018-patient seen and examined, denies any swallowing difficulty and patient able to eat 100% of his meal today. Currently on 1 L nasal cannula. April 28, 2018-patient seen and examined, currently on room air and denies any shortness of breath. Physical Exam Vital signs: Vital Signs 04/27/18 12:00 04/27/18 13:11 04/27/18 15:03 Temperature 97.4 F L Pulse Rate 82 69 Respiratory Rate 18 12 Blood Pressure 122/76 Pulse Oximetry 99 04/27/18 15:35 04/27/18 17:28 04/27/18 20:00 Temperature 97.6 F 97.9 F Pulse Rate 70 71 90 Respiratory Rate 18 20 Blood Pressure 146/87 H 107/83 Pulse Oximetry 97 98 04/28/18 00:00 04/28/18 04:00 04/28/18 08:00 Temperature 97.4 F L 98.1 F 98.3 F Pulse Rate 92 H 76 71 Respiratory Rate 19 18 18 Blood Pressure 111/67 146/89 H 141/84 H Pulse Oximetry 93 L 96 95 Intake & Output 04/27/18 04/28/18 04/28/18 18:59 06:59 18:59 Intake Total 2600 / 2600 1000 / 1000 1000 / 1000 Output Total 200 / 200 600 / 600 450 / 450 Balance 2400 / 2400 400 / 400 550 / 550 Weight 62.9 kg Intake: IV 2000 / 1999 1000 / 1000 1000 / 1000 NS Inj 1,000 ML @ 100 mls/hr IV 2000 / 2000 1000 / 1000 1000 / 1000 .CONT .Q10H [facility] Rx#:[id number] Oral 600 / 600 Output: Urine 200 / 200 600 / 600 450 / 450 Other: Date of Last Bowel Movement 04/22/18 Narrative: GENERAL: Thin cachectic appearing AA male patient in NAD. SKIN: Warm and dry. No rash. HEENT: Normocephalic. Atraumatic. Bitemporal wasting. Pupils equal and round. Mucous membranes pink and moist. CARDIOVASCULAR: Regular rate and rhythm. No murmur appreciated. RESPIRATORY: No accessory muscle use. Some faint coarse breath sounds, otherwise clear to auscultation. Breath sounds equal bilaterally. GASTROINTESTINAL: Scaphoid abdomen, soft, non-tender, nondistended. Normoactive bowel sounds x4. MUSCULOSKELETAL: No obvious deformities. Extremities without clubbing, cyanosis , or edema. NEUROLOGICAL: Awake and alert. No obvious cranial nerve deficits. Motor grossly within normal limits. Moving all extremities spontaneously. Normal speech. PSYCHIATRIC: Appropriate mood and affect; insight and judgment normal. Results - Labs CBC & Chem 7: 04/25/18 06:06 04/28/18 07:07 Laboratory Results - last 24 hr 04/28/18 07:07 Sodium 135 L Potassium 4.5 Chloride 104 Carbon Dioxide 26.9 Anion Gap 4 L BUN 22 H Creatinine 0.92 Estimated GFR Greater than 89 Random Glucose 86 Calcium 8.3 L - Procedures 04/24/18 - EGD by Dr. De La Rosa showed friable esophagitis, gastric ulcers, gastritis. Assessment and Plan - Plan 58-year-old man with Acute hypoxic respiratory failure possibly secondary to PCP pneumonia HIV positive Pericardial effusion -Chest CT 04/20 shows interval development of moderate-sized pericardial effusion; Persistent diffuse interstitial lung disease with scattered emphysematous changes; Interval development of minimal nodular infiltrate within the right lower lobe posteriorly. -Echocardiogram 04/21 showed EF 60-65%, small pericardial effusion, no pre- tamponade findings -HIV positive diagnosed on this admission, lymphocyte profile with CD4 count 30 -Blood cultures with NGTD -Sputum culture with heavy growth normal respiratory asa, AFB negative. Sputum biopsy negative for malignancy -Continue on oxygen as needed, currently on 1L [place] -Continue antibiotics with azithro and Bactrim; coverage for PCP/atypical PNA. -TB PCR negative -Currently on prednisone 20 mg daily. Taper down -Infectious disease following, appreciate assistance Oropharyngeal Candidiasis, Esophagitis, Gastric Ulcers, Gastritis -Continue on Diflucan and Magic Mouthwash -EGD 04/24 showed friable esophageal mucosa with esophagitis, 2 gastric ulcers, and gastritis -on Protonix 40mg bid -Avoid NSAIDs Polysubstance abuse -Patient was counseled on his polysubstance abuse and he says he is seeking help. Severe protein calorie malnutrition: acute -BMI 14. -Continue calorie count until April 29, 2018 -Continue Marinol [place], Hyperkalemia, Hyponatremia: -s/p IVF hydration Lovenox for DVT prophylaxis
[2018-04-28] MEDS: Azithromycin 250 MG Tablet PO SCH (10:28)
[2018-04-28] MEDS: Senna/Docusate Sodium 8.6/50 MG Tablet PO SCH ×2 (10:29→22:01)
[2018-04-28] MEDS: Nystatin/Diphenhydramine/Lidocaine Mouthwash (Adult) 120 ML Botttle SWISH-SWAL SCH ×4 (10:29→22:00)
[2018-04-28] MEDS: Enoxaparin Inj 40 MG/0.4 ML Syringe SQ SCH (22:01)
--- NOTE | 2018-04-29 08:52 | P.PN ---
Subjective Interval history: Follow-up acute hypoxic respiratory failure/newly diagnosed HIV April 26, 2018-patient seen and examined, still complains of shortness of breath and currently on 3 L nasal cannula. Also complains of heartburn. Afebrile. April 27, 2018-patient seen and examined, denies any swallowing difficulty and patient able to eat 100% of his meal today. Currently on 1 L nasal cannula. April 28, 2018-patient seen and examined, currently on room air and denies any shortness of breath. April 29, 2018-patient seen and examined, back on 1 L nasal cannula; tolerated p.o. without any competition nausea vomiting. No pain with swallowing. However reported 3 episodes of loose stools today Physical Exam Vital signs: Vital Signs 04/28/18 10:58 04/28/18 12:00 04/28/18 13:39 Temperature 98.1 F Pulse Rate 67 88 78 Respiratory Rate 18 Blood Pressure 139/83 Pulse Oximetry 97 04/28/18 15:56 04/28/18 19:39 04/28/18 20:00 Temperature 98.5 F 98.3 F Pulse Rate 97 H 110 H Respiratory Rate 20 18 Blood Pressure 117/82 105/73 Pulse Oximetry 98 99 96 04/28/18 20:30 04/29/18 00:00 04/29/18 00:30 Temperature 98.0 F Pulse Rate 106 H 84 82 Respiratory Rate 20 Blood Pressure 119/77 Pulse Oximetry 33 L 04/29/18 03:03 04/29/18 04:00 04/29/18 04:30 Temperature 97.4 F L Pulse Rate 91 H 83 Respiratory Rate 18 17 Blood Pressure 131/86 Pulse Oximetry 100 Intake & Output 04/28/18 04/29/18 04/29/18 18:59 06:59 18:59 Intake Total 1500 / 1500 1000 / 1000 Output Total 550 / 550 800 / 800 Balance 950 / 950 200 / 200 Weight 43.3 kg Intake: IV 1000 / 1000 1000 / 1000 NS Inj 1,000 ML @ 100 mls/hr IV 1000 / 1000 1000 / 1000 .CONT .Q10H [facility] Rx#:[id number] Oral 500 / 500 Output: Urine 550 / 550 800 / 800 Other: # Voids 3 Date of Last Bowel Movement 04/28/18 04/29/18 # Bowel Movements 1 2 Narrative: GENERAL: Thin cachectic appearing AA male patient in NAD. SKIN: Warm and dry. No rash. HEENT: Normocephalic. Atraumatic. Bitemporal wasting. Pupils equal and round. Mucous membranes pink and moist. CARDIOVASCULAR: Regular rate and rhythm. No murmur appreciated. RESPIRATORY: No accessory muscle use. Some faint coarse breath sounds, otherwise clear to auscultation. Breath sounds equal bilaterally. GASTROINTESTINAL: Scaphoid abdomen, soft, non-tender, nondistended. Normoactive bowel sounds x4. MUSCULOSKELETAL: No obvious deformities. Extremities without clubbing, cyanosis , or edema. NEUROLOGICAL: Awake and alert. No obvious cranial nerve deficits. Motor grossly within normal limits. Moving all extremities spontaneously. Normal speech. PSYCHIATRIC: Appropriate mood and affect; insight and judgment normal. Results - Labs CBC & Chem 7: 04/25/18 06:06 04/28/18 07:07 - Procedures 04/24/18 - EGD by Dr. De La Rosa showed friable esophagitis, gastric ulcers, gastritis. Assessment and Plan - Plan 58-year-old man with Acute hypoxic respiratory failure possibly secondary to PCP pneumonia HIV positive Pericardial effusion -Chest CT 04/20 shows interval development of moderate-sized pericardial effusion; Persistent diffuse interstitial lung disease with scattered emphysematous changes; Interval development of minimal nodular infiltrate within the right lower lobe posteriorly. -Echocardiogram 04/21 showed EF 60-65%, small pericardial effusion, no pre- tamponade findings -HIV positive diagnosed on this admission, lymphocyte profile with CD4 count 30 -Blood cultures with NGTD -Sputum culture with heavy growth normal respiratory asa, AFB negative. Sputum biopsy negative for malignancy -Continue on oxygen as needed, currently on 1L [place] -Continue antibiotics with azithro and Bactrim; coverage for PCP/atypical PNA. -TB PCR negative -Decrease prednisone to 10 mg daily. Taper down -Infectious disease following, appreciate assistance Oropharyngeal Candidiasis, Esophagitis, Gastric Ulcers, Gastritis -Continue on Diflucan and Magic Mouthwash -EGD 04/24 showed friable esophageal mucosa with esophagitis, 2 gastric ulcers, and gastritis -on Protonix 40mg bid -Avoid NSAIDs Polysubstance abuse -Patient was counseled on his polysubstance abuse and he says he is seeking help. Severe protein calorie malnutrition: acute -BMI 14. -Continue calorie count until today April 29, 2018 -Continue Marinol [place], Hyperkalemia, Hyponatremia: -s/p IVF hydration Lovenox for DVT prophylaxis
[2018-04-29] MEDS ORDERED: predniSONE 10 MG Tablet PO SCH (10:00)
[2018-04-29] MEDS: Nystatin/Diphenhydramine/Lidocaine Mouthwash (Adult) 120 ML Botttle SWISH-SWAL SCH ×3 (10:10→17:41)
[2018-04-29] MEDS: Senna/Docusate Sodium 8.6/50 MG Tablet PO SCH (10:10)
[2018-04-29] MEDS: Azithromycin 250 MG Tablet PO SCH (10:16)
[2018-04-29] MEDS: Sod Chloride 0.9% Inj 1,000 ML IV.CONT SCH (10:35)
--- NOTE | 2018-04-29 10:44 | P.PNID ---
Subjective Remarks: Patient is a 58-year-old male, presented to the hospital complaining of shortness of breath associated with some chest pain. Patient was recently hospitalized April 13 and at that time he presented with 2-week history of shortness of breath cough. His chest x-ray showed bilateral interstitial infiltrate and some patchy infiltrate on the left lung. He was afebrile at that time, and his white count was normal. Patient was treated as pneumonia, and he had improvement and he was discharged to complete a total of 7 days of antibiotic for pneumonia. He was given Levaquin. Patient came back this time complaining of shortness of breath again and this time he is also complaining of some chest discomfort when he breathes. He has some cough but not really able to bring up any phlegm. Has not had any fever. Patient also complaining of some difficulty swallowing and pain with swallowing. He has had some nausea but no magdaleno vomiting. He denies any urinary complaints. His chest x-ray this time has shown some improvement in the infiltrates on the left lung. HIV testing was done and HIV 1 came back positive. His LDH is elevated. His white count was a little bit up and it is 11,000. CT of the chest did not show any significant change compared to his prior CT but except for the presence of pericardial effusion. 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 He has had problem with spontaneous pneumothorax, and actually in 2011 he underwent VATS procedure with right upper lobe bullectomy, and partial pleurectomy. 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 Patient denies any sexual contact with known HIV patients. He denies any history of STD. He has never been in [facility]. He denies IV drug use but does smoke crack cocaine. Patient has been tested HIV negative back in 2006. He has no prior history of exposure to tuberculosis or having a diagnosis of tuberculosis. Patient also has had significant weight loss recently. Infectious disease consultation has been requested to evaluate the patient with no HIV positive disease and possible PCP. Notes reviewed Temps ok Swallowing is improving Eating more Had 3 loose stool today NO abdominal pain Minimal cough Not SOB Creatinine down to baseline CXR clear UA ok Urine eos negative renal US no obstruction EGD showed esophagitis, gastritis and gastric ulcers Path report pending PCP stain negative CD4 30 Mycoplasma - old infection Chlamydia negative TB quantiferon negative MTB PCR negative Antibiotics: Bactrim Diflucan 400 Zithromax Lines: PIV Past Medical History: Bullous emphysema with blebs Hx VATS procedure with RUL bullectomy and partial pleurectomy Spontaneous pneumothorax Tobacco abuse Hx of hernia repair Allergies/Adverse Reactions: Allergies No Known Allergies Allergy (Verified 04/18/18 08:47) Objective Vital Signs 04/28/18 10:58 04/28/18 12:00 04/28/18 13:39 Temperature 98.1 F Pulse Rate 67 88 78 Respiratory Rate 18 Blood Pressure 139/83 Pulse Oximetry 97 04/28/18 15:56 04/28/18 19:39 04/28/18 20:00 Temperature 98.5 F 98.3 F Pulse Rate 97 H 110 H Respiratory Rate 20 18 Blood Pressure 117/82 105/73 Pulse Oximetry 98 99 96 04/28/18 20:30 04/29/18 00:00 04/29/18 00:30 Temperature 98.0 F Pulse Rate 106 H 84 82 Respiratory Rate 20 Blood Pressure 119/77 Pulse Oximetry 33 L 04/29/18 03:03 04/29/18 04:00 04/29/18 04:30 Temperature 97.4 F L Pulse Rate 91 H 83 Respiratory Rate 18 17 Blood Pressure 131/86 Pulse Oximetry 100 04/29/18 08:00 04/29/18 09:50 Temperature 98.5 F Pulse Rate 76 70 Respiratory Rate 18 Blood Pressure 138/83 Pulse Oximetry 97 Intake & Output 04/28/18 04/29/18 04/29/18 18:59 06:59 18:59 Intake Total 1500 / 1500 1000 / 1000 Output Total 550 / 550 800 / 800 Balance 950 / 950 200 / 200 Weight 43.3 kg Intake: IV 1000 / 1000 1000 / 1000 NS Inj 1,000 ML @ 100 mls/hr IV 1000 / 1000 1000 / 1000 .CONT .Q10H STEVIE Rx#:[id number] Oral 500 / 500 Output: Urine 550 / 550 800 / 800 Other: # Voids 3 Date of Last Bowel Movement 04/28/18 04/29/18 # Bowel Movements 1 2 04/19/18 17:48 Sputum - Expectorated Sputum Acid Fast Bacilli Smear - Final No acid fast bacilli seen 04/19/18 17:48 Sputum - Expectorated Sputum Mycobacterial Culture - Preliminary No growth in 1 week Lab - Chemistry Results 04/28/18 07:07 Sodium 135 L Potassium 4.5 Chloride 104 Carbon Dioxide 26.9 Anion Gap 4 L BUN 22 H Creatinine 0.92 Estimated GFR Greater than 89 Random Glucose 86 Calcium 8.3 L Imaging: ITS Impressions Chest CT 04/20/18 00:00 CONCLUSION: 1. Interval development of moderate-sized pericardial effusion. 2. Persistent diffuse interstitial lung disease with scattered emphysematous changes. 3. Interval development of minimal nodular infiltrate within the right lower lobe posteriorly. 4. Coronary artery calcifications. Abdomen/Bladder Ultrasound 04/25/18 00:00 CONCLUSION: 1. Kidneys are echogenic which can be seen with medical renal disease. 2. Minimally complex right renal cyst. Chest X-Ray 04/25/18 00:00 CONCLUSION: Hyperinflation with no acute cardiopulmonary process. Physical Exam: GENERAL: awake and alert, not in respiratory distress. SKIN: Cool and dry. No generalized rash, no ecchymoses and no evidence of embolic lesions. HEAD: Atraumatic. Normocephalic. No temporal wasting, or tenderness. EYES: [place] conjunctiva. No petechia or hemorrhage. Pupils equal, round and reactive to light. Extraocular movements full and intact. No scleral icterus. No injection or drainage. EARS, NOSE AND THROAT: Nose without bleeding or purulent nasal discharge. No sinus tenderness. Mucous membranes moist. Oral mucosa clear NECK: Trachea midline. Supple and not tender, no meningeal signs CARDIOVASCULAR: Regular rate and rhythm. No murmurs, rubs or gallops heard RESPIRATORY: poor air movement ABDOMEN: Soft, flat, non-tender, nondistended. Bowel sounds present and normoactive. No guarding. No rebound. No organomegaly. EXTREMITIES: No clubbing, cyanosis, or edema.No joint effusion, has good ROM. No calf tenderness. NEUROLOGICAL: Awake and alert. Cranial nerves grossly intact. Motor grossly within normal limits. PSYCHIATRIC: Normal affect, calm and cooperative. LINE: No evidence of infection Assessment and Plan - Plan Impression SOB, cough, has bilateral interstitial infiltrates, new HIV, suspicious for PCP Has known bullous emphysema, with a lot of blebs in upper lobes Weight loss Odynophagia, ?che esophagitis, has bad oral thrush - ?other etiology Acute rise in creatinine, etiology? - concern with bactrim Recommendation Continue Steroids Continue Bactrim, increase dose - follow BMP - give 21 days total; end date May 09, then PCP prophylaxis Bactrim DS 1 po daily Change Zithromax to MAC prophylaxis He will need follow-up at HIV clinic for his care Taper steroids until May 09 Continue high dose Diflucan - give 14 days, then decrease to 100 daily If more diarrhea, check stool for C diff Monitor progress Clinically improving Explained plan to the patient
[2018-04-29 10:54] VITALS: O2SAT 99
[2018-04-29 13:21] VITALS: BP 127/82; PULSE 95; RESP 20; TEMP 98.4
--- NOTE | 2018-04-29 14:01 | P.DIET ---
Nutritional Evaluation Type of nutrition evaluation: follow[place]up [place] [facility] [place] [facility] [place] Calorie Counting- pt interested in PEG Calorie counts completed: only 2 meals accurately recorded. Subjective Subjective Comments: Pt is not drinking the Ensure. From 04/26: Nurse reports the pt was able to eat his oatmeal this am. From 04/25 note: Per Drs note: The patient is s/p EGD yesterday 04/24 which showed friable esophagitis, gastric ulcers, and gastritis. He reports continued odynophagia and dysphagia today. He reports minimal oral intake and lack of appetite, although looking forward to trying his eggs and pancake this morning. No bowel movement since Sunday, 4 days ago. Objective - Diagnosis Hypoxic Respiratory Failure - Objective % IBW: 63 (IBW = 160#) Body Weight Used for Calculations: Actual (45.6 kg) Energy Needs - Lower Range (kCal/kg): 35 Energy Needs - Upper Range (kCal/kg): 40 Lower Limit kCal/kg (kCals): 1,596 Upper Limit kCal/kg (kCals): 1,824 Lower Limit Protein Factor (Grams per Kg): 1.5 Upper Limit Protein Factor (Grams per Kg): 2.0 Lower Protein Needs (Protein): 68 Upper Protein Needs (Protein): 91 Dietitian Reviewed in Medical Record: Current diet, Curent medications, Intake & Output, Labs, Medical history Diet Order: Cardiac, Soft Objective Comments: Hx includes positive HIV and thrush Assessment Assessment: Pt is at high nutrition risk 2' to dx, poor po intake, poor appetite and low wt for ht with a BMI of 14.1. Will change Ensure to Ensure Enlive for added nutrition: each 8 oz serving provides 350 kcals and 20 gms protein. Will also send Ensure pudding at lunch and dinner. Pt may also benefit from a daily MVI/ min. Extrapolating from the 2 meals that were recorded for calorie count, the pt is not adequately meeting his nutritional needs. Average po intake is ~968 kcals and 39 gms protein. This meets 53% of his kcaloric needs and 48% of his protein needs. Recommendations: 1. Diet as ordered 2. Ensure Enlive tid and Ensure Pudding bid 3. Please order MVI/min 4. Continue Marinol 5. Consider TF Dietitian to Monitor: Lab values, Supplement acceptance, Intake & Output, Diet tolerance, Weight change, PO Intake, Swallow recommendations, Medical course
--- NOTE | 2018-04-29 14:45 | P.DS ---
Date of admission: 04/18/18 10:09 Primary care physician: No Primary Care Physician Brief History from admission: Mr. Landry is a 58-year-old -[place]el[place] male with a history of substance abuse, tobacco abuse who presented to the emergency department due to dyspnea, chest pain associated with breathing. Patient denies any cough, fever, sputum production. He reports 20-25 pound weight loss over the last 1 month. Patient denies any radiation of his chest pain, no sweating or nausea vomiting. No abdominal pain. No changes in bowel or bladder habits. On arrival, his saturation was low documented saturation 90% on arrival. However with supplemental oxygen his saturation went up to 96-98%. DS: Medications - Discharge Medications Prescriptions: azithromycin 1,200 mg PO Q7D #8 tab dronabinol 5 mg PO BID@1100,1600 #60 cap fluconazole 400 mg PO DAILY #4 tab fluconazole 100 mg PO DAILY #30 tab nystatin 500,000 unit PO Q8HR #30 tab prednisone 10 mg PO DAILY #10 tab sulfamethoxazole-trimethoprim 2 tab PO Q8H #30 tab sulfamethoxazole-trimethoprim [Bactrim DS] 1 tab PO DAILY #30 tab DS: Summary Hospital Course: While in hospital, patient was treated for: Acute hypoxic respiratory failure possibly secondary to PCP pneumonia HIV positive Pericardial effusion -Chest CT 04/20 shows interval development of moderate-sized pericardial effusion; Persistent diffuse interstitial lung disease with scattered emphysematous changes; Interval development of minimal nodular infiltrate within the right lower lobe posteriorly. -Echocardiogram 04/21 showed EF 60-65%, small pericardial effusion, no pre- tamponade findings -HIV positive diagnosed on this admission, lymphocyte profile with CD4 count 30 -Blood cultures with NGTD -Sputum culture with heavy growth normal respiratory asa, AFB negative. Sputum biopsy negative for malignancy -Continue on oxygen as needed, currently on 1L [place] -Continue antibiotics with azithro and Bactrim; coverage for PCP/atypical PNA. -TB PCR negative -prednisone 10 mg daily. Taper down -Infectious disease following, appreciate assistance Oropharyngeal Candidiasis, Esophagitis, Gastric Ulcers, Gastritis -Continue on Diflucan and Magic Mouthwash -EGD 04/24 showed friable esophageal mucosa with esophagitis, 2 gastric ulcers, and gastritis -on Protonix 40mg bid -Avoid NSAIDs Polysubstance abuse -Patient was counseled on his polysubstance abuse and he says he is seeking help. Severe protein calorie malnutrition: acute -BMI 14. -Continue calorie count until today April 29, 2018 -Continue Marinol [place], Hyperkalemia, Hyponatremia: -s/p IVF hydration Lovenox for DVT prophylaxis Patient will be discharged on Diflucan 400 mg daily until May 03 second then start Diflucan prophylactic dose 100 mg daily, Bactrim at current dose until May 09 then Bactrim DS prophylactic for PCP; azithromycin current prophylactic dose and prednisone until May 09 - Time Spent with Patient Total time spent providing and/or coordinating discharge services: Less than 30 minutes - Quality: VTE Deep Vein Thrombosis/Pulmonary Embolism Present on Admission: No Exam Vital signs: Vital Signs 04/28/18 15:56 04/28/18 19:39 04/28/18 20:00 Temperature 98.5 F 98.3 F Pulse Rate 97 H 110 H Respiratory Rate 20 18 Blood Pressure 117/82 105/73 Pulse Oximetry 98 99 96 04/28/18 20:30 04/29/18 00:00 04/29/18 00:30 Temperature 98.0 F Pulse Rate 106 H 84 82 Respiratory Rate 20 Blood Pressure 119/77 Pulse Oximetry 33 L 04/29/18 03:03 04/29/18 04:00 04/29/18 04:30 Temperature 97.4 F L Pulse Rate 91 H 83 Respiratory Rate 18 17 Blood Pressure 131/86 Pulse Oximetry 100 04/29/18 08:00 04/29/18 09:50 04/29/18 10:53 Temperature 98.5 F Pulse Rate 76 70 Respiratory Rate 18 Blood Pressure 138/83 Pulse Oximetry 97 99 04/29/18 12:00 Temperature 98.4 F Pulse Rate 95 H Respiratory Rate 20 Blood Pressure 127/82 Pulse Oximetry 99 Intake & Output 04/28/18 04/29/18 04/29/18 18:59 06:59 18:59 Intake Total 1500 / 1500 1000 / 1000 600 / 600 Output Total 550 / 550 800 / 800 Balance 950 / 950 200 / 200 600 / 600 Weight 43.3 kg Intake: IV 1000 / 1000 1000 / 1000 600 / 600 NS Inj 1,000 ML @ 100 mls/hr IV 1000 / 1000 1000 / 1000 600 / 600 .CONT .Q10H STEVIE Rx#:[id number] Oral 500 / 500 Output: Urine 550 / 550 800 / 800 Other: # Voids 3 Date of Last Bowel Movement 04/28/18 04/29/18 04/29/18 # Bowel Movements 1 2 Narrative: GENERAL: Thin cachectic appearing AA male patient in NAD. SKIN: Warm and dry. No rash. HEENT: Normocephalic. Atraumatic. Bitemporal wasting. Pupils equal and round. Mucous membranes pink and moist. CARDIOVASCULAR: Regular rate and rhythm. No murmur appreciated. RESPIRATORY: No accessory muscle use. Some faint coarse breath sounds, otherwise clear to auscultation. Breath sounds equal bilaterally. GASTROINTESTINAL: Scaphoid abdomen, soft, non-tender, nondistended. Normoactive bowel sounds x4. MUSCULOSKELETAL: No obvious deformities. Extremities without clubbing, cyanosis , or edema. NEUROLOGICAL: Awake and alert. No obvious cranial nerve deficits. Motor grossly within normal limits. Moving all extremities spontaneously. Normal speech. PSYCHIATRIC: Appropriate mood and affect; insight and judgment normal. Results Procedures completed during hospitalization: 04/24/18 - EGD by Dr. De La Rosa showed friable esophagitis, gastric ulcers, gastritis. Pending studies at discharge: Pending at discharge 04/24/18 07:15 Surgical [PTH] Routine Labs on day of discharge: Preliminary micro results at discharge 04/19/18 17:48 Mycobacterial Culture - Preliminary Sputum - Expectorated Sputum No growth in 1 week - Impressions ITS Impressions Chest CT 04/20/18 00:00 CONCLUSION: 1. Interval development of moderate-sized pericardial effusion. 2. Persistent diffuse interstitial lung disease with scattered emphysematous changes. 3. Interval development of minimal nodular infiltrate within the right lower lobe posteriorly. 4. Coronary artery calcifications. Abdomen/Bladder Ultrasound 04/25/18 00:00 CONCLUSION: 1. Kidneys are echogenic which can be seen with medical renal disease. 2. Minimally complex right renal cyst. Chest X-Ray 04/25/18 00:00 CONCLUSION: Hyperinflation with no acute cardiopulmonary process. Discharge Plan - Discharge Disposition Patient Disposition: Discharge Home - Discharge Condition Condition: Fair - Discharge Order Discharge Orders: Discharge Order (Routine); Ordered 04/29/18 Ordered By: Lai العلي - Physicians Team Primary Care Provider: Primary Care Physici,No Attending Provider: Lai العلي Other Providers: Guadalupe Argueta MD ; Gerhard De La Rosa MD
--- NOTE | 2018-04-29 20:46 | ECG ---
Date Performed: 04/25/2018 Time Performed: 15:54:04 PTAGE: 58 years EKG: Normal Sinus rhythm . PROLONGED QT INTERVAL Since previous tracing, no significant change noted ABNORMAL ECG PREVIOUS TRACING : 04/18/2018 08.49 DOCTOR: Dash Landry Interpretating Date/Time 04/29/2018 20:44:49
== END 2018-04-29 18:45 | disposition home or self-care (01) ==
LOC: NEDA 08:26 → NEPE 08:26 → OBSVTOIN 10:09 → NEDA 13:42 → NEPGCP 13:44 → N05 04-22 22:00
PROVIDERS: ADMIT Hospitalist; ATTEND Hospitalist